=== PATIENT | male | born 1950 | race Caucasian/White ===

== ENCOUNTER → 2016-04-14 | Outpatient (CLI) | payer MEDICARE, OTHER ==
[2016-04-14 14:42] LABS: CREATININE FOR GFR 1.85 MG/DL (0.70-1.30); GLOMERULAR FILTRATION RATE 39.1 (>49)
== END ==
LOC: M LAB 12:19
DX: N20.0 Calculus of kidney (principal)

== ENCOUNTER → 2016-05-16 | Outpatient (REF) | payer MEDICARE, OTHER ==
[2016-05-16 19:39] LABS: INR 1.6
== END ==
LOC: M LAB REF 17:08
PROVIDERS: ATTEND Nurse Practitioner Family
DX: Z86.718 Personal history of other venous thrombosis and embolism (principal)

== ENCOUNTER → 2016-05-18 | Outpatient (REF) | payer MEDICARE, OTHER ==
[2016-05-18 17:00] LABS: INR 1.52
== END ==
LOC: M LAB REF 16:11
PROVIDERS: ATTEND Nurse Practitioner Family
DX: Z86.718 Personal history of other venous thrombosis and embolism (principal)

== ENCOUNTER → 2016-07-14 | Outpatient (REF) | payer MEDICARE, OTHER ==
[2016-07-14 17:47] LABS: PERCENT SATURATION 8.1 % (19.7-37.4)
== END ==
LOC: M LAB REF 16:35
PROVIDERS: ATTEND Internal Medicine
DX: D64.9 Anemia, unspecified (principal)

== ENCOUNTER → 2016-08-22 | Outpatient (REF) | payer MEDICARE, OTHER | LOC: M LAB REF 20:10 | PROVIDERS: ATTEND Physician Assistant | DX: N39.0 Urinary tract infection, site not specified (principal) ==

== ENCOUNTER 2016-09-18 11:15 | Inpatient (IN) | payer MEDICARE, OTHER ==
[~2016-09-18] VITALS: Ht 177.8 cm; Wt 103.0 kg
[2016-09-18] MEDS ORDERED: MULT1CHW39 PO (11:29)
[2016-09-18] MEDS ORDERED: LOPR1TAB6 PO (11:29)
[2016-09-18] MEDS ORDERED: COUM2TAB22 PO (11:29)
[2016-09-18] MEDS ORDERED: FOLI1TAB4 PO (11:29)
[2016-09-18] MEDS ORDERED: ATOR40TA75 PO (11:29)
[2016-09-18] MEDS ORDERED: LEVO25TA5 PO (11:29)
[2016-09-18] MEDS ORDERED: ASPI325T PO (11:29)
[2016-09-18] MEDS ORDERED: APAP325T4 PO (11:29)
[2016-09-18] MEDS ORDERED: FERR325T16 PO (11:29)
[2016-09-18] MEDS ORDERED: ASCO25TA PO (11:29)
[2016-09-18] MEDS ORDERED: FAMO40TA3 PO (11:29)
[2016-09-18] MEDS ORDERED: ONDANSETRON 4MG/2ML VIAL (J2405) IV ONE (12:00)
[2016-09-18] MEDS ORDERED: MORPHINE 2 MG/ML 1ML SYRINGE IV ONE (12:00)
--- NOTE | 2016-09-18 12:37 | REP ---
PORTABLE CHEST: AP portable view of the chest is performed and compared to prior study of 01/01/2016. Multiple new bilateral pulmonary nodules are present. The largest appears to be in the right upper lobe measuring about 4 cm in diameter. Heart does not appear to be significantly enlarged. Multiple sternal wires are present. Multiple screws and plates are seen in the spine. IMPRESSION: Multiple bilateral pulmonary nodules are new compared to prior studies. Signed by Arian Fischer MD 09/18/2016 07:29 P
[2016-09-18 12:48] LABS: VENOUS O2 SATURATION 60.1 % (60.0-80.0); VENOUS PARTIAL PRESSURE CO2 38.6 mmHg (38.0-50.0); VENOUS PARTIAL PRESSURE O2 33.9 mmHg (30.0-50.0); VENOUS STANDARD HCO3 26.5 MEQ/L; VENOUS TOTAL CO2 28.1 MEQ/L (24.0-28.0)
[2016-09-18 12:48] LABS: BASO % 0.2 % (0.0-1.0); EOS # 0.2 K/mm3 (0.0-0.50); EOS % 1.2 % (0.0-3.0); LARGE UNSTAINED CELL # 0.3 K/mm3 (0.0-0.4); LARGE UNSTAINED CELL % 1.3 % (0.0-4.0); LYMPH # 0.9 K/mm3 (1.5-4.5); LYMPH % 4.4 % (24.0-44.0); MEAN CORPUSCULAR HEMOGLOBIN 23.7 pg (27.0-33.0); MEAN CORPUSCULAR HGB CONC 31.2 g/dl (32.0-36.5); MONO % 4.8 % (0.0-5.0); NEUTROPHILS # 17.8 K/mm3 (1.8-7.7); PLATELET COUNT, AUTOMATED 639 k/mm3 (150-450); RED CELL DISTRIBUTION WIDTH 16.3 % (11.5-14.5); WHITE BLOOD COUNT 20.2 K/mm3 (4.0-10.0)
[2016-09-18 12:56] LABS: INR 2.36
[2016-09-18 13:02] LABS: CALCIUM OXALATE CRYSTALS SMALL
[2016-09-18 13:17] LABS: ALKALINE PHOSPHATASE 408 U/L (45-117); ALT/SGPT 106 U/L (12-78); AMYLASE 69 U/L (25-115); AST/SGOT 108 U/L (15-37); BILIRUBIN,DIRECT 0.4 MG/DL (0.0-0.2); BILIRUBIN,TOTAL 0.8 MG/DL (0.2-1.0); BLOOD UREA NITROGEN 24 MG/DL (7-18); CALCIUM LEVEL 10.2 MG/DL (8.8-10.2); CARBON DIOXIDE LEVEL 25 MEQ/L (21-32); CHLORIDE LEVEL 92 MEQ/L (98-107); CREATININE FOR GFR 1.65 MG/DL (0.70-1.30); GLUCOSE, FASTING 103 MG/DL (80-110); POTASSIUM SERUM 4.6 MEQ/L (3.5-5.1); TOTAL PROTEIN 7.1 GM/DL (6.4-8.2)
[2016-09-18 13:28] LABS: ANION GAP 11 MEQ/L (8-16); SODIUM LEVEL 128 MEQ/L (136-145)
[2016-09-18 13:29] LABS: ALBUMIN 1.8 GM/DL (3.2-5.2); ALBUMIN/GLOBULIN RATIO 0.34 (1.00-1.93)
[2016-09-18] MEDS ORDERED: ACETAMINOPHEN TAB 650MG DOSE (2X325MG) PO ONE (14:00)
[2016-09-18] MEDS ORDERED: DILUENT IV ONE (15:45)
[2016-09-18] MEDS ORDERED: NS IV ONE (15:45)
[2016-09-18] MEDS ORDERED: CEFEPIME HCL 2 GM in D5W MINI-BAG PLUS 50 ML IV ONE (15:45)
[2016-09-18] MEDS ORDERED: METO1TAB87 PO (15:50)
[2016-09-18] MEDS ORDERED: VITMTA PO (15:50)
[2016-09-18] MEDS ORDERED: WARF4TAB51 PO (15:50)
[2016-09-18] MEDS ORDERED: BISACODYL 5 MG TAB PO PRN (17:00)
[2016-09-18] MEDS ORDERED: ONDANSETRON 4MG/2ML VIAL (J2405) IV PRN (17:00)
[2016-09-18 18:27] VITALS: BP 143/79
[2016-09-18] MEDS: VANCOMYCIN HCL 1,000 MG, VIAL MATE ADAPTER 1 EACH in D5W 250 ML IV SCH (18:33)
[2016-09-18] MEDS: NS 1,000 ML IV SCH (18:33)
[2016-09-18] MEDS: PERCOCET 5MG/325MG TAB PO PRN (18:34)
[2016-09-18] MEDS ORDERED: MEPERIDINE 50 MG/ML 1ML VIAL (J2175) IM ONE (18:45)
--- NOTE | 2016-09-18 19:56 | REP ---
CT CHEST WITHOUT IV CONTRAST: CT chest is performed without IV contrast. Sagittal and coronal reconstruction images are performed. Multiple bilateral nodules are seen in the lungs and hilar regions. These are of varying sizes. Some are pleural based. The largest is in the right upper lobe and is pleural based measuring 4 cm in maximum diameter. Consolidative infiltrate or atelectasis is seen in the left lower lobe with a small left pleural effusion The heart is normal in size. There is no pericardial effusion. Small mediastinal lymph nodes are present. Small axillary lymph nodes are present. There are degenerative changes of the spine. IMPRESSION: Multiple bilateral pulmonary and hilar nodules, largest is 4 cm in diameter in the right upper lobe. There is mild consolidative left lower lobe atelectasis/infiltrate with a small left effusion. There is also an area of pleural thickening in the left anterior mediastinum diffusely of uncertain significance. This could be post surgical scarring in this patient who has had prior Thoracic surgery. Signed by Arian Fischer MD 09/19/2016 01:05 P
--- NOTE | 2016-09-18 19:59 | REP ---
CT ABDOMEN AND PELVIS WITHOUT CONTRAST: CT abdomen and pelvis is performed without oral or IV contrast with a sagittal and coronal reconstruction images performed. Liver, spleen, adrenals, pancreas, and kidneys are grossly unremarkable. There is no hydronephrosis. Urostomy is seen in the right lower quadrant. There are moderate atherosclerotic calcifications of abdominal aorta without aneurysm. There is a mildly enlarged right external iliac lymph node 1.3 cm in short axis dimension. Another mildly enlarged lymph node is seen along the left pelvic sidewall 1.3 cm in short axis dimension. Scattered diverticula are seen of the sigmoid and left colon. No acute bowel inflammation is seen. There is no free air or free fluid. IMPRESSION: Mildly enlarged lymph node is seen in the left external iliac region and along the left pelvic sidewall both measuring 1.3 cm in short axis dimension. Urostomy right lower quadrant. Colonic diverticulosis. No acute findings. Signed by Arian Fischer MD 09/19/2016 01:05 P
[2016-09-18 20:00] VITALS: BP 111/56
[2016-09-18] MEDS ORDERED: VANCOMYCIN HCL 750 MG, VIAL MATE ADAPTER 1 EACH in D5W 250 ML IV ONE (21:00)
[2016-09-18] MEDS: FERROUS GLUCONATE 324 MG TAB PO SCH (21:51)
[2016-09-18] MEDS: ATORVASTATIN 20 MG TAB PO SCH (21:51)
[2016-09-18] MEDS: PIPERACILLIN/TAZOBACTAM SOD 3.375 GM in D5W MINI-BAG PLUS 50 ML IV SCH (21:53)
[2016-09-18] MEDS: METOPROLOL TART 25 MG TABLET PO SCH (21:53)
[2016-09-18] MEDS: HEPARIN SOD (PORCINE) 5000 UNITS/ML VIAL SC SCH (21:55)
[2016-09-19] VITALS: BP 114/57
[2016-09-19] MEDS: PIPERACILLIN/TAZOBACTAM SOD 3.375 GM in D5W MINI-BAG PLUS 50 ML IV SCH ×4 (03:44→21:34)
[2016-09-19 04:00] VITALS: BP 133/64
[2016-09-19] MEDS: LEVOTHYROXINE 50MCG TABLET (0.05MG) PO SCH (05:13)
[2016-09-19] MEDS: ACETAMINOPHEN TAB 650MG DOSE (2X325MG) PO PRN ×4 (05:15→23:53)
[2016-09-19] MEDS: VANCOMYCIN HCL 1,000 MG, VIAL MATE ADAPTER 1 EACH in D5W 250 ML IV SCH (05:25)
[2016-09-19 06:09] LABS: INR 2.8
[2016-09-19 06:22] LABS: ADD MANUAL DIFFER YES; DIFF SLIDE NUMBER 74; MEAN CORPUSCULAR HEMOGLOBIN 23.7 pg (27.0-33.0); MEAN CORPUSCULAR HGB CONC 30.7 g/dl (32.0-36.5); MEAN CORPUSCULAR VOLUME 77.3 fl (80.0-96.0); RED CELL DISTRIBUTION WIDTH 16.7 % (11.5-14.5); WHITE BLOOD COUNT 14.1 K/mm3 (4.0-10.0)
[2016-09-19 06:24] LABS: PLATELET COUNT, AUTOMATED 479 k/mm3 (150-450)
[2016-09-19 06:28] LABS: ALBUMIN 1.5 GM/DL (3.2-5.2); ALBUMIN/GLOBULIN RATIO 0.34 (1.00-1.93); BILIRUBIN,TOTAL 0.8 MG/DL (0.2-1.0); CALCIUM LEVEL 9.4 MG/DL (8.8-10.2); CREATININE FOR GFR 2.21 MG/DL (0.70-1.30); GLOMERULAR FILTRATION RATE 31.8 (>49); MAGNESIUM LEVEL 2.4 MG/DL (1.8-2.4); POTASSIUM SERUM 4.4 MEQ/L (3.5-5.1); TOTAL PROTEIN 5.9 GM/DL (6.4-8.2)
[2016-09-19 06:41] LABS: BANDS 3 % (< 11); EOSINOPHILS 4 % (0-5)
[2016-09-19 06:42] LABS: ANISOCYTOSIS 1+; HYPOCHROMASIA 2+; POIKILOCYTOSIS 1+
--- NOTE | 2016-09-19 07:47 | HPE ---
DATE OF ADMISSION: 09/18/2016 PRIMARY CARE PHYSICIAN: Patient was following with Dr. Shin; however, patient's primary care provider (PCP) is Dr. Chaudhry. However, patient has not been seen by Dr. Chaudhry yet. UROLOGIST: Dr. Lorenzo Kay, in [place], phone number . ONCOLOGIST: Dr. Debra Levin, in [place], phone number . CHIEF COMPLAINT: Fever and rigor. HISTORY OF PRESENT ILLNESS: Mr. Damon is a 66-year-old male with multiple past medical history including bladder cancer with lung metastasis who presented to the emergency room (ER) due to experiencing fever as well as rigor. Patient was accompanied by his , who expressed that about a month ago, patient developed fever and temperature was mostly steady and the highest one was 103. The patient went to [place], where they performed different tests and they could not find the origin of the fever and they diagnosed patient with fever with unknown origin. Patient was sent home. Patient was following with the oncologist, who started patient on Keytruda and patient received the first dose on Monday. After that, patient started having higher fever, around 103-104, constantly, every day, according to the . Tylenol and using ice decreased the temperature; however, temperature rebounded back to high temperature. Oncologist was called yesterday by , who expressed that patient has to go either to Urgent Care or come to the ER; therefore, they brought the patient in today to the ER. Patient was diagnosed with bladder cancer last year, after patient had hematuria. Patient finished a course of chemotherapy last year and recently, patient had a cystectomy, and at this moment, patient has a colostomy bag. Patient denies noticing hematuria. Patient also denies lightheadedness or dizziness, as well as sick contacts. It was also noticed by the that patient has a dry cough since two weeks ago, when he was in [place]. According to a phone conversation that the ER had with the oncologist, on the previous CT, patient had bilateral pleural effusions, however, no infiltration was noticed. However, in this visit, chest CT indicated left lower lobe infiltrate and a small effusion. Hospitalist was called to admit the patient . ALLERGIES: No known allergies. PAST MEDICAL HISTORY: 1. Bladder cancer. 2. Lung nodules, possible metastasis. 3. Diabetes. 4. History of deep venous thrombosis (DVT). PAST SURGICAL HISTORY: 1. Cystectomy. 2. Appendectomy. 3. Abdominal hernia repair. 4. Vasectomy. 5. Removal of deep venous thrombosis (DVT) of the right lower extremity. 6. Biopsy of the lung. 7. Coronary artery bypass graft (CABG). HOME MEDICATIONS: - acetaminophen 650 mg by mouth every 6 hours as needed for pain - vitamin C 500 mg by mouth daily - aspirin 325 mg by mouth daily - atorvastatin 40 mg by mouth at bedtime - famotidine 40 mg by mouth daily - gluconate 324 mg by mouth twice a day - folic acid 1 mg by mouth daily - Synthroid 50 mcg by mouth daily - metoprolol 25 mg by mouth daily - multivitamin 1 tablet by mouth daily - Coumadin 8 mg by mouth two times a week on Monday and - Coumadin 6 mg by mouth five times a week on Monday, Monday, Monday, Monday, Monday evenings SOCIAL HISTORY: Patient drinks alcoholic beverages occasionally; however, patient denies recent use of alcohol. The last drink was 2-3 weeks ago, one beer. Patient started drinking at age 17. Also, patient started smoking at age 17; however, patient stopped smoking two years ago. Patient smokes less than a pack a day. Patient denies illicit drug use. Patient has one dog and patient has only been in [place]. Patient has two sons who are healthy for their ages. FAMILY HISTORY: Patient has one sister and two brothers who are healthy for their ages. Father at age 69 due to tumor, pancreatic cancer secondary to alcoholism. Patient's mother due to renal failure at age 75. REVIEW OF SYSTEMS: GENERAL: Patient expressed that he has been having a fever, rigor, chills, night sweats. Patient does not know if he has gained or lost weight. HEENT: Patient denies acute vision or hearing changes. Patient also denies lightheadedness or dizziness. Patient also denies problems with chewing food or sinusitis. NECK: Patient denies lumps, bumps or decreased range of motion of his neck. HEART: Patient denies palpitations, racing or skipping heart beat, chest pain. LUNGS: Patient has been having dry cough for the past two weeks. Also, shortness of breath with activity. ABDOMEN: Patient denies abdominal pain, nausea, vomiting, diarrhea, constipation, melena, hematochezia or hemoptysis. EXTREMITIES: Patient, according to the , had lower extremity edema when he was discharged from the hospital; however, patient does not have any swelling of his legs. NEUROLOGICAL: Patient denies history of transient ischemic attack (TIA), seizures, or seizure-type activities. PHYSICAL EXAMINATION: VITAL SIGNS: Temperature 99.5, pulse 94, respiratory rate 20, blood pressure 97/54, pulse oximetry 95 on 2 liters nasal cannula. HEENT: Normocephalic, atraumatic. Pupils equal and reactive to light. Oral mucosa is moist. NECK: Soft, supple. No lymphadenopathy. No thyromegaly. No jugular venous distention (JVD). HEART: Regular rate and rhythm. Patient has a 5/6 systolic murmur. LUNGS: Patient has scattered rhonchi at the bases of the lungs as well as decreased lung sounds. ABDOMEN: Soft, nontender. Positive bowel sounds in all quadrants. Nontender to palpation. Patient has urinary ostomy bag. No hematuria was noted. Urine color is yellow. Stoma was red. NEUROLOGIC: Cranial nerves II-XII were intact. No focal deficit changes. EXTREMITIES: Patient has mild lower extremity edema. +2 pulses in both lower extremities. Patient has normal range of motion both upper and lower extremities. Patient has normal sensation in both lower extremities and patient has about 3 cm surgical incision on the medial side of the right lower extremity due to deep venous thrombosis (DVT) that is healed for arterectomy. LABORATORY DATA: White blood cells 20.2, red blood cells 3.55, hemoglobin 8.4, hematocrit 27, MCV 76, MCH 23.7, MCHC 31.2, RDW 16.3, platelet count 639. Neutrophil percentage 88, lymphocyte percentage 4.4, monocyte percentage 4.8, eosinophile percentage 1.2, basophile percentage 0.2, lymphocyte percentage 1.3. Bicarbonate 26.5. Arterial blood gas (ABG): pH 7.462, pCO2 39.6, pO2 33.9, CO3 27, total CO2 28.1, O2 saturation 60.1, base excess 3. PT 26.7. INR 2.36. APTT 63.2. Sodium 128, potassium 4.6, chloride 92, carbon dioxide 25, anion gap 11, BUN 24, creatinine 1.65, fasting glucose 103, lactic acid 2.7, calcium 10.2. Total bilirubin 0.8, direct bilirubin 0.4, AST 108, ALT 106, alkaline phosphatase 408. Total creatinine kinase 82, CK-MB 1, CK-MB ambrosio index 1.21. C-reactive protein 33.6. Total protein 7.1. Albumin 1.8. Amylase 69. Urinalysis: Urine color: Esther. Urine appearance: Hazy. Urine pH: 5. Urine specific gravity 1.016. Urine protein 2+. Urine glucose negative. Urine ketones negative. Urine blood negative. Urine nitrate negative. Urine bilirubin negative. Urine urobilinogen 0.2. Urine leukocyte esterase 1+. Urine white blood cells 23. Urine red blood cells 4. Urine hyaline casts zero. Urine bacteria 1+. Urine squamous epithelial cells zero. Blood culture is pending. Urine culture is pending. IMAGING TECHNIQUES: A chest x-ray shows multiple bilateral pulmonary nodules which are new compared to the prior studies. Chest CT without contrast shows multiple bilateral pulmonary and hilar nodules, as large as 4 cm, in the right upper lobe. Also is indicated left lower lobe infiltrate and a small effusion. CT abdomen and pelvis without contrast indicated two mildly enlarged left pelvic and iliac lymph nodes. ASSESSMENT AND PLAN: 1. Possible pneumonia. Patient has left lower lobe infiltration and a small effusion, which is new for this patient compared to previous study, based on the oncologist. Due to his past medical history, I have started patient on vancomycin and Zosyn. Also, we have ordered blood cultures as well as sputum culture and respiratory panel. Results are pending at this time. Also, we are monitoring C-reactive protein. 2. Hyponatremia. This is possibly secondary to medication, Keytruda. Patient receiving 1 liter normal saline. We will continue monitoring patient for any abnormal symptoms. 3. Elevated lactic acid. qSOFA indicated high risk. This is possibly secondary to infection (respiratory versus urinary tract). At this time, patient is on vancomycin and Zosyn. We will continue patient on intravenous (IV) fluid. We will repeat the lactic acid. 4. Macrocytic anemia. According to the , patient has received a unit of blood two weeks ago when he was at the hospital. Patient is on ferrous sulfate. We will recheck the patient's hemoglobin and hematocrit again tomorrow. Also, I have ordered an occult blood test. Results are pending at this time. 5. Iron deficiency. Patient is on ferrous sulfate. 6. Deep venous thrombosis (DVT) prophylaxis. Patient is on heparin. 7. History of coronary artery bypass graft (CABG). Patient was started on warfarin; however, patient refused taking warfarin for the past two days. Therefore, we have held the warfarin at this time. Also, patient is on metoprolol; however, we put holding parameters. We will continue with holding parameters. 8. Abnormal urinalysis (UA). This is indicative of a possible urinary tract infection (UTI); however, urine culture is pending at this time. Patient is on Zosyn and vancomycin. We will continue to monitor the patient for any abnormal symptoms. My preceptor for this patient encounter was Dr. Nicole. The preceptor was physically present in the building during the encounter and was fully available as needed. All aspects of the patient interview, examination, medical decision-making process, and medical care plan development were reviewed and approved by the preceptor. The preceptor is aware and concurs with the plan as stated in the body of this note and will attest to such by his/her co-signature. TETE
[2016-09-19 07:55] LABS: RETIC HEMOGLOBIN CONTENT CHr 22.8 PG (24-36); RETICULOCYTE ABSOLUTE ADVIA212 30 x10(9)/L (17-77)
[2016-09-19 08:00] VITALS: BP 136/73
[2016-09-19 08:00] LABS: REASON FOR REVIEW ANEMIA / RBC MORPH
--- NOTE | 2016-09-19 08:17 | ECGEPIP ---
Stationary ECG Study [facility] - ED Test Date: 2016-09-18 Pat Name: ISAÍAS CLANCY Department: Room: - Gender: M Hoop Cutter: JHONNY : 1950 Requested By: Shayla Xiao Order Number: [id number] Reading MD: Ezequiel Byrnes Measurements Intervals [place] Rate: 111 P: 56 NE: 148 QRS: 12 QRSD: 104 T: 58 QT: 332 QTc: 452 Interpretive Statements SINUS TACHYCARDIA INC. RBBB POSSIBLE INFERIOR MYOCARDIAL INFARCTION, OF INDETERMINATE AGE NO PRIORS Electronically Signed On 09-19-2016 8:16:46 EDT by Ezequiel Byrnes
[2016-09-19 08:40] LABS: FERRITIN 1815 NG/ML (26-388); GAMMA GLUTAMYLTRANSPEPTIDASE 322 U/L (15-85); PERCENT SATURATION 6.1 % (19.7-37.4); TOTAL IRON BINDING CAPACITY 131 UG/DL (250-450)
[2016-09-19] MEDS: HEPARIN SOD (PORCINE) 5000 UNITS/ML VIAL SC SCH ×2 (08:58→21:34)
[2016-09-19] MEDS: ASPIRIN 325 MG TAB PO SCH (08:58)
[2016-09-19] MEDS: FOLIC ACID 1 MG TAB PO SCH (08:59)
[2016-09-19] MEDS: MULTIVITAMINS/MINERALS THERAP 1 TAB PO SCH (08:59)
[2016-09-19] MEDS: FAMOTIDINE 20 MG TAB PO SCH (08:59)
[2016-09-19] MEDS: FERROUS GLUCONATE 324 MG TAB PO SCH ×2 (08:59→21:33)
[2016-09-19] MEDS: ASCORBIC ACID 500 MG TAB PO SCH (08:59)
[2016-09-19] MEDS: METOPROLOL TART 25 MG TABLET PO SCH ×2 (09:00→21:33)
[2016-09-19 10:06] LABS: VITAMIN B12 LEVEL 987 PG/ML (247-911)
[2016-09-19 10:07] LABS: FOLATE > 24.0 NG/ML (>5.4)
[2016-09-19 14:27] LABS: MEAN CORPUSCULAR HEMOGLOBIN 24.7 pg (27.0-33.0); MEAN CORPUSCULAR HGB CONC 31.7 g/dl (32.0-36.5); RED CELL DISTRIBUTION WIDTH 16.5 % (11.5-14.5); WHITE BLOOD COUNT 15.4 K/mm3 (4.0-10.0)
[2016-09-19 14:32] LABS: INR 3.29
[2016-09-19 16:00] VITALS: BP 114/63
[2016-09-19] MEDS: NS 1,000 ML IV SCH ×2 (16:08→17:16)
[2016-09-19 20:00] VITALS: BP 123/57
--- NOTE | 2016-09-19 20:07 | IPN ---
DATE: 09/19/2016 Time patient was seen was this morning at 8:00 and also again at 1400 hours The patient has been seen and examined at bedside. No acute events overnight. This morning, the patient appeared to be anemic and received one transfusion. The patient continued to have fever throughout the night. Denies any chest pain , trouble breathing, abdominal pain, nausea, vomiting, diarrhea or constipation. PHYSICAL EXAMINATION: VITAL SIGNS: Temperature was 101.7, pulse 100, respirations 20, blood pressure 136/73, oxygen saturation 96% on 2 liters of nasal cannula. GENERAL: The patient is a 66-year-old male who was alert, awake, oriented times three. Appears to be in mild distress. Lying comfortably in bed with head elevated at a 45 degree angle. HEENT: Normocephalic, atraumatic. Extraocular motors intact. Mucosa moist. NECK: Supple. No neck lymphadenopathy. CARDIOVASCULAR: Tachycardic. There was a 3/6 murmur for S1 and no murmur for S2. LUNGS: Clear to auscultation bilaterally. No wheezes, rales or rhonchi. ABDOMEN: Positive bowel sounds. Soft, nontender, nondistended. No peritoneal signs. No ecchymosis. EXTREMITIES: No edema, clubbing, or cyanosis. SKIN: Warm and dry. NEUROLOGIC: Cranial nerves II through XII intact. No focal neurologic deficits. LABORATORY DATA: WBC 15.4, hemoglobin 8.1. This morning it was 6.9 and the day before was 8.4. Hematocrit was 25.5 with a platelet count of 436. Sodium 129, potassium 4.4, chloride 97, bicarbonate 23, BUN 33, creatinine 2.31, worsened from the day before at 1.65. Fasting glucose was 132. Lactic acid yesterday at noon was 2.7. Repeat lactic acid was 1.7, calcium 9.4, magnesium 2.4, iron was found to be 8, TIBC 131, transferrin percent saturation was 6.1, ferritin level was 1815, total bilirubin 0.8, GGT appears to be elevated at 322, AST 123, ALT 94, alkaline phosphatase 431, C-reactive protein was elevated at 30.9, which improved somewhat from yesterday at 33.5, total protein 5.9, albumin 1.5, reduced, vitamin B12 was elevated at 987, folate was greater than 24. The patient's coagulation appears to be elevated at 3.29 and this morning was 2.8 and before was 2.36. The patient's blood culture times two shows no growth after 24 hours. Urine culture is pending. The patient's peripheral smear shows a severe microcytic anemia in patient with a history of bladder cancer and lung metastases, consistent with anemia associated with chronic disease or malignancy. ASSESSMENT AND PLAN: 66-year-old male with a past medical history of bladder cancer, status post bladder resection and ileal conduit urinary diversion, lung nodules, which is likely cancer and follows with oncology, noninsulin dependent type 2 diabetes, history of deep vein thrombosis (DVT), factor V Leiden on warfarin at home, coronary artery disease status post coronary artery bypass graft (CABG), presented with: 1. Fever and rigor. The patient does have a possible left lower lobe infiltrate with a small amount of effusion versus atelectasis. He has been receiving empiric antibiotic with vancomycin and Zosyn. According to the patient, he is feeling a little better; however, he is still having fever. C-reactive protein has improved slightly. Blood culture has been negative. I have contacted the patient's oncologist, Dr. Romo (number found in H&P) who believed that the fever was likely secondary to tumor fever and the patient likely does not need further therapy due to patient had a lengthy course of antibiotics from previous recent admissions at [facility] and [facility] and should be seen on Monday in his office for further management, which has been conveyed with the patient's family and they agreed; however, would like to stay until tomorrow and followup with culture and laboratory work. 2. Acute anemia on chronic iron deficiency anemia, likely secondary to chemotherapy, Keytruda, which was given last Monday. Patient received transfusion prior to admission. One unit of packed red blood cell has been given this am and the patient tolerated it well. Repeat hemoglobin and hematocrit shows hemoglobin came back up from 6.9 to 8.1. Another units has been given due to patient still has sob and had CAD. Peripheral smear has shown that the patient's anemia was likely secondary to chronic disease versus malignancy. 3. Hyponatremia, likely secondary to syndrome of inappropriate secretion of antidiuretic hormone (SIADH) from cancer versus the patient's medication. Continue IV fluids currently. 4. Leukocytosis appears to be improving, possible dilutional. 5. Lactic acidosis, which has resolved. 6. Acute on chronic kidney disease, likely pre renal. Continue IVF. 7. History of deep vein thrombosis (DVT) and also a history of factor V Leiden. The patient refused taking warfarin since a few days ago before admission. According to patient, "he just doesn't want to take it." Today, the patient's INR appears to be elevated and continues to elevate at this time, despite patient is not on Warfarin for a few days. We will continue to rule out disseminated intravascular coagulation; however, platelets have been within normal range. 8. Coronary artery disease, status post coronary artery bypass graft (CABG). Continue to monitor. The patient currently does not take warfarin due to he refused, he was taking it for both CAD and DVT per him. Continue beta debbie with hold parameters. 9. Abnormal urinalysis with possible urinary tract infection (UTI). Urine culture is pending. We will follow and continue empiric antibiotics for now. 10. Transaminitis, which appears to be new. Hepatitis panel has been negative. Alkaline phosphatase appears to be elevated. GTT has been elevated as well, indicating a hepatic source. AMA has been ordered. The patient will likely need to have a workup with oncology as outpatient for further management. This is possibly related to the patient's malignancy.Will change Tylenol 650 mg from q4h to q 6H due to concern of possible active liver disease. Hepatitis panel were negative. 11. DVT prophylaxis on hold due to patient is having INR above 3. DISPOSITION: The patient's fever and condition has been discussed with his oncologist, who stated that he would like to see the patient on Monday for further management. The patient is also adamant about leaving tomorrow. We will possibly switch the patient oral antibiotics versus stopping antibiotics entirely. We will obtain records from [facility] and also [facility] regarding workup the patient already had. At this point patient is hemodynamically stable, the active concerns are LKEBER, transaminitis with elevated INR, anemia, leukocytosis, fever. Code status: Patient stated he wants to be full code this morning. The patient has been discussed with attending doctor, Dr. Faust. I have both independently examined this patient as well as reviewed the dictated note. I have discussed in detail with the resident the findings and plan of treatment as documented in the residents note. I will continue to follow the patient and offer further guidance to the patients care as necessary during this hospital stay. TETE
[2016-09-19 21:15] LABS: MEAN CORPUSCULAR HEMOGLOBIN 25.6 pg (27.0-33.0); MEAN CORPUSCULAR HGB CONC 32.4 g/dl (32.0-36.5); MEAN CORPUSCULAR VOLUME 79.1 fl (80.0-96.0); RED CELL DISTRIBUTION WIDTH 16.3 % (11.5-14.5); WHITE BLOOD COUNT 13.8 K/mm3 (4.0-10.0)
[2016-09-19] MEDS: ATORVASTATIN 20 MG TAB PO SCH (21:34)
[2016-09-20] VITALS: BP 127/67
[2016-09-20] MEDS: PIPERACILLIN/TAZOBACTAM SOD 3.375 GM in D5W MINI-BAG PLUS 50 ML IV SCH (03:12)
[2016-09-20 04:00] VITALS: BP 117/57
[2016-09-20] MEDS: LEVOTHYROXINE 50MCG TABLET (0.05MG) PO SCH (06:02)
[2016-09-20 06:03] LABS: INR 4.19
[2016-09-20 06:05] LABS: BASO # 0.1 K/mm3 (0.0-0.2); BASO % 0.4 % (0.0-1.0); EOS # 0.6 K/mm3 (0.0-0.50); EOS % 3.2 % (0.0-3.0); LARGE UNSTAINED CELL # 0.3 K/mm3 (0.0-0.4); LARGE UNSTAINED CELL % 1.5 % (0.0-4.0); LYMPH # 0.8 K/mm3 (1.5-4.5); LYMPH % 4.2 % (24.0-44.0); MEAN CORPUSCULAR HEMOGLOBIN 25.2 pg (27.0-33.0); MEAN CORPUSCULAR HGB CONC 32.2 g/dl (32.0-36.5); MEAN CORPUSCULAR VOLUME 78.1 fl (80.0-96.0); MONO # 0.5 K/mm3 (0.0-0.8); MONO % 2.8 % (0.0-5.0); NEUTROPHILS # 16.1 K/mm3 (1.8-7.7); NEUTROPHILS % 87.9 % (36.0-66.0); PLATELET COUNT, AUTOMATED 446 k/mm3 (150-450); RED CELL DISTRIBUTION WIDTH 16.3 % (11.5-14.5); WHITE BLOOD COUNT 18.3 K/mm3 (4.0-10.0)
[2016-09-20 07:23] LABS: ALBUMIN 1.4 GM/DL (3.2-5.2); ALBUMIN/GLOBULIN RATIO 0.3 (1.00-1.93); BILIRUBIN,TOTAL 1.8 MG/DL (0.2-1.0); CALCIUM LEVEL 9.1 MG/DL (8.8-10.2); CREATININE FOR GFR 3.18 MG/DL (0.70-1.30); GLOMERULAR FILTRATION RATE 20.9 (>49); MAGNESIUM LEVEL 2.4 MG/DL (1.8-2.4); POTASSIUM SERUM 4.8 MEQ/L (3.5-5.1); TOTAL PROTEIN 6.1 GM/DL (6.4-8.2)
[2016-09-20 08:00] VITALS: BP 150/64
[2016-09-20] MEDS: FAMOTIDINE 20 MG TAB PO SCH (09:43)
[2016-09-20] MEDS: MULTIVITAMINS/MINERALS THERAP 1 TAB PO SCH (09:43)
[2016-09-20] MEDS: FOLIC ACID 1 MG TAB PO SCH (09:44)
[2016-09-20] MEDS: ASCORBIC ACID 500 MG TAB PO SCH (09:44)
[2016-09-20] MEDS: FERROUS GLUCONATE 324 MG TAB PO SCH (09:44)
[2016-09-20] MEDS: ASPIRIN 325 MG TAB PO SCH (09:44)
[2016-09-20] MEDS: METOPROLOL TART 25 MG TABLET PO SCH ×2 (09:44→21:59)
[2016-09-20] MEDS ORDERED: BISAC5TA PO (09:49)
[2016-09-20] MEDS ORDERED: ONDA4VLL IV (09:49)
[2016-09-20] MEDS ORDERED: MERO500I IV (09:51)
[2016-09-20 09:54] LABS: FIBRINOGEN 740 MG/DL (221-452)
--- NOTE | 2016-09-20 11:01 | DSES ---
DATE OF ADMISSION: 09/18/2016 DATE OF TRANSFER: 09/20/2016 ADMISSION DIAGNOSES: 1. Possible pneumonia. 2. Hyponatremia. 3. Elevated lactic acid. 4. Microcytic anemia. 5. Iron deficiency. DISCHARGE DIAGNOSES: 1. Fever and rigors likely secondary to the patient's cancer versus left lower lobe lung infiltrate and urinary tract infection. 2. Acute anemia on chronic deficiency anemia likely secondary to chemotherapy versus chronic kidney disease versus occult blood loss. 3. Hyponatremia, likely secondary to syndrome of inappropriate secretion of antidiuretic hormone (SIADH). 4. Leukocytosis likely secondary cancer versus infectious etiology. 5. Lactic acidosis resolved. 6. Acute on chronic kidney disease, possibly secondary to medication versus prerenal versus obstructive. 7. History of deep vein thrombosis (DVT) with history of Factor V Leiden, refusing Coumadin. 8. Supratherapeutic INR likely from Coumadin, possibly from liver failure. 9. Transaminitis, appears to be new, possibly drug related versus liver failure due to prolonged Tylenol use. 10. Coronary artery disease status post coronary artery bypass grafting (CABG). Was on warfarin and aspirin. Continue aspirin. 11. Urinary tract infection, grew Pseudomonas. PROCEDURE/IMAGING: The patient had a portable chest x-ray on 09/18/2016 which showed multiple bilateral pulmonary nodules, new compared to prior studies. On 09/18/[address] of the chest without contrast which showed multiple bilateral pulmonary and hilar nodules, largest one was 4 cm in diameter in the right upper lobe and mild consolidative lower lobe atelectasis infiltrate with small left effusion. Area of pleural thickening in the left anterior mediastinum, diffusely of uncertain significance. Patient had a CT of the abdomen and pelvis on 09/19/2016 with mildly enlarged lymph nodes in the left external iliac region along the left pelvic sidewall, both measuring 1.3 cm in short axis dimension. Urostomy right lower quadrant. Colonic diverticulosis. No acute findings. Imaging that are pending include renal ultrasound. Labs that are pending including osmolality of the serum, BNP, urine creatinine and urine sodium, fibrinogen, D-Dimer, and antimitochondrial antibody. Pertinent labs including today's CBC shows WBC of 18.3, hemoglobin 9, hematocrit 27.9 with a platelet count of 446 and MCV of 78.1. Sodium 137, potassium 4.8, chloride 104, bicarb 22, BUN 42, creatinine 3.18, GFR 20.9, fasting glucose 109. The patient's respiratory panel was negative. Methicillin-resistant Staphylococcus aureus (MRSA) screening is pending. Stool for occult blood was negative. Blood cultures times two after one day is negative. The patient's urine culture shows Pseudomonas, which was sensitive to everything except nitrofurantoin. Patient had 2 units of transfusion of packed red blood cells. The patient's peripheral smear shows severe microcytic anemia consistent with anemia associated with chronic disease or malignancy. HISTORY OF PRESENT ILLNESS: 66-year-old male with multiple comorbidities including bladder cancer with lung metastases who presented to the emergency room with fever and rigors. The patient was accompanied by his who expressed the fever started a month ago and temperature has been steady. The highest one was roughly 103. The patient has been to both [facility] and [facility] recently and could not find the origin of the fever. The patient was sent home and following oncologist who has started the patient on Keytruda. The patient's first dose was on Monday prior to admission. He stated that his highest fever was around 103 to 104 and he has been using Tylenol and ice to help with the temperature. The oncologist called the patient's prior to admission and expressed that the patient should go to urgent care or emergency room. Therefore, the patient was brought into the emergency room. In addition, the patient was diagnosed with bladder cancer last year due to hematuria and finished a course of chemotherapy last year as well. The patient had a cystectomy and also has ileoconduit. Denies any hematuria currently. Denies any lightheadedness, dizziness or sick contacts. The patient's did notice the patient started having a dry cough about two weeks ago while he was in [place] and according to patient he had a prior CT with bilateral pleural effusions and no infiltrate. HOSPITAL COURSE: On admission, the patient was placed on empiric antibiotic with vancomycin and Zosyn for the possible pneumonia shown on the CT. For the patient's hyponatremia, he initially received 1 liter of normal saline, which also was given due to his lactic acidosis. The next day, the patient's hemoglobin came back to be less than 7. Therefore the patient received 2 units of PRBC throughout the day and at this point the patient's INR appears to be elevated. Therefore, subcutaneous heparin was discontinued and creatinine has worsened, which was initially thought to be prerenal. Therefore, IV fluid was continued and on the following day, the patient's creatinine worsened, and therefore antibiotic was discontinued due to possibly side effect from the medication. Renal workup has been ordered including a renal ultrasound. In addition, urine culture came back showing Pseudomonas which was sensitive to everything except nitrofurantoin. Meropenem was chosen due to it has less toxicity to the liver and kidneys and it was given renally dosed. In addition, the patient's INR has worsened, suspecting liver failure versus DIC and fibrinogen D-Dimer has been ordered and results were pending. At this point, the patient primary care team believes it is best for the patient to receive a higher level of care at [facility]. Therefore, Dr. Levin was contacted who is the patient's oncologist and recommended transferring of the patient to [facility]. On examination, patient appeared to be calm, was sitting up in the chair. Has a regular rate and rhythm. The patient's murmur appears to be the same as before, which was systolic and there were no abnormal lung sounds bilaterally. No abdominal pain. The patient's ileoconduit appears to be producing urine and the stoma appears to be pink and there was no lower extremity edema. DISCHARGE CONDITION: Stable. Transferring to [facility] under the care of Dr. Levin's partner. DISCHARGE MEDICATIONS: Include: - meropenem 500 mg IV every 12 hours - Zofran 4 mg IV every 6 hours as needed - Dulcolax 5 mg by mouth daily as needed - continue ascorbic acid 500 mg by mouth daily - aspirin 325 mg by mouth daily - atorvastatin 40 mg by mouth at bedtime - famotidine 40 mg by mouth daily - ferrous gluconate 324 mg by mouth twice a day - Synthroid 50 mcg by mouth daily - metoprolol 25 mg by mouth twice a day MEDICATIONS ON HOLD: Include: - Tylenol 650 mg by mouth every 6 hours - folic acid 1 mg by mouth daily - multivitamin - Coumadin 8 mg by mouth twice a week - Coumadin 6 mg by mouth five times a week The patient has been discussed with the attending doctor, Dr. Cleaning. My preceptor for this patient encounter was Dr. Zachary Cleaning. The preceptor was physically present in the building during the encounter and was fully available. As needed, all aspects of the patient interview, examination, medical decision making process, and medical care plan development were reviewed and approved by the preceptor. The preceptor is aware and concurs with the plan as stated in the body of this note and will attest to such by his/her cosignature. ADDENDUM: Patient's renal ultrasound came back. Did not show any acute findings; however , it does show a mixed echo, predominantly hypoechoic lesion in the liver, and a portable chest x-ray was done and did not show changes to the previous portable chest x-ray. In addition, patient's D-dimer was greater than 4000. Fibrinogen was 740. Repeat PT was 45.1 and INR 4.49. Patient has been discussed with attending doctor, Dr. Cleaning. My preceptor for this patient encounter was Dr. Zachary Cleaning. The preceptor was physically present in the building during the encounter and was fully available. As needed, all aspects of the patient interview, examination, medical decision making process, and medical care plan development were reviewed and approved by the preceptor. The preceptor is aware and concurs with the plan as stated in the body of this note and will attest to such by his/ her cosignature. Addendum dictated: LIT 09/20/2016 1848 Addendum transcribed: [email or web address] 09/20/20166 Addendum: Patient didn't get transferred and still waiting for bed. 09/22/16 15:42 MTDD
[2016-09-20] MEDS: MEROPENEM INJ 500 MG in D5W MINI-BAG PLUS 100 ML IV SCH ×2 (11:04→21:59)
[2016-09-20] MEDS: PERCOCET 5MG/325MG TAB PO PRN (11:05)
[2016-09-20 12:00] VITALS: BP 114/61
[2016-09-20 12:37] LABS: MEAN CORPUSCULAR HEMOGLOBIN 25.3 pg (27.0-33.0); RED CELL DISTRIBUTION WIDTH 16.7 % (11.5-14.5); WHITE BLOOD COUNT 16.1 K/mm3 (4.0-10.0)
[2016-09-20 12:40] LABS: INR 4.49
[2016-09-20 13:43] LABS: BILIRUBIN,DIRECT 1.4 MG/DL (0.0-0.2)
--- NOTE | 2016-09-20 15:15 | PHACANCOPD ---
PHARMACY VANCOMYCIN DOSING Pt Demographics Demographics Patient Age:66 , Weight:88.600 , Gender: male Adjusted Body Weight Date: 09/20/16, Adjusted Body Weight: [86.8] Kg Events Past 24 Hours Events Past 24 Hours: YES: Change in CrCl Vancomycin Vancomycin indication: BACTEREMIA Vancomycin Target Ranges: 15-20 mcg/ml Vancomycin Load Y/N: No Load Dose Date Time Vancomycin Load Dose: Date: Time: Vancomycin Dose Date: 09/20/16. Current Vancomycin Dose: [1G IV @16] Intermittent Dosing?: Yes Labs Labs Item Value Date Time White Blood Count 13.8 K/mm3 H 09/19/16 2041 White Blood Count 18.3 K/mm3 H 09/20/16 0544 White Blood Count 16.1 K/mm3 H 09/20/16 1220 Creatinine 2.21 MG/DL H 09/19/16 0552 Creatinine 3.18 MG/DL H 09/20/16 0544 C-Reactive Protein, Quantitative 30.90 MG/DL H 09/19/16 0552 C-Reactive Protein, Quantitative 32.50 MG/DL H 09/20/16 0544 Micro Microbiology 09/18/16 Blood Culture - Preliminary, Resulted 09/18/16 Blood Culture - Preliminary, Resulted No Growth after 48 hours. All Specime... 09/19/16 Stool Occult Blood ([facility]) - Final, Complete 09/19/16 Respiratory Virus Panel (PCR) ([facility]) - Final, Complete 09/19/16 MRSA Screen, Received Pending 09/18/16 Urine Culture - Preliminary, Resulted Pseudomonas Aeruginosa Creatinine Clearance Date:09/20/16. Creatinine Clearance: [23.3ML/MIN.]. Assessment and Plan Maintaining Current Dose?: No Reason for dose change: Change in serum Cr Pharmacist Note Pharmacist Note Date: 09/20/16. Pharmacist note: PT is a 66 year old male being treated for bacteremia goal trough 15-20mcg/ml. Vancomycin was recently d/c on 09/19 with last dose being 09/19 morning @ 05:00. Pt was previously being treated with 1g [id number] but has had a steady decrease in renal function to a current 23ml/min creatinine clearance. Dosing will be re initiated with 1g iv @16 09/20. A random is schedule to be collected with AM labs to have maintenance to be determined from there. We will continue to monitor and adjust dose as needed. [facility] Sep 20, 2016 15:15
[2016-09-20] MEDS ORDERED: VANCOMYCIN INTERMITTENT/PULSE DOSING BY CLINICAL PHARMACIST PER DOSING PROTOCOL XX SCH (15:30)
[2016-09-20] MEDS ORDERED: VANCOMYCIN HCL 1,000 MG, VIAL MATE ADAPTER 1 EACH in D5W 250 ML IV ONE (16:00)
[2016-09-20] MEDS ORDERED: ACETAMINOPHEN TAB 650MG DOSE (2X325MG) PO PRN (17:00)
--- NOTE | 2016-09-20 17:05 | REP ---
AP PORTABLE CHEST: 09/20/2016 at 04:11 P.M.: Clinical History: Dyspnea, evaluate for possible CHF. Known lung carcinoma with innumerable cannonball lesions throughout both lungs. Comparison: Portable chest and CT chest 09/18/2016, chest x-ray 01/01/2016. Findings: Lungs are well inflated. There are innumerable lung masses rounded and seen throughout both lungs and all lobes. Appearance very similar to the previous study. I cannot discern new or superimposed vascular congestion, edema or gross effusion on the portable chest. A small pleural effusion was visible on CT in the deep sulcus in the left lower lobe but not radiographically evident on a portable exam. Cardiomediastinal silhouette unchanged. Sternotomy wires again seen. Impression: 1. There are innumerable lung lesions scattered throughout both lungs in all lobes and not much changed from 2 days ago. Signed by Soham Hawkins MD 09/20/2016 05:11 P
--- NOTE | 2016-09-20 18:42 | REP ---
REASON: Acute renal insufficiency. Assess for outlet obstruction. There are no prior renal ultrasound examinations for comparison. The patient has a urostomy in the right lower quadrant. The right kidney measures 12.3 x 5.7 x 5.7 cm. The renal cortical echotexture is within normal limits. Cortical medullary differentiation appears preserved. There are no solid masses. There is no hydronephrosis. Left kidney measures 12.1 x 6.6 x 5.8 cm. The renal cortical echoes are within normal limits. Cortical medullary differentiation is preserved. There are no cystic or solid masses. There is no hydronephrosis. On scanning the right kidney, note was made of a 1.7 x 2.1 x 2 cm sized mixed echo predominately hypoechoic lesion in the liver. This is not definitely identifiable on a noncontrast enhanced CT of the abdomen obtained 09/18/2016 and there is no evidence of an hepatic abnormality seen on a pre and postcontrast enhanced CT of 12/02/2015. The finding is concerning and metastatic disease is suspected. This should be correlated with pre and postcontrast enhanced hepatic CT with dynamic imaging. IMPRESSION: Findings as described above. Signed by Luciano Che DO 09/21/2016 02:21 P
[2016-09-20 19:56] VITALS: BP 126/74
[2016-09-20] MEDS: NS 1,000 ML IV SCH (22:10)
[2016-09-20] MEDS: oxyCODONE 5MG TAB PO PRN (22:29)
--- NOTE | 2016-09-20 23:55 | ECHO ---
DATE OF PROCEDURE: 09/20/2016 REFERRING PHYSICIAN: Dr. Gareth Maynard INDICATION: Heart murmur. HEIGHT: 178 cm WEIGHT: 87 kg 2D MEASUREMENTS: Left atrium: 4.0 cm Ventricular septum: 1.02 cm Posterior wall: 1.13 cm Left ventricle diastole: 5.2 cm Aortic root: 3.5 cm LVOT: 2.4 cm Inferior vena cava: 2.5 cm with normal respiratory variation. Central venous pressure estimated to be 5-10 mmHg. DOPPLER MEASUREMENTS: Aortic valve velocity: 201 cm/s LVOT velocity: 101 cm/s LVOT VTI: 18.4 cm Mild mitral regurgitation. Mitral E velocity: 83.9 cm/s Mitral A velocity: 87.9 cm/s Mitral deceleration time: 229 ms Mild tricuspid regurgitation. Estimated right ventricle systolic pressure: 24-29 mmHg assuming a right atrial pressure of 5-10 mmHg. Pulmonary artery systolic pressure: 14 mmHg by pulmonary acceleration time method. MITRAL ANNULAR TISSUE DOPPLER: E-prime lateral: 7.3 cm/s DESCRIPTION: Rhythm was sinus. Image quality was adequate. This was a 2D, M-mode, color flower Doppler and pulse wave Doppler examination and included mitral annular tissue Doppler. No pericardial effusion. CONCLUSIONS: 1. Moderate aortic valve sclerosis of a 3-cuspid aortic valve. No aortic stenosis or regurgitation. 2. Moderate mitral annular calcification. Mild mitral regurgitation. No mitral stenosis. 3. Normal left ventricle internal dimensions and wall thickness. Normal LV wall motion and wall thickening. Normal LV systolic function. LVEF 60% by visual estimate. 4. Suggestive of grade 1 LV diastolic dysfunction (impaired relaxation filling pattern). 5. Presence of atheroma at the level of the sinotubular junction.
[2016-09-21 00:34] VITALS: BP 134/69
[2016-09-21] MEDS: LEVOTHYROXINE 50MCG TABLET (0.05MG) PO SCH (05:30)
[2016-09-21 05:37] VITALS: BP 129/65
[2016-09-21 05:52] LABS: BASO % 0.2 % (0.0-1.0); EOS # 0.6 K/mm3 (0.0-0.50); EOS % 3.7 % (0.0-3.0); LARGE UNSTAINED CELL # 0.2 K/mm3 (0.0-0.4); LARGE UNSTAINED CELL % 1.3 % (0.0-4.0); LYMPH # 1.2 K/mm3 (1.5-4.5); LYMPH % 6.1 % (24.0-44.0); MEAN CORPUSCULAR HEMOGLOBIN 25.2 pg (27.0-33.0); MEAN CORPUSCULAR HGB CONC 31.7 g/dl (32.0-36.5); MEAN CORPUSCULAR VOLUME 79.4 fl (80.0-96.0); MONO # 0.5 K/mm3 (0.0-0.8); MONO % 3.1 % (0.0-5.0); NEUTROPHILS # 14.4 K/mm3 (1.8-7.7); NEUTROPHILS % 85.8 % (36.0-66.0); PLATELET COUNT, AUTOMATED 450 k/mm3 (150-450); RED CELL DISTRIBUTION WIDTH 16.9 % (11.5-14.5); WHITE BLOOD COUNT 16.8 K/mm3 (4.0-10.0)
[2016-09-21 06:11] LABS: ALBUMIN 1.4 GM/DL (3.2-5.2); ALBUMIN/GLOBULIN RATIO 0.29 (1.00-1.93); BILIRUBIN,TOTAL 1.4 MG/DL (0.2-1.0); CALCIUM LEVEL 9.4 MG/DL (8.8-10.2); CREATININE FOR GFR 4.64 MG/DL (0.70-1.30); GLOMERULAR FILTRATION RATE 13.5 (>49); MAGNESIUM LEVEL 2.8 MG/DL (1.8-2.4); POTASSIUM SERUM 5.2 MEQ/L (3.5-5.1); TOTAL PROTEIN 6.3 GM/DL (6.4-8.2)
[2016-09-21 06:13] LABS: INR 4.74
[2016-09-21 08:00] VITALS: BP 131/73
[2016-09-21] MEDS: METOPROLOL TART 25 MG TABLET PO SCH ×2 (09:15→21:58)
[2016-09-21] MEDS: ASPIRIN 325 MG TAB PO SCH (09:15)
[2016-09-21] MEDS: ASCORBIC ACID 500 MG TAB PO SCH (09:15)
[2016-09-21] MEDS: FOLIC ACID 1 MG TAB PO SCH (09:16)
[2016-09-21] MEDS: oxyCODONE 5MG TAB PO PRN (09:16)
[2016-09-21] MEDS: MULTIVITAMINS/MINERALS THERAP 1 TAB PO SCH (09:16)
[2016-09-21] MEDS: FAMOTIDINE 20 MG TAB PO SCH (09:16)
[2016-09-21] MEDS: MEROPENEM INJ 500 MG in D5W MINI-BAG PLUS 100 ML IV SCH (09:17)
[2016-09-21] MEDS: CEFEPIME HCL 1 GM in D5W MINI-BAG PLUS 50 ML IV SCH (10:53)
[2016-09-21] MEDS: LINEZOLID 600 MG in APPROPRIATE DILUENT 1 EA IV SCH ×2 (11:30→22:13)
[2016-09-21] MEDS: NS 1,000 ML IV SCH ×2 (11:31→21:47)
[2016-09-21 12:00] VITALS: BP 119/67
--- NOTE | 2016-09-21 13:22 | CR ---
DATE OF CONSULTATION: 09/21/2016 REQUESTING PHYSICIAN: Praful Faust MD CONSULTING PHYSICIAN: Myron Khan MD REASON FOR CONSULTATION: Management of acute kidney injury. CHIEF COMPLAINT: Patient presented to the emergency room on 09/19/2016 with fever, chills and rigors. HISTORY OF PRESENT ILLNESS: Mr. Praful Damon is a 66-year-old male who was recently diagnosed with cancer of the bladder. He initially got chemotherapy, then he got a cystectomy and a urostomy in June 2016. Patient was brought to the emergency room by his family because he was having a persistent fever with chills and rigors. Family reports that he was worked up in [place] as well for fever, but they could not find any source of infection and he was labeled as fever of unknown origin and later on he was told that the fevers are because of the cancer. Family reports that the cancer of the bladder has spread to the lungs. He was recently given immunotherapy with Keytruda and as reported by family after receiving immunotherapy one week ago his fevers, chills and rigors got worse. T-max was up to 103 degrees Fahrenheit. Tylenol and ice helped for a little bit, but he had rebound fevers. When the patient was brought here, he was found to have a high lactic acid of 2.7. He had acute kidney injury on arrival. His creatinine was 1.65. The patient was given IV fluids and IV antibiotics; however, his creatinine kept on getting worse. It is up to 4.64 now so the nephrology service was called for further help in the management of this patient with fevers and acute renal failure. PAST MEDICAL HISTORY: Patient has a history of diabetes. History of hypertension in the past. Recently diagnosed to have bladder cancer. History of cystectomy and urostomy. Hypothyroidism. Hypertension. History of deep vein thrombosis (DVT) in the legs and Factor V Leiden deficiency. Recent history of fevers and admission in [place]. PAST SURGICAL HISTORY: Status post cystectomy in June 2016 with ileoconduit formation. Status post appendectomy. History of abdominal hernia repair. History of vasectomy in the past. History of coronary artery bypass grafting which was recently in the last one year. ALLERGIES: No known drug allergies. HOME MEDICATIONS: When the patient arrived to the emergency room, his home medications included Tylenol, vitamin C, aspirin, atorvastatin, Pepcid, folic acid, levothyroxine, metoprolol, multivitamin, Coumadin. FAMILY HISTORY: No significant family history of end stage renal disease requiring hemodialysis. SOCIAL HISTORY: Patient denies any illicit drug abuse, alcohol abuse. He is a former smoker. He quit 2 years ago. REVIEW OF SYSTEMS: CONSTITUTIONAL: Patient reports fever, chills, rigors and weakness. EYES: He denies any blurry vision or double vision. ENT: He denies any dysphagia, odynophagia or ear discharge. CARDIOVASCULAR: He denies any chest pain or palpitations. RESPIRATORY: He denies any shortness of breath. He reports a mild cough. GASTROINTESTINAL (GI): He reports a mild amount of diarrhea. He denies any pain in the abdomen, nausea or vomiting. GENITOURINARY (): He reports history of cystectomy. He has an ileoconduit at this time. MUSCULOSKELETAL: He denies any muscle aches and pains at this time. SKIN: Denies any rashes or ulcers. PSYCH: Denies any depression or anxiety. TRANSIT DEPARTMENT CLERK: He denies history of seizures, TIA, or strokes. All other review of systems is negative. PHYSICAL EXAMINATION: GENERAL: Patient is awake, alert and oriented times three. Laying in bed. No apparent distress. VITAL SIGNS: Temperature is 100 degrees Fahrenheit, blood pressure is 131/73, pulse 115, respiratory rate of 26, saturating 96% on nasal cannula at 2 liters. INTAKE AND OUTPUT: Urine output recorded as 925 mL yesterday, 150 so far today since overnight. HEAD/NECK: Extraocular muscles intact. Pupils equally round and reactive to light. Mucous membranes are slightly dry. Neck is supple. There is no jugular venous distention (JVD). CARDIOVASCULAR: S1, S2, tachycardia. No murmur, rub or gallop. RESPIRATORY: Chest is clear to auscultation bilaterally. No rales or rhonchi. ABDOMEN: Soft. Positive bowel sounds. Nontender. No ascites. No organomegaly. Patient has a right lower quadrant ileoconduit and bag is attached to the catheter at this time and there is light yellow colored urine in the bag. There is no blood in the urine. MUSCULOSKELETAL: Pulses are 2+. No edema of the extremities. TRANSIT DEPARTMENT CLERK: No focal neurological deficit. Power is 5/5 in all extremities. PSYCH: Normal mood and affect. SKIN: No rashes or ulcers. LAB REVIEW: CBC showed a WBC of 16.8, hemoglobin 9.5, platelets of 450. INR is 4.7. BMP showed sodium 132, potassium 5.2, chloride 102, bicarb is 22, BUN 59, creatinine 4.6, GFR is 13.5, magnesium 2.8, calcium is 9.4. Total bilirubin is 1.4, AST of 184, ALT 135, alkaline phosphatase is 757, albumin is 1.4. Microbiology: Urine culture showed Pseudomonas aeruginosa more than 100,000 colonies, Staphylococcus Haemolyticus more than 100,000 and Staphylococcus uberis more than 100,000 colonies. A repeat blood culture is pending. Respiratory viral panel is negative. A renal ultrasound showed the renal cortices were within normal limits. There was no hydronephrosis, cysts or solid masses; however, there was an incidental finding of a 1.27 to 2.2 cm hypoechoic lesion in the liver which was concerning for metastatic disease. CAT scan of the abdomen and pelvis without contrast showed there was urostomy in the right lower quadrant and colonic diverticulosis. There were no other acute findings. CURRENT INPATIENT MEDICATIONS: The patient's medications were all reviewed by me. Given the culture and sensitivity reports, I have stopped the meropenem and vancomycin. I have started the patient on Zyvox 600 mg IV every 12 hours and cefepime 1 gram IV daily. He is on normal saline at 60 mL an hour. Vitamin C was stopped. He is on aspirin 325 mg daily, Lipitor was stopped because of elevated liver function tests. He is on Pepcid 40 mg by mouth daily, folic acid 1 mg daily, levothyroxine 50 mcg daily, metoprolol 25 mg twice a day, multivitamin one tablet daily, Zofran as needed and Roxicodone as needed. ASSESSMENT: 66-year-old male with past medical history of hypertension, recently diagnosed bladder cancer status post cystectomy and urostomy in June 2016. This admission to the hospital with fever and sepsis along with acute renal failure. PLAN: 1. Sepsis. Patient has fever, leukocytosis and positive cultures. Most likely it is the sepsis secondary to UTI, which is polymicrobial. Given the sensitivity report, I will change the antibiotics to Zyvox and cefepime, which are renally dosed at this time. Continue the supportive care at this time. Lactate level has come down. 2. Acute renal failure. It is most likely secondary to urinary tract infection. Ultrasound does not show any evidence of obstruction or hydronephrosis. Continue the IV fluid hydration at this time at 60 mL an hour. No signs of uremia at this time. There is no urgent need of hemodialysis at this time. 3. Hyponatremia. It is most likely secondary to hypovolemia. Continue the IV normal saline. 4. Hyperkalemia. It is secondary to acute renal failure. Potassium is 5.2, which is acceptable at this time. No need of Kayexalate administration at this time. Potassium level is expected to improve with improvement in renal function and urine output. 5. Abnormal liver function tests. It might be secondary to sepsis, but the patient was also found to have a hypoechoic lesion on the ultrasound which might be a sign of metastasis to the liver as well. However, I would continue the antibiotics at this time. The rest of the management is as per primary team. 6. History of deep vein thrombosis (DVT) secondary to Factor V Leiden deficiency. Patient has a supratherapeutic INR. His Coumadin has been stopped at this time. 7. Hypertension. Blood pressure is acceptable at this time. Patient has sepsis as well. Continue the metoprolol at this time with holding parameters. 8. Hyperlipidemia. Patient was on Lipitor, but because of the elevated liver enzymes, Lipitor has been stopped. 9. Anemia. It is okay to continue the iron at this time. However, I have stopped the vitamin C which can cause oxalosis and acute renal failure. Thank you for involving us in the care of this patient. We shall be happy to follow the patient along with you tomorrow morning. Plan of care was discussed with the medical team resident.
--- NOTE | 2016-09-21 17:24 | IPNPDOC ---
Text Note Date of Service The patient was seen on 09/21/16. NOTE Subjective: Patient seen and examined at bedside. Patient didn't get transferred overnight due to no available beds at [facility]. Patient still had fever overnight, however it is improved compared to day before. Patient' family would like to consider to transfer him to any other centers with chemotherapy. Patient was on waiting list for both [facility] and [facility]. However, [facility] later in the day denied the transfer due to patient's elevated liver enzymes and doesn't believe chemo can be started due to that. Denies any chest pain, sob, abdominal pain, nausea, vomiting, diarrhea , constipation, blood in urine or stool. Denies any other current new complaints. Objective: Vitals: (See below) General: Patient is a nervous elderly male, appears to be somewhat somnolent. laying comfortably in bed, AAOx3, not in apparent distress, with head elevated at 30 degrees HEENT : Normal cephalic atraumatic, Extraocular motion intact, pupil equal round and reactive to light, mucosal membrane moist, neck supple, no neck lymphadenopathy Cardio : RRR, Normal S1, S2, No murmur/rubs/gallops Pulm : Clear to auscultations bilaterally, no wheezing, rales, or rhonchi. Abdomen: + bowel sounds, soft, none tender, none distended, no peritoneal signs , no ecchymosis, no masses that were palpable Ext : No edema, clubbing, or cynosis Skin : Warm and dry Neuro : Cranial Nerve 2 through 12 intact, No focal neurological deficit Labs ( See below) Most significantly: WBC 16.8, Hgb 9.5, K 5.2, Cr. 4.6, AST 184 , ALT 135, INR 4.7, Urine Culture shows Psudomonas, Staph Haemolyticus, Strepto Uberis, sensitive to Cefepime and Zyvox. Images/Procedures: No new Assessment and Plan: 66-year-old male with a past medical history of bladder cancer, status post bladder resection and ileal conduit urinary diversion, lung nodules, which is likely cancer and follows with oncology, noninsulin dependent type 2 diabetes, history of deep vein thrombosis (DVT), factor V Leiden on warfarin at home, coronary artery disease status post coronary artery bypass graft (CABG), presented with: 1. Fever and rigor with leukocytosis likely due to Sepsis vs. Cancer. The patient does have a possible left lower lobe infiltrate with a small amount of effusion versus atelectasis suspicious of pneumonia. Patient was on empiric antibotic Vanco/Zosyn initially which was stopped due to worsening renal function and initially lack of source of infection and his history of recent admission to [facility] and [facility] and had persistent fever despite treatment of antibiotics. 09/21/16: Urine Culture shows Psudomonas, Staph Haemolyticus, Strepto Uberis, sensitive to Cefepime and Zyvox. Nephrology, Dr. Khan has started patient on Linezolid 600 mg IV q12H and Cefepime 1g IV daily on 09/21/16 for polymicrobial UTI, which was agreed by Infectious Disease, Dr. Vazquez. Blood culture 02/28 was positive for Gram pos Cocci in clusters from 09/18/16. Dr. Levin, patient's oncologist at [facility] has recommended to transfer patient to [facility], however patient is on waiting list due to no bed, we were told it would take days before bed will be available. [facility] has denied the transfer due to elevated liver enzyme, their rational was they can not start chemo with elevated liver enzymes even it is likely from metastasis. 2. Polymicrobial UTI, possibily catheter related. Patient does have a ileal conduit urinary diversion due to bladder resection after diagnosed with bladder cancer. Please see above. 3. Possible bacteremia. Please see above. 4. KLEBER possibly from UTI. Holding nephrotoxic agents. Dr. Khan from nephrology has been consulted we appreciate his recommendation. Continue IV antibiotics. Will monitor Ins and Outs closely. FeNa shows likely prerenal etiology. Please see plan in number 1. 5. Transaminitis likely liver failure from metastatic cancer. Holding all hepatotoxic agents. Also has elevated INR that is getting worse. AMA was normal. Negative hepatitis panel. Continue to trend. 6. Acute anemia on chronic iron deficiency anemia, likely secondary to chemotherapy, Keytruda, which was given last Monday. Patient received transfusion prior to admission. 2 u PRBC given. H/H stable. Peripheral smear has shown that the patient's anemia was likely secondary to chronic disease versus malignancy. 7. Hyponatremia, likely secondary to syndrome of inappropriate secretion of antidiuretic hormone (SIADH) from cancer versus the patient's medication. Continue IV fluids currently. Will follow nephrology recommendation. 8. Lactic acidosis, which has resolved. 9. History of deep vein thrombosis (DVT) and also a history of factor V Leiden. The patient refused taking warfarin since a few days ago before admission. According to patient, "he just doesn't want to take it." INR continue to elevate. 10. Coronary artery disease, status post coronary artery bypass graft (CABG). Continue to monitor. The patient currently does not take warfarin due to he refused, he was taking it for both CAD and DVT per him. Continue beta debbie with hold parameters. DVT prophylaxis: SCD, no chemical due to INR >2 Fluid, Electrolytes, Nutrition: NS 60ml/hr, elevated K 5.2, regular diet Code: DNR/DNI Disposition: Condition worsening. Patient seems to be nervous still wants everything to be done, likely not ready to discuss about [employer]. Waiting to be transferred, currently on waiting list for [facility]. VS,Fishbone, I+O VS, Fishbone, I+O Laboratory Tests 09/21/16 05:32 Red Blood Count 3.78 L, Mean Corpuscular Volume 79.4 L, Mean Corpuscular Hemoglobin 25.2 L, Mean Corpuscular Hemoglobin Concent 31.7 L, Red Cell Distribution Width 16.9 H, Neutrophils (%) (Auto) 85.8 H, Lymphocytes (%) (Auto ) 6.1 L, Monocytes (%) (Auto) 3.1, Eosinophils (%) (Auto) 3.7 H, Basophils (%) ( Auto) 0.2, Neutrophils # (Auto) 14.4 H, Lymphocytes # (Auto) 1.2 L, Monocytes # (Auto) 0.5, Eosinophils # (Auto) 0.6 H, Basophils # (Auto) 0.0, Calcium Level 9.4, Aspartate Amino Transf (AST/SGOT) 184 H, Alanine Aminotransferase (ALT/SGPT ) 135 H, Alkaline Phosphatase 757 H, Total Bilirubin 1.4 H, Total Protein 6.3 L , Albumin 1.4 L Vital Signs Date Time Temp Pulse Resp B/P (MAP) Pulse Ox O2 Delivery O2 Flow Rate FiO2 09/21/16 16:07 Room Air 09/21/16 12:06 2.0 09/21/16 12:00 98.8 88 24 119/67 (84) 97 I&O- Last 24 Hours up to 6 AM 09/21/16 06:00 Intake Total 1700 ml Output Total 675 ml Balance 1025 ml GME ATTESTATION GME ATTESTATION My preceptor for this patient encounter was physically present in the building during the encounter and was fully available. As needed, all aspects of the patient interview, examination, medical decision making process, and medical care plan development were reviewed and approved by the preceptor. Preceptor is aware and concurs with the plan as stated in the body of this note and will attest to such by his/her cosignature. ATTENDING NOTE Patient discussed with Dr. Cleaning. MELECIO MARIA DO Sep 21, 2016 17:24
--- NOTE | 2016-09-21 19:14 | IPN ---
DATE: 09/20/2016 Patient has been seen and examined at bedside. Patient continues to remain febrile overnight; however, patient denies any chest pain, trouble breathing, any abdominal pains, any diarrhea, constipation; however, patient has been feeling tired. Dr. Levin, patient's oncologist, was contacted and recommended transferring patient to [facility]; however, patient has been placed on a wait list and was told initially that he may be transferred sometime this afternoon. PHYSICAL EXAMINATION: VITAL SIGNS: Temperature 98.8, pulse 88, respirations 94, blood pressure 119/67, oxygen saturation 97% on room air. GENERAL: Patient is a pleasant, however, nervous, elderly male, who was alert, awake, oriented times three. Does not appear to be in distress. Lying comfortably in bed with head elevated at 30 degrees. HEENT: Normocephalic, atraumatic. Extraocular motor intact. Mucosa moist. NECK: Supple. No neck lymphadenopathy. CARDIOVASCULAR: Regular rate and rhythm, S1, S2. No murmurs, rubs, or gallops. LUNGS: Clear to auscultation bilaterally. No wheezes, rales, or rhonchi. ABDOMEN: Positive bowel sounds. Soft, nontender, nondistended. No peritoneal signs. No ecchymosis. EXTREMITIES: No edema, clubbing, or cyanosis. SKIN: Warm and dry. NEUROLOGIC: Cranial nerves II-XII intact. No focal neurologic deficit; however, patient appears to be somewhat somnolent. LABORATORY DATA: WBC 16.1, hemoglobin 8.6, hematocrit 26.7 with a platelet count of 406. Sodium 137, potassium 4.8, chloride 104, bicarbonate 22, bum 42, creatinine 3.18 , GFR 20, fasting glucose 109. Osmolality was 293. Calcium 9.1, magnesium 2.4. Total bilirubin was elevated to 1.8, direct bilirubin elevated to 1.4, AST 161, ALT 112, alkaline phosphatase was 578. BNP 706. Albumin 1.4, which was low. Patient's INR was elevated again this morning, 42.6. This afternoon PT was 41.2, INR was 4.2, and elevated to 4.5. Fibrinogen was also elevated at 740, and D-dimer was greater than 4000. Patient did have a renal ultrasound in the afternoon, which shows no obstructive uropathy was noted. No hydronephrosis; however, a mixed echo, predominantly hypoechoic noted in the liver, possibly metastasis. ASSESSMENT AND PLAN: A 66-year-old male with past medical history of bladder cancer status post bladder resection a few months ago and ileal conduit urinary diversion and also lung nodules, which was likely metastatic cancer. Follows with oncology in [place], Dr. Levin. Also [id number] type 2 diabetes mellitus, history of deep vein thrombosis (DVT) with factor V Leiden, on warfarin at home, coronary artery disease status post coronary artery bypass graft, presented with: 1. Fever and rigor with leukocytosis, possibly sepsis versus cancer. Patient's oncologist has been contacted, and he believes it was likely due to cancer; however, patient does have left lower lobe infiltrate and a small amount of effusion, concerning for pneumonia. A recent urine culture also shows Pseudomonas; however, sensitivity is pending. Patient was switched to meropenem due to acute kidney injury, possibly secondary to urinary tract infection (UTI), and patient's intake and output were monitored closely. Patient's blood culture, one out of two, also shows gram-positive cocci in clusters; therefore, vancomycin was continued. 2. Possible UTI. Continue patient on meropenem. 3. Possible bacteremia. Continue patient on vancomycin. Sensitivity is pending. 4. Acute kidney injury, possibly from UTI versus patient's chemotherapy. Will hold any nephrotoxic agent and continue antibiotics. 5. Transaminitis, possibly from metastatic cancer versus from sepsis. Continue to monitor. MONCHO has been ordered to rule out primary biliary cirrhosis. INR continues to get worse. This afternoon was around 4.4. 6. Acute anemia on chronic iron deficiency anemia, likely secondary to chemotherapy versus sepsis. Patient had 2 units of packed red blood cells (PRBC) . Hemoglobin and hematocrit were stable. Patient's peripheral smear also shows chronic disease versus malignancy. 7. Hyponatremia, likely secondary to syndrome of inappropriate secretion of antidiuretic hormone (SIADH) from cancer versus medication versus hypovolemia. Will continue to monitor. 8. Lactic acidosis, resolved. 9. History of DVT with a history of factor V Leiden. Patient stopped taking warfarin a few days before admission; however, patient's INR has been getting worse without the warfarin, possibly in liver failure due to cancer versus medication. Will continue to monitor. 10. Coronary artery disease, status post CABG. Patient does not take warfarin; however, he was on warfarin for both coronary artery disease and deep vein thrombosis (DVT). Continue beta debbie with hold parameters. 11. DVT prophylaxis with sequential compression devices (SCDs). No chemical prophylaxis due to INR greater than 2. Patient has been continued on normal saline with 60 mL per hour and on regular diet. Patient was full code; however, agrees with DO NOT RESUSCITATE/DO NOT INTUBATE after discussion with Dr. Cleaning. Medical order for life-sustaining treatment (MOLST) form in chart. DISPOSITION: Patient is on waiting list with [facility] to be transferred according to his oncologist's recommendation. Patient has been discussed with attending doctor, Dr. Cleaning. My preceptor for this patient encounter was Dr. Zachary Cleaning. The preceptor was physically present in the building during the encounter and was fully available as needed. All aspects of the patient interview, examination, medical decision making process, and medical care plan development were reviewed and approved by the preceptor. The preceptor is aware and concurs with the plan as stated in the body of this note and will attest to such by his/her co-signature. TETE
--- NOTE | 2016-09-21 19:21 | REP ---
MRI BRAIN WITHOUT CONTRAST: 09/21/2016. Clinical history: Altered mental status. Evaluate for metastatic disease in the brain. Technique. Noncontrast MRI was performed. The patient has GFR of 20, an absolute contraindication for gadolinium contrast with MRI. (GFR < 30). Sagittal T1 with axial T1, T2, FLAIR, gradient echo, diffusion-weighted images and ADC mapping sequences were provided. Findings: There were no prior studies. Lateral ventricles are midline symmetric and dilated and in proportion to the diffuse cerebral atrophy. Third and fourth ventricles are proportion to degree of atrophy as well. The martinez-white junction differentiation is maintained. There is no lacunar infarct in the right basal ganglia. There is extensive periventricular white matter hyperintense T2 and FLAIR signal change but also in the deep central and subcortical white matter of both frontal and anterior parietal lobes. Smaller foci in the temporal lobes noted. I do not see cytotoxic edema pattern that would be characteristic for metastatic disease. This suggests a different origin for these findings. There are also deep central and subcortical hyperintense T2 white matter foci also seen on the FLAIR images, a few these have hypodense areas on T1 sequences in the posterior left frontal region suggesting old lacunar infarct. Diffusion weighted images and ADC mapping sequences do not show restricted water diffusion or pattern to suggest acute ischemia. No diffusion weighted findings that would be suggestive of metastatic disease. Corpus callosum, optic chiasm and pituitary intact. The cortical stripe shows atrophy but no vascular territory infarct, hemorrhage, mass or mass effect. No acute ischemia on the diffusion weighted sequences. Brainstem is intact. Cerebellum grossly intact with the basal cisterns unremarkable. Seventh/eighth cranial nerve complexes as are intact. Deviation of the septum towards the right is seen. Orbits and contents grossly intact. Globes and orbital contents symmetric. Impression: 1. Moderate atrophy with ventriculomegaly in proportion. 2. Old lacunar infarct in the right basal ganglia and the left posterior frontal white matter. 3. White matter tract lesions periventricular, deep central and subcortical region likely gliosis or small vessel ischemic change. No diffusion weighted pattern that would be suggestive of restricted water diffusion and no cytotoxic edema that would suggest metastatic disease. Signed by Soham Hawkins MD 09/21/2016 08:25 P
[2016-09-21 19:39] VITALS: BP 112/66
[2016-09-21 23:59] VITALS: BP 139/80
[2016-09-22 04:43] VITALS: BP 125/66
[2016-09-22 05:43] LABS: BASO % 0.2 % (0.0-1.0); EOS # 0.7 K/mm3 (0.0-0.50); EOS % 4.2 % (0.0-3.0); LARGE UNSTAINED CELL # 0.2 K/mm3 (0.0-0.4); LARGE UNSTAINED CELL % 1.3 % (0.0-4.0); LYMPH # 1.1 K/mm3 (1.5-4.5); LYMPH % 5.4 % (24.0-44.0); MEAN CORPUSCULAR HEMOGLOBIN 24.9 pg (27.0-33.0); MEAN CORPUSCULAR HGB CONC 31.3 g/dl (32.0-36.5); MEAN CORPUSCULAR VOLUME 79.3 fl (80.0-96.0); MONO # 0.6 K/mm3 (0.0-0.8); MONO % 3.5 % (0.0-5.0); NEUTROPHILS # 14.4 K/mm3 (1.8-7.7); NEUTROPHILS % 85.4 % (36.0-66.0); PLATELET COUNT, AUTOMATED 383 k/mm3 (150-450); RED CELL DISTRIBUTION WIDTH 16.9 % (11.5-14.5); WHITE BLOOD COUNT 16.9 K/mm3 (4.0-10.0)
[2016-09-22 06:09] LABS: INR 5.28
[2016-09-22 06:12] LABS: ALBUMIN 1.3 GM/DL (3.2-5.2); ALBUMIN/GLOBULIN RATIO 0.28 (1.00-1.93); BILIRUBIN,TOTAL 1.4 MG/DL (0.2-1.0); CALCIUM LEVEL 9.9 MG/DL (8.8-10.2); CREATININE FOR GFR 6.53 MG/DL (0.70-1.30); GLOMERULAR FILTRATION RATE 9.1 (>49); TOTAL PROTEIN 5.9 GM/DL (6.4-8.2)
[2016-09-22 06:16] LABS: POTASSIUM SERUM 5.2 MEQ/L (3.5-5.1)
[2016-09-22] MEDS: LEVOTHYROXINE 50MCG TABLET (0.05MG) PO SCH (06:38)
[2016-09-22] MEDS: oxyCODONE 5MG TAB PO PRN ×2 (06:47→17:30)
[2016-09-22 08:00] VITALS: BP 117/67
[2016-09-22] MEDS: IPRATROPIUM 0.5MG/ALBUTEROL 2.5MG INH SOL UD 3ML (DUONEB)(J7620) NEB SCH ×2 (08:00→19:55)
[2016-09-22] MEDS ORDERED: SIMETHICONE 80 MG CHEW TAB PO PRN (08:30)
[2016-09-22] MEDS ORDERED: MORPHINE 2 MG/ML 1ML SYRINGE IV PRN (08:45)
[2016-09-22] MEDS ORDERED: MORPHINE 2 MG/ML 1ML SYRINGE IV ONE (10:15)
[2016-09-22] MEDS: ASPIRIN 325 MG TAB PO SCH (10:17)
[2016-09-22] MEDS: CEFEPIME HCL 1 GM in D5W MINI-BAG PLUS 50 ML IV SCH (10:17)
[2016-09-22] MEDS: FOLIC ACID 1 MG TAB PO SCH (10:17)
[2016-09-22] MEDS: METOPROLOL TART 25 MG TABLET PO SCH ×2 (10:18→20:39)
[2016-09-22] MEDS: FAMOTIDINE 20 MG TAB PO SCH (10:19)
[2016-09-22] MEDS: MULTIVITAMINS/MINERALS THERAP 1 TAB PO SCH (10:19)
[2016-09-22 12:00] VITALS: BP 102/70
[2016-09-22] MEDS: IPRATROPIUM 0.5MG/ALBUTEROL 2.5MG INH SOL UD 3ML (DUONEB)(J7620) NEB PRN (12:10)
[2016-09-22] MEDS ORDERED: KETOROLAC 30 MG/ML VIAL (J1885) IV SCH (14:00)
--- NOTE | 2016-09-22 14:07 | REP ---
MRCP EXAM: MRCP exam is accomplished utilizing multiple heavily T2-weighted sequences in the axial and coronal planes with MIP reconstruction images. Gallbladder is contracted. There is no intrahepatic or extrahepatic biliary dilatation. No definite choledocholithiasis is seen. Pancreatic duct is normal in caliber. Note is made of liver nodules. The largest nodule the right lobe measures 3.1 cm in diameter inferiorly. The largest nodule on the left lobe is at about the same level 3.2 cm in diameter. Two smaller left lobe nodules are seen more superiorly. IMPRESSION: No biliary dilatation. No definite choledocholithiasis. Liver nodules are present as discussed above with at least four visualized. Signed by Arian Fischer MD 09/22/2016 05:57 P
[2016-09-22] MEDS: LINEZOLID 600 MG in APPROPRIATE DILUENT 1 EA IV SCH ×2 (14:41→22:13)
[2016-09-22] MEDS: methylPREDNISolone INJ 125 MG/2 ML VIAL (J2930) IV SCH (15:06)
[2016-09-22 16:00] VITALS: BP 106/61
[2016-09-22 16:32] LABS: ALBUMIN 1.4 GM/DL (3.2-5.2); CALCIUM LEVEL 9.4 MG/DL (8.8-10.2); CREATININE FOR GFR 7.4 MG/DL (0.70-1.30); GLOMERULAR FILTRATION RATE 7.9 (>49); PHOSPHORUS LEVEL 7.2 MG/DL (2.5-4.9)
[2016-09-22 16:36] LABS: POTASSIUM SERUM 5.4 MEQ/L (3.5-5.1)
[2016-09-22] MEDS: MORPHINE 2 MG/ML 1ML SYRINGE IV PRN (16:57)
--- NOTE | 2016-09-22 17:09 | IPNPDOC ---
Text Note Date of Service The patient was seen on 09/22/16. NOTE Subjective: Patient seen and examined at bedside. Patient is still waiting to be transferred to [facility], however conversation today with transfer center there is not available bed right now. Patient still had fever overnight, however it is less than before. Patient is less anxious today. Admits to generalized pain. Admits to feeling bloated. Denies nausea, vomiting, diarrhea, constipation, blood in urine or stool. Denies any other current new complaints. Objective: Vitals: (See below) General: Patient is a nervous elderly male, appears to be somewhat somnolent. laying comfortably in bed, AAOx3, not in apparent distress, with head elevated at 30 degrees HEENT : Normal cephalic atraumatic, Extraocular motion intact, pupil equal round and reactive to light, mucosal membrane moist, neck supple, no neck lymphadenopathy Cardio : RRR, Normal S1, S2, No murmur/rubs/gallops Pulm : Slight wheeze mostly upper airway Abdomen: + bowel sounds, soft, none tender, slightly distended, no peritoneal signs, no ecchymosis, no masses that were palpable Ext : No edema, clubbing, or cynosis Skin : Warm and dry Neuro : Cranial Nerve 2 through 12 intact, No focal neurological deficit Labs ( See below) Most significantly: WBC 16.8, Hgb 9.5, K 5.4, Cr. 7.4, AST 123 , ALT 125, INR 5.28, Urine Culture shows Psudomonas, Staph Haemolyticus, Strepto Uberis, sensitive to Cefepime and Zyvox. Images/Procedures: 09/21/16: MRI of brain showed: - old lacunar infarct in the right basal ganglia and left posterior frontal white matter. White matter tract lesions periventricular and deep central and subcortical region likely gliosis or small vessel ischemic change. MRCP showed: No biliary dilatation. No definite choledocholithiasis. Liver nodules right inferior lobe 3.1 cm, left lobe 3.2 cm. Two smaller left lobe nodules. Assessment and Plan: 66-year-old male with a past medical history of bladder cancer, status post bladder resection and ileal conduit urinary diversion, lung nodules, which is likely cancer and follows with oncology, noninsulin dependent type 2 diabetes, history of deep vein thrombosis (DVT), factor V Leiden on warfarin at home, coronary artery disease status post coronary artery bypass graft (CABG), presented with: 1. Fever and rigor with leukocytosis likely due to Sepsis vs. Cancer. The patient does have a possible left lower lobe infiltrate with a small amount of effusion versus atelectasis suspicious of pneumonia. Patient was on empiric antibotic Vanco/Zosyn initially which was stopped due to worsening renal function and initially lack of source of infection and his history of recent admission to [facility] and [facility] [[email or web address] and had persistent fever despite treatment of antibiotics. 09/21/16: Urine Culture shows Psudomonas, Staph Haemolyticus, Strepto Uberis, sensitive to Cefepime and Zyvox. Nephrology was consulted, Dr. Khan has started patient on Linezolid 600 mg IV q12H and Cefepime 1g IV daily on 09/21/16 for polymicrobial UTI, which was agreed by Infectious Disease, Dr. Vazquez who has also been consulted. Patient was seen by Dr. Mitchell, Dr. Khan's partner today, we appreciate his help. Blood culture / was positive for Gram pos Cocci in clusters from 09/18/16. Dr. Levin, patient's oncologist at [facility] [[email or web address]] has recommended to transfer patient to [facility] [[email or web address]], however patient is on waiting list due to no bed since 09/16/16, we were told it would take days before bed will be available. We have consulted our oncologist Dr. Gardner today, we had discussion about possible liver failure caused by Keytruda. I later contacted Dr. Levin and who has agreed this is likely related to Keytruda and patient should be started on high dose steroid. Therefore we started Methylprednisolone 90 mg IV daily and we gave a dose today. 2. Polymicrobial UTI, possibily catheter related. Patient does have a ileal conduit urinary diversion due to bladder resection after diagnosed with bladder cancer. Please see above. 3. Possible bacteremia. Please see above. 4. KLEBER possibly from UTI. Holding nephrotoxic agents. Dr. Khan from nephrology has been consulted we appreciate his recommendation. Continue IV antibiotics. Will monitor Ins and Outs closely. FeNa shows likely prerenal etiology. Please see plan in number 1. 5. Transaminitis likely liver failure from Keytruda less likely metastatic cancer MRCP didn't show duct dilation, however did show a few liver nodules largest 3.2 cm Holding all hepatotoxic agents. Also has elevated INR that is getting worse. AMA was normal. Negative hepatitis panel. Continue to trend. 6. Acute anemia on chronic iron deficiency anemia, likely secondary to chemotherapy, Keytruda, which was given last Monday vs. Sepsis. Patient received transfusion prior to admission. 2 u PRBC given. H/H stable. Peripheral smear has shown that the patient's anemia was likely secondary to chronic disease versus malignancy. 7. Hyponatremia, likely secondary to syndrome of inappropriate secretion of antidiuretic hormone (SIADH) from cancer versus the patient's medication. Continue IV fluids currently. Will follow nephrology recommendation. 8. Lactic acidosis, which has resolved. 9. History of deep vein thrombosis (DVT) and also a history of factor V Leiden. The patient refused taking warfarin since a few days ago before admission. According to patient, "he just doesn't want to take it." INR continue to elevate. 10. Coronary artery disease, status post coronary artery bypass graft (CABG). Continue to monitor. The patient currently does not take warfarin due to he refused, he was taking it for both CAD and DVT per him. Continue beta debbie with hold parameters. DVT prophylaxis: SCD, no chemical due to INR >2 Fluid, Electrolytes, Nutrition: NS 60ml/hr, elevated K 5.2, regular diet Code: DNR/DNI Disposition: Condition worsening. 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 Prognosis is poor , however we are still hopeful that steroid will help the hepatitis. Waiting to be transferred, currently on waiting list for [facility]. VS,Peggy, I+O VS, Peggy, I+O Laboratory Tests 09/22/16 05:30 Calcium Level 9.9, Aspartate Amino Transf (AST/SGOT) 123 H, Alanine Aminotransferase (ALT/SGPT) 125 H, Alkaline Phosphatase 832 H, Total Bilirubin 1.4 H, Total Protein 5.9 L, Albumin 1.3 L 09/22/16 05:31 Red Blood Count 3.86 L, Mean Corpuscular Volume 79.3 L, Mean Corpuscular Hemoglobin 24.9 L, Mean Corpuscular Hemoglobin Concent 31.3 L, Red Cell Distribution Width 16.9 H, Neutrophils (%) (Auto) 85.4 H, Lymphocytes (%) (Auto ) 5.4 L, Monocytes (%) (Auto) 3.5, Eosinophils (%) (Auto) 4.2 H, Basophils (%) ( Auto) 0.2, Neutrophils # (Auto) 14.4 H, Lymphocytes # (Auto) 1.1 L, Monocytes # (Auto) 0.6, Eosinophils # (Auto) 0.7 H, Basophils # (Auto) 0.0 Vital Signs Date Time Temp Pulse Resp B/P (MAP) Pulse Ox O2 Delivery O2 Flow Rate FiO2 09/22/16 10:20 18 09/22/16 10:18 117/65 09/22/16 09:30 Room Air 09/22/16 08:51 98.7 95 93 2.0 I&O- Last 24 Hours up to 6 AM 09/22/16 06:00 Intake Total 1520 ml Output Total 250 ml Balance 1270 ml GME ATTESTATION GME ATTESTATION My preceptor for this patient encounter was physically present in the building during the encounter and was fully available. As needed, all aspects of the patient interview, examination, medical decision making process, and medical care plan development were reviewed and approved by the preceptor. Preceptor is aware and concurs with the plan as stated in the body of this note and will attest to such by his/her cosignature. MELECIO MARIA DO Sep 22, 2016 12:00
[2016-09-22] MEDS: NS 1,000 ML IV SCH (18:41)
[2016-09-22] MEDS ORDERED: SOD POLYSTYRENE SULFONATE SUSP 15 GM/60 ML UD PO ONE (19:00)
[2016-09-22] MEDS ORDERED: SODIUM BICARBONATE 75 MEQ in NS 0.45% 1,000 ML IV SCH (20:00)
[2016-09-22 20:46] VITALS: BP 116/76
[2016-09-22] MEDS ORDERED: PHYTONADIONE 5 MG TAB PO ONE (23:00)
[2016-09-22 23:59] VITALS: BP 98/53
[2016-09-23] MEDS: oxyCODONE 5MG TAB PO PRN (00:55)
--- NOTE | 2016-09-23 04:05 | CR ---
DATE OF CONSULTATION: 09/21/2016 INFECTIOUS DISEASE CONSULTATION: Asked to consult by hospitalist for evaluation of fever in a patient with bladder cancer. HISTORY OF PRESENT ILLNESS: Mr. Damon is a 66-year-old gentleman with a history of recently diagnosed bladder cancer with lung metastasis, status post robotic-assisted cystectomy with ileal conduit done on 06/27/[address] Kay at [facility]. He has had fevers for the past 1 month, which has been worked up extensively at [facility]. He was hospitalized at [facility] from 08/24/2016 to 08/26/2016 with fever, treated with broad-spectrum antibiotics with levofloxacin with persistence of his fever. The patient was discharged home.He was home for a week, was readmitted to [facility] on 09/01/2016 by his oncologist, Dr. Debra Levin, hematology/oncology (telephone number [phone]). He was at [facility] for 1 week. He was seen in consultation by infectious disease, who felt that his fever was mostly related to bladder cancer with metastasis to the lungs. The patient was discharged home with persistent fever. He was told to use Tylenol as needed and ice; however, his temperature continued to be quite elevated and the day of admission, it was so high the patient was having severe rigors and was very weak and, therefore, his brought him to the emergency room. The patient has recently received Keytruda, which is pembrolizumab, 200 mg intravenously (IV), which is supposed to be every 3 weeks. The patient had his first injection on 09/12/2016. Since then, his fevers have persisted. He was lightheaded. He had a dry cough. Chest CT showed a left lower lobe infiltrate, a small effusion. Patient had a mild cough but no shortness of breath. He is not on oxygen. ALLERGIES: No known drug allergies. PAST MEDICAL HISTORY: 1. Bladder cancer with metastasis to the lung status post Keytruda chemotherapy on 09/12/2016, resection with ileal conduit. 2. Diabetes. Was on metformin but currently diet controlled. 3. History of deep venous thrombosis (DVT). 4. Coronary artery disease status post bypass. 5. Hypothyroidism. 6. Hyperlipidemia. 7. Cellulitis of right lower extremity. 8. Chronic kidney disease. His creatinine at baseline is 1.5. PAST SURGICAL HISTORY: 1. Cystectomy, robotic, with ileal conduit 06/27/2016. 2. Appendectomy. 3. Abdominal hernia repair. 4. Vasectomy. 5. Lung biopsy. 6. Coronary artery bypass graft (CABG) April 2016. 7. Colonoscopy, showing diverticulosis in 2013, done by Dr. Aguilar. SOCIAL HISTORY: He drinks occasionally. His last drink was over 3 weeks ago. He smoked at the age of 17 but quit smoking about 2 years ago. He smoked less than a pack a day. He lives with his in [place]. They have one dog. He was a from [place]. FAMILY HISTORY: Father at 69 from pancreatic cancer and alcoholism, mother from renal failure. REVIEW OF SYSTEMS: He had fever, chills, and night sweats. He has no nausea, vomiting, or diarrhea. He has a dry cough with no shortness of breath. No chest pain or palpitation. The patient is somewhat confused. He denies any abdominal pain, but states that whenever he is moved, he seems to be in some pain but does not localize it. MEDICATIONS: - linezolid 600 mg IV every 12 hours - cefepime 1 gram IV daily - Zofran as needed - levothyroxine 50 mcg by mouth daily - multivitamin one tablet daily - famotidine 40 mg by mouth daily - oxycodone 5 mg every 6 hours as needed - metoprolol 25 mg by mouth twice a day Patient received Zosyn 3.375 grams IV every 6 hours, total of six doses, and vancomycin from 09/18/2016 to 09/19/2016. Patient was switched today to cefepime and linezolid, cefepime 1 gram daily and linezolid 600 mg every 12 hours. LABS: White count on admission was 20.2, currently is 16.8. Hemoglobin 9.5, hematocrit 30.1, platelets 450, 86% neutrophils, 6% lymphocytes, 3% monocytes. Sodium 132, potassium 5.2, chloride 102, bicarbonate 22, BUN 59. Creatinine 4.64, which has increased from 1.65 on admission. AST 108, has increased to 184. ALT 112, has increased to 135. Alkaline phosphatase 578, has increased 757. Ammonia 19. CRP 32.5 on admission; it is down to 27.6. BNP 706 and albumin 1.4. Blood cultures: One set has gram-positive cocci in clusters out of two from 09/18/2016. 09/20/2016 two sets are no growth after 24 hours. The one out of two cultures is probably a contaminant. Patient does not have an Infusaport. Urine culture had polymicrobial alexandra, most likely colonization pseudomonas, Staphylococcus haemolyticus, streptococcus, and these are from the ileal conduit. Methicillin-resistant Staphylococcus aureus (MRSA) screen is negative. Respiratory panel is negative. IMAGING STUDY: Brain MRI does not show any evidence of metastasis. There is moderate atrophy with ventriculomegaly, old lacunar infarct in the right basal ganglia and left posterior frontal white matter, and white matter changes periventricular deep central and subcortical, likely gliosis. No edema or other changes to suggest metastatic disease. Chest x-ray done on 09/20/2016 shows multiple lung lesions scattered throughout both lungs and all lobes and not much change from [address] of the abdomen and pelvis showed mildly enlarged lymph node in the left external iliac region and along the left pelvic sidewall, both measuring 1.3 cm, urostomy in the right lower quadrant, colonic diverticulosis, and no acute findings. Chest CT shows multiple bilateral pulmonary nodules, hilar nodules. Largest is 4 cm in diameter in the right upper lobe. Mild consolidative left lower lobe atelectasis or infiltrate. Pleural thickening in the left anterior mediastinum of uncertain significance, could be postsurgical. Patient had CABG. Renal ultrasound kidneys normal in size, left and right kidney, with mixed echodensity, predominantly hypoechoic lesion in the liver that is not seen on CT, but finding is concerning for metastatic disease to the liver with a nodule measuring 1.7 x 2.1 x 2 cm. IMPRESSION: This is a 66-year-old gentleman who is admitted with persistent fevers for the past 1 month. He has a history of bladder cancer metastatic to the lungs and currently probably metastatic to the liver. The patient was admitted with fever, white count of 20,000, elevated C-reactive protein (CRP), liver function tests that have continued to increase, and acute kidney injury on chronic kidney disease. His creatinine has gone from 1.6 to 4.64. The patient received chemotherapy with Keytruda on 09/12/2016 and since then, he has developed also those complications. His urine culture is polymicrobial, and I am not sure if it is the real reason for this event. His chest x-ray shows a possibility of an infiltrate, but the patient does not have significant cough or shortness of breath suggestive of pneumonia either. His oxygen saturation is 97 % on room air, and the patient has not coughed for an hour while I was visiting with his . Lactic acid on admission was 2.7, and followup 4 hours was 1.7 after he received broad-spectrum antibiotic and his fever has improved. The concern previously on previous admission was that the patient had fever related to metastatic disease, not from an infectious disease source and, therefore, I do not expect the patient to defervesce completely during this admission. He is currently on appropriate antibiotics, broad-spectrum. PLAN: Continue with cefepime 1 gram every 24 hours and adjust based on kidney function, linezolid 600 mg IV every 12 hours until results of cultures and susceptibility. The patient has developed acute renal failure which could be related to hypotension versus possibility of side effect of nephritis from Keytruda. Patient has also new finding of possible liver metastasis and abnormal liver function tests. Will need to discuss all those findings with his oncologist. TETE
[2016-09-23 05:34] VITALS: BP 119/69
[2016-09-23] MEDS: IPRATROPIUM 0.5MG/ALBUTEROL 2.5MG INH SOL UD 3ML (DUONEB)(J7620) NEB PRN (05:39)
[2016-09-23] MEDS: LEVOTHYROXINE 50MCG TABLET (0.05MG) PO SCH (05:40)
[2016-09-23 05:42] LABS: BASO % 0.1 % (0.0-1.0); EOS % 0.1 % (0.0-3.0); LARGE UNSTAINED CELL # 0.1 K/mm3 (0.0-0.4); LARGE UNSTAINED CELL % 0.7 % (0.0-4.0); LYMPH # 0.7 K/mm3 (1.5-4.5); LYMPH % 5.5 % (24.0-44.0); MEAN CORPUSCULAR HEMOGLOBIN 24.9 pg (27.0-33.0); MEAN CORPUSCULAR VOLUME 80.3 fl (80.0-96.0); MONO # 0.2 K/mm3 (0.0-0.8); MONO % 1.6 % (0.0-5.0); NEUTROPHILS # 11.3 K/mm3 (1.8-7.7); NEUTROPHILS % 91.9 % (36.0-66.0); PLATELET COUNT, AUTOMATED 433 k/mm3 (150-450); RED CELL DISTRIBUTION WIDTH 16.8 % (11.5-14.5); WHITE BLOOD COUNT 12.3 K/mm3 (4.0-10.0)
[2016-09-23 05:56] LABS: INR 5.29
[2016-09-23 06:30] LABS: ALBUMIN 1.3 GM/DL (3.2-5.2); ALBUMIN/GLOBULIN RATIO 0.33 (1.00-1.93); BILIRUBIN,TOTAL 0.8 MG/DL (0.2-1.0); CALCIUM LEVEL 8.8 MG/DL (8.8-10.2); CREATININE FOR GFR 8.42 MG/DL (0.70-1.30); GLOMERULAR FILTRATION RATE 6.8 (>49); MAGNESIUM LEVEL 3.4 MG/DL (1.8-2.4); TOTAL PROTEIN 5.2 GM/DL (6.4-8.2)
[2016-09-23 06:39] LABS: POTASSIUM SERUM 6.7 MEQ/L (3.5-5.1)
[2016-09-23] MEDS ORDERED: CALCIUM GLUCONATE 1,000 MG in D5W MINI-BAG PLUS 100 ML IV ONE (07:00)
[2016-09-23] MEDS ORDERED: HEPARIN 1,000 UNITS/ML 10ML VIAL (FOR RADIOLOGY& DIALYSIS ONLY) As Ordered ONE (07:45)
[2016-09-23 08:31] VITALS: BP 98/58
[2016-09-23] MEDS: LINEZOLID 600 MG in APPROPRIATE DILUENT 1 EA IV SCH ×2 (11:00→22:22)
--- NOTE | 2016-09-23 11:50 | IPNPDOC ---
Text Note Date of Service The patient was seen on 09/23/16. NOTE Subjective: Patient seen and examined at bedside during dialysis. Patient also had a permanent dialysis catheter placed this morning. Patient is still waiting to be transferred to [facility], however conversation today with transfer center there is not available bed right now. Patient did not have fever overnight. Patient is less anxious today. However, he has been more confused and pulled out IV line last night. Admits to generalized pain. Denies Chest pain , SOB. Denies nausea, vomiting, diarrhea, constipation, blood in urine or stool. Denies any other current new complaints. Objective: Vitals: (See below) General: Patient is a nervous elderly male, appears to be somewhat somnolent. laying comfortably in bed, AAOx3, not in apparent distress, with head elevated at 30 degrees HEENT : Normal cephalic atraumatic, Extraocular motion intact, pupil equal round and reactive to light, mucosal membrane moist, neck supple, no neck lymphadenopathy Cardio : RRR, Normal S1, S2, No murmur/rubs/gallops, right perma-cath in place, dressing was dry, clean, intact Pulm : Clear to auscultation b/l Abdomen: + bowel sounds, soft, none tender, slightly distended, no peritoneal signs, no ecchymosis, no masses that were palpable Ext : No edema, clubbing, or cynosis Skin : Warm and dry Neuro : Cranial Nerve 2 through 12 intact, No focal neurological deficit Labs ( See below) Most significantly: WBC 12.3, Hgb 10.6, K 6.7, Cr. 8.42, AST 58, ALT 105, Alk Phos 819, INR 5.29, Urine Culture shows Psudomonas, Staph Haemolyticus, Strepto Uberis, sensitive to Cefepime and Zyvox. Images/Procedures: 09/23/16: Patient had permanent dialysis catheter placement on the right side. Assessment and Plan: 66-year-old male with a past medical history of bladder cancer, status post bladder resection and ileal conduit urinary diversion, lung nodules, which is likely cancer and follows with oncology, noninsulin dependent type 2 diabetes, history of deep vein thrombosis (DVT), factor V Leiden on warfarin at home, coronary artery disease status post coronary artery bypass graft (CABG), presented with: 1. Fever and rigor with leukocytosis likely due to Sepsis vs. Cancer. The patient does have a possible left lower lobe infiltrate with a small amount of effusion versus atelectasis suspicious of pneumonia. Patient was on empiric antibotic Vanco/Zosyn initially which was stopped due to worsening renal function and initially lack of source of infection and his history of recent admission to [facility] and had persistent fever despite treatment of antibiotics. 09/21/16: Urine Culture shows Psudomonas, Staph Haemolyticus, Strepto Uberis, sensitive to Cefepime and Zyvox. Nephrology was consulted, Dr. Khan has started patient on Linezolid 600 mg IV q12H and Cefepime 1g IV daily on 09/21/16 for polymicrobial UTI, which was agreed by Infectious Disease, Dr. Vazquez who has also been consulted. Patient was seen by Dr. Mitchell, Dr. Khan's partner today, we appreciate his help. Blood culture 02/28 was positive for Gram pos Cocci in clusters from 09/18/16. Dr. Levin, patient's oncologist at [facility] has recommended to transfer patient to [facility], however patient is on waiting list due to no bed since 09/16/16, we were told it would take days before bed will be available. We have consulted our oncologist Dr. Gardner today, we had discussion about possible liver failure caused by Keytruda. I later contacted Dr. Levin and who has agreed this is likely related to Keytruda and patient should be started on high dose steroid. Therefore we started Methylprednisolone 90 mg IV daily and we gave a dose today. 09/23/16: Patient started dialysis due to renal failure with hyperkalemia. 2. Polymicrobial UTI, possibly catheter related. Patient does have a ileal conduit urinary diversion due to bladder resection after diagnosed with bladder cancer. Please see above. 3. Possible bacteremia. Please see above. 4. Acute renal failure possibly from UTI vs. from chemotherapy. Holding nephrotoxic agents. Dr. Khan and Dr. Mitchell from nephrology has been consulted we appreciate his recommendation. Continue IV antibiotics. Will monitor Ins and Outs closely. FeNa shows likely prerenal etiology. Continue Steroid. Please see plan in number 1. 5. Acute hyperkalemia with K of 6.7. S/P Kayexalate on night of 09/22/16, however patient didn't have BM. Started HD 09/23/16. 6. Transaminitis likely liver failure from Keytruda less likely metastatic cancer MRCP didn't show duct dilation, however did show a few liver nodules largest 3.2 cm Holding all hepatotoxic agents. AMA was normal. Negative hepatitis panel. Continue to trend. INR stable today, however he did get Vitamin K and frozen plasma 24 before permacath placement. 7. Acute anemia on chronic iron deficiency anemia, likely secondary to chemotherapy, Keytruda, which was given last Monday vs. Sepsis. Patient received transfusion prior to admission. 2 u PRBC given. H/H stable. Peripheral smear has shown that the patient's anemia was likely secondary to chronic disease versus malignancy. 8. Hyponatremia, likely secondary to syndrome of inappropriate secretion of antidiuretic hormone (SIADH) from cancer versus the patient's medication. Continue IV fluids currently. Will follow nephrology recommendation. 9. Lactic acidosis, which has resolved. 10. History of deep vein thrombosis (DVT) and also a history of factor V Leiden. The patient refused taking warfarin since a few days ago before admission. According to patient, "he just doesn't want to take it." 11. Coronary artery disease, status post coronary artery bypass graft (CABG). Continue to monitor. The patient currently does not take warfarin due to he refused, he was taking it for both CAD and DVT per him. Continue beta debbie with hold parameters. DVT prophylaxis: SCD, no chemical due to INR >2 Fluid, Electrolytes, Nutrition: elevated K 6.7, Full Liquid diet/renal diet Code: DNR/DNI Disposition: Condition worsening. 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 Prognosis is poor , however we are still hopeful that steroid will help the hepatitis. Waiting to be transferred, currently on waiting list for [facility]. VS,Fishbone, I+O VS, Fishbone, I+O Laboratory Tests 09/22/16 15:44 Anion Gap 13 09/23/16 05:16 Red Blood Count 4.25 L, Mean Corpuscular Volume 80.3, Mean Corpuscular Hemoglobin 24.9 L, Mean Corpuscular Hemoglobin Concent 31.0 L, Red Cell Distribution Width 16.8 H, Neutrophils (%) (Auto) 91.9 H, Lymphocytes (%) (Auto ) 5.5 L, Monocytes (%) (Auto) 1.6, Eosinophils (%) (Auto) 0.1, Basophils (%) ( Auto) 0.1, Neutrophils # (Auto) 11.3 H, Lymphocytes # (Auto) 0.7 L, Monocytes # (Auto) 0.2, Eosinophils # (Auto) 0.0, Basophils # (Auto) 0.0, Calcium Level 8.8 , Aspartate Amino Transf (AST/SGOT) 58 H, Alanine Aminotransferase (ALT/SGPT) 105 H, Alkaline Phosphatase 819 H, Total Bilirubin 0.8, Total Protein 5.2 L, Albumin 1.3 L Vital Signs Date Time Temp Pulse Resp B/P (MAP) Pulse Ox O2 Delivery O2 Flow Rate FiO2 09/23/16 08:31 96.9 78 20 98/58 (71) 93 Room Air 09/22/16 08:51 2.0 I&O- Last 24 Hours up to 6 AM 09/23/16 06:00 Intake Total 935 ml Output Total 150 ml Balance 785 ml GME ATTESTATION GME ATTESTATION My preceptor for this patient encounter was physically present in the building during the encounter and was fully available. As needed, all aspects of the patient interview, examination, medical decision making process, and medical care plan development were reviewed and approved by the preceptor. Preceptor is aware and concurs with the plan as stated in the body of this note and will attest to such by his/her cosignature. MELECIO MARIA DO Sep 23, 2016 11:50
[2016-09-23 13:00] VITALS: BP 113/67
[2016-09-23] MEDS: FAMOTIDINE 20 MG TAB PO SCH (13:36)
[2016-09-23] MEDS: ASPIRIN 325 MG TAB PO SCH (13:36)
[2016-09-23] MEDS: MULTIVITAMINS/MINERALS THERAP 1 TAB PO SCH (13:36)
[2016-09-23] MEDS: METOPROLOL TART 25 MG TABLET PO SCH ×2 (13:38→20:18)
[2016-09-23] MEDS: methylPREDNISolone INJ 125 MG/2 ML VIAL (J2930) IV SCH (13:38)
[2016-09-23] MEDS: FOLIC ACID 1 MG TAB PO SCH (13:38)
[2016-09-23] MEDS: IPRATROPIUM 0.5MG/ALBUTEROL 2.5MG INH SOL UD 3ML (DUONEB)(J7620) NEB SCH ×2 (13:48→19:43)
[2016-09-23 16:00] VITALS: BP 107/60
--- NOTE | 2016-09-23 16:20 | CR ---
DATE OF CONSULTATION: 09/22/2016 REASON FOR CONSULTATION: Metastatic bladder cancer, started pembrolizumab (Keytruda) August 2016. HISTORY OF PRESENT ILLNESS: Mr. Damon is a 66-year-old man who has been on treatment for bladder cancer since the fall of 2015. He initially received chemotherapy for bladder cancer. According to the patient, he underwent bladder surgery in June of 2016. Around that time, he was also found to have pulmonary nodules which were suspicious for metastatic disease. A month ago, he started developing fevers and was worked up for fever of unknown origin and no infectious cause was found. He was started on pembrolizumab and was given an infusion of this last week. Subsequent to that, his fevers seemed to have worsen. Eventually, he came to [facility] Emergency Room (ER) for fevers. He is currently admitted for this and is linezolid and cefepime. His fevers seem to have gone down with his maximum temperature (T-max) over the past 24 hours at 100.1 last night. Today, he has been afebrile. Mr. Damon's reports that Mr. Damon has been slightly confused since a month ago. He has been having shortness of breath recently and he is currently receiving nebulization. Mr. Damon reports that his shortness of breath has improved with nebulization. He has had a poor appetite since his admission to the hospital. Mr. Damon a CT of the chest on this admission which showed multiple bilateral pulmonary and hilar nodules, the largest of which was 4 cm in diameter. His blood tests showed worsening renal function. Nephrology has been consulted and dialysis is being planned to start tomorrow. He was also noted to have increased hepatic transaminases. An MRI of the liver showed metastatic liver nodules with no note of intrahepatic or extrahepatic biliary dilatation. PHYSICAL EXAMINATION: On physical examination, Mr. Damon was laying comfortably on the bed. He had slight dyspnea on speaking. HEENT: He had pinkish conjunctivae, anicteric sclerae. No oral mucosal lesions. LUNGS: Fair air entry. CARDIOVASCULAR: S1, S2, regular. ABDOMEN: Soft, nontender. No guarding. He had an ileostomy bag on the right side. EXTREMITIES: Mild bipedal edema. No clubbing and no cyanosis. IMPRESSION AND PLAN: Mr. Damon is a 66-year-old man with metastatic bladder cancer with imaging studies showing lung metastases and liver metastases. He was started on pembrolizumab a week ago. He currently has elevated hepatic transaminases. I discussed that one consideration could be hepatitis from pembrolizumab. The treatment for this would be to withhold pembrolizumab and start steroids. As of this time, Mr. Damon has been started on methylprednisolone. I understand that dialysis is planned for tomorrow but there is a plan for him to be transferred to [facility] by tomorrow. Thank you for this referral.
[2016-09-23] MEDS: diphenhydrAMINE 25 MG CAP PO PRN (16:34)
--- NOTE | 2016-09-23 17:04 | REP ---
IMAGE OF CHEST DURING PLACEMENT OF DIALYSIS CATHETER: Single image is performed during placement of a dialysis catheter. Right subclavian dialysis catheter is seen with the tip in the right atrium. Fluoroscopic dose is 0.1 milligray. Signed by Arian Fischer MD 10/04/2016 08:36 A
[2016-09-23] MEDS: CEFEPIME HCL 1 GM in D5W MINI-BAG PLUS 50 ML IV SCH (17:13)
[2016-09-23 20:00] VITALS: BP 111/62
[2016-09-24] VITALS (7 sets, daily range): BP systolic 104–134; BP diastolic 58–81
[2016-09-24 04:40] LABS: BASO % 0.1 % (0.0-1.0); LARGE UNSTAINED CELL # 0.1 K/mm3 (0.0-0.4); LARGE UNSTAINED CELL % 0.4 % (0.0-4.0); LYMPH # 0.9 K/mm3 (1.5-4.5); LYMPH % 4.2 % (24.0-44.0); MEAN CORPUSCULAR HGB CONC 31.5 g/dl (32.0-36.5); MEAN CORPUSCULAR VOLUME 79.3 fl (80.0-96.0); MONO # 0.4 K/mm3 (0.0-0.8); NEUTROPHILS # 18.3 K/mm3 (1.8-7.7); NEUTROPHILS % 93.3 % (36.0-66.0); PLATELET COUNT, AUTOMATED 501 k/mm3 (150-450); RED CELL DISTRIBUTION WIDTH 17.5 % (11.5-14.5); WHITE BLOOD COUNT 19.6 K/mm3 (4.0-10.0)
[2016-09-24 04:58] LABS: CREATININE FOR GFR 6.35 MG/DL (0.70-1.30); GLOMERULAR FILTRATION RATE 9.4 (>49); POTASSIUM SERUM 4.2 MEQ/L (3.5-5.1)
[2016-09-24 04:59] LABS: ALBUMIN 1.6 GM/DL (3.2-5.2); ALBUMIN/GLOBULIN RATIO 0.36 (1.00-1.93); BILIRUBIN,TOTAL 0.6 MG/DL (0.2-1.0); CALCIUM LEVEL 8.8 MG/DL (8.8-10.2); MAGNESIUM LEVEL 2.8 MG/DL (1.8-2.4); TOTAL PROTEIN 6.1 GM/DL (6.4-8.2)
[2016-09-24] MEDS: LEVOTHYROXINE 50MCG TABLET (0.05MG) PO SCH (05:05)
[2016-09-24 05:12] LABS: INR 1.53
[2016-09-24] MEDS: IPRATROPIUM 0.5MG/ALBUTEROL 2.5MG INH SOL UD 3ML (DUONEB)(J7620) NEB SCH ×2 (07:01→19:43)
[2016-09-24] MEDS: methylPREDNISolone INJ 125 MG/2 ML VIAL (J2930) IV SCH (08:27)
[2016-09-24] MEDS: ASPIRIN 325 MG TAB PO SCH (08:27)
[2016-09-24] MEDS: FAMOTIDINE 20 MG TAB PO SCH (08:27)
[2016-09-24] MEDS: HEPARIN SOD (PORCINE) 5000 UNITS/ML VIAL SQ SCH ×2 (08:27→21:56)
[2016-09-24] MEDS: MULTIVITAMINS/MINERALS THERAP 1 TAB PO SCH (08:27)
[2016-09-24] MEDS: FOLIC ACID 1 MG TAB PO SCH (08:27)
[2016-09-24] MEDS: CEFEPIME HCL 1 GM in D5W MINI-BAG PLUS 50 ML IV SCH (08:27)
[2016-09-24] MEDS: METOPROLOL TART 25 MG TABLET PO SCH ×2 (08:28→21:58)
--- NOTE | 2016-09-24 09:29 | IPN ---
DATE: 09/23/2016 Mr. Damon is seen this morning during hemodialysis. He remains anuric despite intravenous (IV) fluid hydration yesterday and sodium bicarbonate drip. I did discuss with him and his last evening about need for dialysis and they were in agreement. Dr. Jones was consulted and hemodialysis catheter placed early this morning. The patient did have worsening hyperkalemia and one dose of calcium gluconate was given. He also had an INR of 5.29. Two units of fresh frozen plasma were ordered. However, they were not infused prior to his catheter placement. The patient did not have any significant bleeding. In any event, he is still not feeling too good. He has abdominal pain and remains very weak. He denies any dyspnea or chest pain. He has no more fever or chills. PHYSICAL EXAMINATION: Temperature 96.9 degrees Fahrenheit, heart rate 78 per minute and respiratory rate 20 per minute. Blood pressure is now in the 80s over 40s. Earlier his blood pressure was 98/58, however, it was in 80s right at the start of dialysis. He has a new dialysis catheter in right internal jugular vein. His neck veins are only minimally distended, if at all. He has no oral thrush or ulcers. Head is atraumatic. Heart: Sounds are regular. Lungs with slightly diminished breath sounds at bases with poor inspiratory effort. Abdomen remains moderately tender. Bowel sounds are present. Extremities: Have no cyanosis or clubbing. He has trace of leg edema. Neurologically, he is awake but confused and disoriented today. Today's labs show a PT of 51.5 and INR 5.29. Sodium is 134 and potassium 6.7. CO2 20, BUN 100 and creatinine 8.42. AST is down to 58, ALT 105 and alkaline phosphatase 819. Serum ammonia less than 10. PROBLEM #1: Anuric acute renal failure. Patient has developed severe hyperkalemia and most likely has some uremic symptoms as he is somewhat confused. He is being dialyzed today, and we will plan to dialyze him again tomorrow. PROBLEM: #2: Hypotension. Blood pressure remains low and currently he is not on any pressors. We are maintaining his blood pressure with fluid boluses during dialysis. PROBLEM #3: Metabolic acidosis. This will be corrected with hemodialysis and sodium by can bicarbonate drip is being stopped. PROBLEM #4: Hyperkalemia related to acute renal failure and metabolic acidosis. The patient is being dialyzed with 1.0 mEq potassium bath and his electrolytes will be checked again tomorrow morning. His hyperkalemia is expected to improve with hemodialysis. PROBLEM #5: Sepsis and fever. His white cell count is improving and fever has resolved. He remains on antibiotics and blood cultures have been negative so far. His urine culture did grow Pseudomonas, Citrobacter and Staphylococcus. PROBLEM #6: Metastatic bladder cancer, status post radical cystectomy. At present, the patient is not suitable for any chemotherapy due to ongoing problems with hypotension and acute renal failure. He was seen by oncology. His long-term prognosis is guarded.
[2016-09-24] MEDS ORDERED: HEPARIN 1,000 UNITS/ML 10ML VIAL (FOR RADIOLOGY& DIALYSIS ONLY) IV ONE (11:30)
[2016-09-24] MEDS: LINEZOLID 600 MG in APPROPRIATE DILUENT 1 EA IV SCH (13:46)
[2016-09-24] MEDS: diphenhydrAMINE 25 MG CAP PO PRN (14:57)
[2016-09-24] MEDS ORDERED: LORazepam 2 MG/ML VIAL (J2060) IV PRN (15:30)
--- NOTE | 2016-09-24 17:39 | IPNPDOC ---
Text Note Date of Service The patient was seen on 09/24/16. NOTE Patient seen and examined at bedside. Patient was confused again last night and required sitter. He will have dialysis again today. [facility] contacted again and still no bed. Patient appears to be more confused but also more talkative,he appears to be in good mood, still AAOx3. Denies any fever/ chill, chest pain, SOB, abdominal pain, nausea, vomiting, diarrhea, constipation , blood in urine or stool. Denies any other current new complaints. Objective: Vitals: (See below) General: Patient is a pleasant elderly male, no longer looked pale today and much more alert. laying comfortably in bed, AAOx3, not in apparent distress, with head elevated at 30 degrees HEENT : Normal cephalic atraumatic, Extraocular motion intact, pupil equal round and reactive to light, mucosal membrane moist, neck supple, no neck lymphadenopathy Cardio : RRR, 3/6 systolic murmur same as before, right perma-cath in place , dressing was dry, clean, intact Pulm : Clear to auscultation b/l Abdomen: + bowel sounds, soft, none tender, none distended, no peritoneal signs , no ecchymosis, no masses that were palpable Ext : No edema, clubbing, or cynosis Skin : Warm and dry Neuro : Cranial Nerve 2 through 12 intact, No focal neurological deficit Labs ( See below) Most significantly: WBC 19.6, Hgb 9.5, K 4.2, yesterday was 6.7, Cr. 6.35, AST 35, ALT 83, Alk Phos 635, INR 1.53, Blood Culture x 2 was negative for 3 days drawn on 09/20/16 Images/Procedures: None today Assessment and Plan: 66-year-old male with a past medical history of bladder cancer, status post bladder resection and ileal conduit urinary diversion, lung nodules, which is likely cancer and follows with oncology, noninsulin dependent type 2 diabetes, history of deep vein thrombosis (DVT), factor V Leiden on warfarin at home, coronary artery disease status post coronary artery bypass graft (CABG), presented with: 1. Fever and rigor with leukocytosis likely due to Sepsis vs. Cancer. Fever resolved on 09/22/16. The most likely source of his sepsis right now is the polymicrobial UTI due to he has ileal conduit and catheter, less likely source is the possible LLL pneumonia and even less bacteremia. Patient was on empiric antibotic Vanco/Zosyn initially which was stopped due to worsening renal function and initially lack of source of infection and his history of recent admission to [facility] and [facility] and had persistent fever despite treatment of antibiotics. 09/21/16: Urine Culture shows Psudomonas, Staph Haemolyticus, Strepto Uberis, sensitive to Cefepime and Zyvox. Blood culture 1/2 was positive for Gram pos Cocci in clusters from 09/18/16. Nephrology was consulted, Dr. Khan has started patient on Linezolid 600 mg IV q12H and Cefepime 1g IV daily on 09/21/16 for polymicrobial UTI, which was agreed by Infectious Disease, Dr. Vazquez who has also been consulted. Patient was seen by Dr. Mitchell, Dr. Khan's partner today, we appreciate his help. Dr. Levin, patient's oncologist at [facility] has recommended to transfer patient to [facility], however patient is on waiting list due to no bed since 09/16/16, we were told it would take days before bed will be available. 09/23/16: Patient started dialysis due to renal failure with hyperkalemia. We have consulted our oncologist Dr. Gardner on 09/22/16, we had discussion about possible liver failure caused by Keytruda. I later contacted Dr. Levin and who has agreed this is likely related to Keytruda and patient should be started on high dose steroid. Therefore we started Methylprednisolone 90 mg IV daily and we gave a dose today. The steroid seems to have improved patient's liver function significantly, AST/ALT/Alk Phose/INR all improved dramatically. 2. Polymicrobial UTI, possibly catheter related. Patient does have a ileal conduit urinary diversion due to bladder resection after diagnosed with bladder cancer. Continue Antibiotics. Please see above. 3. Possible bacteremia. Please see above. 4. Acute renal failure possibly from UTI vs. from chemotherapy. Holding nephrotoxic agents. Dr. Khan and Dr. Mitchell from nephrology has been consulted we appreciate his recommendation. Continue IV antibiotics. Will monitor Ins and Outs closely. FeNa shows likely prerenal etiology. Continue Steroid. Please see plan in number 1. 5. Acute hyperkalemia with K of 6.7. S/P Kayexalate on night of 09/22/16, however patient didn't have BM. Started HD 09/23/16. 6. Transaminitis likely liver failure from Keytruda less likely metastatic cancer Liver function improved significantly on the 2nd day on steroid. MRCP didn't show duct dilation, however did show a few liver nodules largest 3.2 cm Holding all hepatotoxic agents. AMA was normal. Negative hepatitis panel. Continue to trend. 09/21/16 Patient received Vitamin K and frozen plasma 24 before permacath placement to prepare for dialysis catheter placement. 7. Acute anemia on chronic iron deficiency anemia, likely secondary to chemotherapy, Keytruda, which was given 09/14/16 vs. Sepsis. Patient received transfusion prior to admission as well. 2 u PRBC given. H/H stable. Peripheral smear has shown that the patient's anemia was likely secondary to chronic disease versus malignancy. 8. Hyponatremia, likely secondary to syndrome of inappropriate secretion of antidiuretic hormone (SIADH) from cancer versus the patient's medication. Improving. Continue IV fluids currently. Will follow nephrology recommendation. 9. Lactic acidosis, which has resolved. 10. History of deep vein thrombosis (DVT) and also a history of factor V Leiden. The patient refused taking warfarin since a few days ago before admission. According to patient, "he just doesn't want to take it." Restarting Coumadin 5 mg on 09/24/16 due to INR down to 1.53 from 5.29 due to improved liver function after starting of steroid. 11. Coronary artery disease, status post coronary artery bypass graft (CABG). Continue to monitor. The patient currently does not take warfarin due to he refused, he was taking it for both CAD and DVT per him. Continue beta debbie with hold parameters. DVT prophylaxis: SCD, started Heparin 5000 u sc q 12H today, will DC once INR is >= 2 Fluid, Electrolytes, Nutrition: On dialysis, Regular/renal diet Code: DNR/DNI Disposition: Condition much improved today two days after start of steroid. Patient seems to be happier and calmer. Short term prognosis has improved, however detention prognosis is still poor due to metastatic cancer. Waiting to be transferred, currently on waiting list for [facility]. VS,Peggy, I+O VS, Peggy, I+O Laboratory Tests 09/24/16 04:16 Red Blood Count 3.80 L, Mean Corpuscular Volume 79.3 L, Mean Corpuscular Hemoglobin 25.0 L, Mean Corpuscular Hemoglobin Concent 31.5 L, Red Cell Distribution Width 17.5 H, Neutrophils (%) (Auto) 93.3 H, Lymphocytes (%) (Auto ) 4.2 L, Monocytes (%) (Auto) 2.0, Eosinophils (%) (Auto) 0.0, Basophils (%) ( Auto) 0.1, Neutrophils # (Auto) 18.3 H, Lymphocytes # (Auto) 0.9 L, Monocytes # (Auto) 0.4, Eosinophils # (Auto) 0.0, Basophils # (Auto) 0.0, Calcium Level 8.8 , Aspartate Amino Transf (AST/SGOT) 35, Alanine Aminotransferase (ALT/SGPT) 83 H , Alkaline Phosphatase 635 H, Total Bilirubin 0.6, Total Protein 6.1 L, Albumin 1.6 #L Vital Signs Date Time Temp Pulse Resp B/P (MAP) Pulse Ox O2 Delivery O2 Flow Rate FiO2 09/24/16 13:00 97.8 97 18 123/72 (89) 94 Room Air 09/22/16 08:51 2.0 I&O- Last 24 Hours up to 6 AM 09/24/16 06:00 Intake Total 1440 ml Output Total 150 ml Balance 1290 ml GME ATTESTATION GME ATTESTATION My preceptor for this patient encounter was physically present in the building during the encounter and was fully available. As needed, all aspects of the patient interview, examination, medical decision making process, and medical care plan development were reviewed and approved by the preceptor. Preceptor is aware and concurs with the plan as stated in the body of this note and will attest to such by his/her cosignature. MELECIO MARIA DO Sep 24, 2016 17:39
[2016-09-24] MEDS: WARFARIN SOD 5 MG TAB PO SCH (18:17)
--- NOTE | 2016-09-24 18:22 | IPN ---
DATE: 09/23/2016 SUBJECTIVE: Mr. Damon was seen during dialysis. He has been afebrile for the past 24 hours. He has been confused, though, and he has required dialysis. He has oliguric renal failure. LABORATORY DATA: White count is 12.3, hemoglobin 10.6, hematocrit 34.2, platelets 433. Sodium 134, potassium 6.7, chloride 101, bicarb 20, BUN 100, creatinine 8.4, glucose 204, magnesium 3.4, bilirubin 0.8, AST 58, ALT 105, alkaline phosphatase 819. CRP 17.8 which is down from 33.5. Total protein 5.2, albumin 1.3. MICROBIOLOGY: Blood cultures two sets on 09/20 were negative, 09/18 one out of two sets was positive for gram-positive cocci in clusters. When I called the lab, they could not identify the pathogen, still working on it. Urine culture had four different pathogens, most likely colonization. IMAGING: Chest x-ray 09/20 shows multiple lung lesions throughout both lungs, unchanged. Abdominal MRI done on 09/22 shows no biliary dilatation. No definite choledocholithiasis. Liver nodules are present. The largest nodule in the right lobe measures 3.1 cm, and in the left lobe 3.2 cm. There are other smaller nodules as well. PHYSICAL EXAMINATION: HEART: Normal S1, S2. No murmurs appreciated. LUNGS: Clear to auscultation. No wheezes, rales or rhonchi. ABDOMEN: Soft, nontender. EXTREMITIES: No edema. NEUROLOGIC: The patient is confused. He does not make too much sense when asked questions. IMPRESSION: 1. Sepsis, on cefepime and Zyvox. The patient's fever has markedly improved compared to previous month. Would continue with same antibiotics for now. I am not sure the source of the fever, whether it was a urinary tract infection (UTI), although that was polymicrobial and I think this was colonization, pneumonia versus just fever related to his malignancy. Blood culture one out of two was positive on admission, but the pathogen is not growing and the patient does not have a central line or an [id number] to blame it on the line infection. 2. Bladder cancer metastatic to lung and liver. The patient's oncologist, Dr. Levin was up planning to transfer him to [facility]. 3. Acute renal failure. Patient receiving dialysis. Continue same antibiotics for now. Potential transfer to [place]. I am signing off. Thank you for the consultation. I will not be available for the next two weeks.
[2016-09-24] MEDS: SENNA 8.6 MG TAB (SENOKOT) PO SCH (21:55)
[2016-09-25] VITALS (7 sets, daily range): BP systolic 120–144; BP diastolic 69–86
[2016-09-25] MEDS: LINEZOLID 600 MG in APPROPRIATE DILUENT 1 EA IV SCH ×2 (00:52→11:03)
--- NOTE | 2016-09-25 04:51 | IPN ---
DATE OF SERVICE: 09/24/2016 Mr. Damon is seen this morning on his bedside during hemodialysis. He underwent first hemodialysis yesterday which he tolerated reasonably well. He denies any dyspnea or chest pain at present. He did feel nauseated, but no vomiting. His abdominal pain has improved. He reports that did not sleep well last night and had some nightmares. He seems to be much more communicative today. PHYSICAL EXAMINATION: Temperature 98.2 degrees Fahrenheit, heart rate 100 per minute and respiratory rate 20 per minute. Blood pressure 124/60 mmHg and oxygen saturation 95%. Head is atraumatic. Dialysis catheter in right internal jugular vein is intact. He is edentulous and without any oral thrush or ulcers. Pupils equal and reactive to light. Sclera is anicteric. Heart sounds are somewhat distant, but regular. Lungs have slightly diminished breath sounds at dependent parts. Abdomen is soft and nontender today. Urostomy is draining clear urine. Neurologically, he is awake, better oriented and much better communicative today. Today's labs show WBC count 19.6, hemoglobin 9.5 and hematocrit 30. Platelets are 501. Sodium 134 and potassium 4.2. BUN 71 and creatinine 6.35. Glucose 216, calcium 8.8. AST is down to 35, ALT 83 and alkaline phosphatase 635. C-reactive protein has decreased to 9.68. PROBLEMS: 1. Oliguric acute renal failure possibly superimposed on chronic kidney disease. The patient was dialyzed yesterday and is being dialyzed again today. Our plan is to continue with 3-hour dialysis session today. We will monitor his kidney function over next 24 hours without further dialysis. His acute renal failure is felt to be related to sepsis and possible acute tubular necrosis. We will monitor his urine output and kidney function with daily renal profile. 2. Hyperkalemia. This has corrected with hemodialysis yesterday. We will continue to monitor his electrolytes on daily basis. No intervention is indicated at this point. 3. Sepsis. The patient remains on intravenous (IV) antibiotics including Zosyn and cefepime. Blood cultures are all negative so far. Urine culture did grow multiple organisms. All repeat blood cultures are negative so far. 4. Hypotension. Blood pressure is still somewhat soft during dialysis, though it was better earlier prior to dialysis treatment. He is not on any antihypertensive medications. We are not removing any fluid today. 5. Metastatic bladder cancer, status post radical cystectomy. The patient has been seen by oncology. At present, he is not suitable for chemotherapy due to ongoing sepsis and acute renal failure. Once his condition improves then further intervention could be performed.
[2016-09-25] MEDS: LEVOTHYROXINE 50MCG TABLET (0.05MG) PO SCH (06:24)
[2016-09-25] MEDS: IPRATROPIUM 0.5MG/ALBUTEROL 2.5MG INH SOL UD 3ML (DUONEB)(J7620) NEB SCH ×2 (07:39→20:35)
[2016-09-25 07:55] LABS: BASO # 0.1 K/mm3 (0.0-0.2); BASO % 0.4 % (0.0-1.0); EOS # 0.2 K/mm3 (0.0-0.50); EOS % 0.8 % (0.0-3.0); LARGE UNSTAINED CELL # 0.2 K/mm3 (0.0-0.4); LARGE UNSTAINED CELL % 0.8 % (0.0-4.0); LYMPH # 0.9 K/mm3 (1.5-4.5); LYMPH % 3.2 % (24.0-44.0); MEAN CORPUSCULAR HGB CONC 31.7 g/dl (32.0-36.5); MONO # 0.7 K/mm3 (0.0-0.8); MONO % 3.2 % (0.0-5.0); NEUTROPHILS # 20.6 K/mm3 (1.8-7.7); NEUTROPHILS % 91.6 % (36.0-66.0); PLATELET COUNT, AUTOMATED 448 k/mm3 (150-450); RED CELL DISTRIBUTION WIDTH 17.5 % (11.5-14.5); WHITE BLOOD COUNT 22.5 K/mm3 (4.0-10.0)
[2016-09-25 08:00] LABS: INR 1.54
[2016-09-25 08:19] LABS: ALBUMIN 1.7 GM/DL (3.2-5.2); ALBUMIN/GLOBULIN RATIO 0.39 (1.00-1.93); BILIRUBIN,TOTAL 0.7 MG/DL (0.2-1.0); CALCIUM LEVEL 8.9 MG/DL (8.8-10.2); CREATININE FOR GFR 5.49 MG/DL (0.70-1.30); GLOMERULAR FILTRATION RATE 11.1 (>49); POTASSIUM SERUM 4.3 MEQ/L (3.5-5.1); TOTAL PROTEIN 6.1 GM/DL (6.4-8.2)
[2016-09-25] MEDS: methylPREDNISolone INJ 125 MG/2 ML VIAL (J2930) IV SCH (09:51)
[2016-09-25] MEDS: ASPIRIN 325 MG TAB PO SCH (09:51)
[2016-09-25] MEDS: HEPARIN SOD (PORCINE) 5000 UNITS/ML VIAL SQ SCH ×2 (09:51→22:38)
[2016-09-25] MEDS: CEFEPIME HCL 1 GM in D5W MINI-BAG PLUS 50 ML IV SCH (09:51)
[2016-09-25] MEDS: FOLIC ACID 1 MG TAB PO SCH (09:52)
[2016-09-25] MEDS: SENNA 8.6 MG TAB (SENOKOT) PO SCH ×2 (09:52→22:37)
[2016-09-25] MEDS: MULTIVITAMINS/MINERALS THERAP 1 TAB PO SCH (09:52)
[2016-09-25] MEDS: METOPROLOL TART 25 MG TABLET PO SCH ×2 (09:52→22:38)
[2016-09-25] MEDS: FAMOTIDINE 20 MG TAB PO SCH (09:52)
--- NOTE | 2016-09-25 11:09 | IPNPDOC ---
Text Note Date of Service The patient was seen on 09/25/16. NOTE Text Note Date of Service The patient was seen on 09/25/16. NOTE Patient seen and examined at bedside. Patient continues to feel better. In good spirits today with no medical complaints. Objective: Vitals: (See below) General: Pleasant elderly male. In good spirits, very talkative today. Appears to be at baseline mentation. Lying comfortably in bed, AAOx3. NAD. HEENT : NC/AT, edentulous. PERRLA, EOMI, MMM Cardio : RRR, 3/6 systolic murmur, right perma-cath in place, area is C/D/I Pulm : CTA B/L Abdomen: soft, NT, +BS, urostomy in place, draining clear urine Ext : No edema, clubbing, or cynosis Skin : Warm and dry Neuro : No gross focal neurological deficit Labs ( See below). Assessment and Plan: 66-year-old male with a past medical history of bladder cancer, status post bladder resection and ileal conduit urinary diversion, lung nodules, which is likely cancer and follows with oncology, noninsulin dependent type 2 diabetes, history of deep vein thrombosis (DVT), factor V Leiden on warfarin at home, coronary artery disease status post coronary artery bypass graft (CABG), presented with: 1. Fever and rigor with leukocytosis likely due to Sepsis vs. Cancer. - fever resolved on 09/22/16 - etiology not clear - sepsis (UTI +/- PNA) vs malignancy related. - +UTI questionable - polymicrobial - possibly colonization given his ilial conduit/urostomy - ID c/s appreciated - continue with cefepime and linezolid for now - will likely de-escalate in 24- 48 hours - patient has completed several courses of antimicrobial therapy in the recent past due to fevers and suspected infection 2. Possible bacteremia. - / +BCx, non-identifiable organism 3. Acute renal failure - was oliguric - urinary output improving - likely superimposed on CKD - UTI +/- ATN - has had HD x 2 - will continue to monitor renal function off HD - holding nephrotoxic agents. - appreciate nephrology consultation - continue IV antibiotics. - FeNa shows likely prerenal etiology. - continue Steroid. 4. Hyperkalemia - resolved - s/p HD 5. Transaminitis - likely liver failure from Keytruda less likely metastatic cancer - essentially resolved - continue with steroid therapy - d/w patient's oncologist Dr. Levin in [place] and in-house oncology - assistance appreciated - MRCP didn't show duct dilation, however did show a few liver nodules largest 3.2 cm - Holding all hepatotoxic agents. - AMA was normal. - Negative hepatitis panel. 6. Metastatic bladder cancer, s/p radical cystectomy - s/p chemo with complications as per above - oncology c/s appreciated 6. Acute/chronic anemia - iron deficiency complicated with chemotherapy, Keytruda, which was given vs. Sepsis. - Patient received transfusion prior to admission - s/p 2 u PRBC - H/H stable. - Peripheral smear = likely secondary to chronic disease versus malignancy. 7. Hyponatremia - resolved 8. Lactic acidosis - resolved. 9. History of DVT complicated with factor V Leiden. - patient refused taking warfarin since a few days ago before admission. According to patient, "he just doesn't want to take it." - Restarted Coumadin 5 mg on 09/24/16 due to INR down to 1.53 from 5.29 10. CAD s/p CABG - continue beta debbie with hold parameters. DVT prophylaxis: SCD, started Heparin 5000 u sc q 12H today, will DC once INR is >= 2 Code: DNR/DNI Disposition: Condition much improved. Anticipating discharge in 48-72 hours. Family requesting transfer of care to local oncologist. Still pending bed availability at [facility] since 09/20/16. Short term prognosis has greatly improved, however assisted prognosis is still poor due to metastatic cancer. VS,Fishbone, I+O VS, Fishbone, I+O Laboratory Tests 09/25/16 07:42 Red Blood Count 3.64 L, Mean Corpuscular Volume 79.0 L, Mean Corpuscular Hemoglobin 25.0 L, Mean Corpuscular Hemoglobin Concent 31.7 L, Red Cell Distribution Width 17.5 H, Neutrophils (%) (Auto) 91.6 H, Lymphocytes (%) (Auto ) 3.2 L, Monocytes (%) (Auto) 3.2, Eosinophils (%) (Auto) 0.8, Basophils (%) ( Auto) 0.4, Neutrophils # (Auto) 20.6 H, Lymphocytes # (Auto) 0.9 L, Monocytes # (Auto) 0.7, Eosinophils # (Auto) 0.2, Basophils # (Auto) 0.1, Calcium Level 8.9 , Aspartate Amino Transf (AST/SGOT) 33, Alanine Aminotransferase (ALT/SGPT) 73, Alkaline Phosphatase 497 H, Total Bilirubin 0.7, Total Protein 6.1 L, Albumin 1.7 L Vital Signs Date Time Temp Pulse Resp B/P (MAP) Pulse Ox O2 Delivery O2 Flow Rate FiO2 09/25/16 09:52 107 127/74 09/25/16 08:00 97.9 18 93 Room Air 09/25/16 04:00 2.0 I&O- Last 24 Hours up to 6 AM 09/25/16 06:00 Intake Total 840.125 ml Output Total 0 ml Balance 840.125 ml ALLIE FOSS MD Sep 25, 2016 11:09
[2016-09-25] MEDS: oxyCODONE 5MG TAB PO PRN ×2 (11:11→19:50)
[2016-09-25] MEDS: diphenhydrAMINE 25 MG CAP PO PRN (15:17)
[2016-09-25] MEDS: WARFARIN SOD 5 MG TAB PO SCH (16:50)
--- NOTE | 2016-09-25 19:44 | IPN ---
DATE: 09/25/2016 SUBJECTIVE: Mr. Damon is seen this morning on his bedside. His family is present in the room. The patient remains confused and disoriented. He could not tell me the day or month correctly. He is also confused about his situation and not oriented to place at all. He has no fever or chills anymore and there is no nausea or vomiting reported. PHYSICAL EXAMINATION: Temperature 97.9 degrees Fahrenheit, heart rate 107 per minute and respiratory rate 20 per minute. Blood pressure 127/74 mmHg and oxygen saturation 93% on room air. Head is atraumatic. He is edentulous and without any thrush or ulcers. Neck is supple and a right internal jugular vein hemodialysis catheter is intact. Heart sounds are tachycardiac and irregular in rhythm. Lungs with moderate bilateral air entry and no wheezing. Abdomen is soft, somewhat protuberant but nontender. Urostomy is draining urine. Extremities have no cyanosis or clubbing. Neurologically he is awake, confused and disoriented. LABORATORY DATA: Today's labs show WBC count 22.5, hemoglobin 9.1 and hematocrit 28.8. Platelets 448. Sodium 141 and potassium 4.3. BUN 62 and creatinine 5.49. PROBLEMS: 1. Oliguric acute renal failure. No recovery of kidney function so far. He has been dialysis dependent. We dialyzed him yesterday and plan to dialyze him again today. He does have significant improvement in his BUN and creatinine. Electrolytes are all within normal range. 2. Anemia. His anemia is slightly worse. At present there is no need for transfusion. We will give him Aranesp with his next hemodialysis and also check his iron studies tomorrow morning. 3. Metastatic bladder cancer, status post radical cystectomy. The patient has been seen by oncology. At present there is no plan for chemotherapy. 4. Sepsis. The patient remains on cefepime 1 gram daily. Zosyn is being stopped today. He has been afebrile so his leukocytosis is gradually worsening.
[2016-09-25] MEDS: LINEZOLID 600MG TABLET (ZYVOX) PO SCH (22:38)
[2016-09-26] MEDS: MORPHINE 2 MG/ML 1ML SYRINGE IV PRN (00:56)
[2016-09-26] MEDS ORDERED: SLF 3 ML SYR IV PRN (04:00)
[2016-09-26 04:51] VITALS: BP 149/75
[2016-09-26 04:54] LABS: BASO % 0.1 % (0.0-1.0); EOS % 0.1 % (0.0-3.0); LARGE UNSTAINED CELL # 0.2 K/mm3 (0.0-0.4); LARGE UNSTAINED CELL % 0.6 % (0.0-4.0); LYMPH % 3.6 % (24.0-44.0); MEAN CORPUSCULAR HEMOGLOBIN 24.7 pg (27.0-33.0); MEAN CORPUSCULAR HGB CONC 30.8 g/dl (32.0-36.5); MEAN CORPUSCULAR VOLUME 80.3 fl (80.0-96.0); MONO # 1.1 K/mm3 (0.0-0.8); MONO % 4.9 % (0.0-5.0); NEUTROPHILS % 90.7 % (36.0-66.0); PLATELET COUNT, AUTOMATED 504 k/mm3 (150-450); WHITE BLOOD COUNT 23.2 K/mm3 (4.0-10.0)
[2016-09-26 05:02] LABS: INR 1.8
[2016-09-26 05:17] LABS: ALBUMIN/GLOBULIN RATIO 0.43 (1.00-1.93); BILIRUBIN,TOTAL 0.6 MG/DL (0.2-1.0); CREATININE FOR GFR 6.98 MG/DL (0.70-1.30); GLOMERULAR FILTRATION RATE 8.4 (>49); MAGNESIUM LEVEL 2.9 MG/DL (1.8-2.4); POTASSIUM SERUM 4.9 MEQ/L (3.5-5.1); TOTAL PROTEIN 6.6 GM/DL (6.4-8.2)
[2016-09-26] MEDS: LEVOTHYROXINE 50MCG TABLET (0.05MG) PO SCH (06:00)
[2016-09-26] MEDS: SLF 3 ML SYR IV SCH ×3 (06:00→20:33)
[2016-09-26] MEDS: CEFEPIME HCL 1 GM in D5W MINI-BAG PLUS 50 ML IV SCH (06:58)
[2016-09-26] MEDS: SENNA 8.6 MG TAB (SENOKOT) PO SCH ×2 (06:59→20:20)
[2016-09-26] MEDS: methylPREDNISolone INJ 125 MG/2 ML VIAL (J2930) IV SCH (06:59)
[2016-09-26] MEDS: FAMOTIDINE 20 MG TAB PO SCH (07:00)
[2016-09-26] MEDS: LINEZOLID 600MG TABLET (ZYVOX) PO SCH (07:00)
[2016-09-26] MEDS: MULTIVITAMINS/MINERALS THERAP 1 TAB PO SCH (07:00)
[2016-09-26] MEDS: ASPIRIN 325 MG TAB PO SCH (07:00)
[2016-09-26] MEDS: FOLIC ACID 1 MG TAB PO SCH (07:01)
[2016-09-26] MEDS: METOPROLOL TART 25 MG TABLET PO SCH ×2 (07:01→20:32)
[2016-09-26] MEDS: HEPARIN SOD (PORCINE) 5000 UNITS/ML VIAL SQ SCH ×2 (07:02→20:20)
[2016-09-26] MEDS: IPRATROPIUM 0.5MG/ALBUTEROL 2.5MG INH SOL UD 3ML (DUONEB)(J7620) NEB SCH ×2 (07:24→19:53)
[2016-09-26 08:00] VITALS: BP 154/87
[2016-09-26] MEDS ORDERED: NYSTATIN 100,000 UNITS/GM TOPICAL PWD 15 GM TOP PRN (09:45)
--- NOTE | 2016-09-26 10:53 | IPNPDOC ---
Text Note Date of Service The patient was seen on 09/26/16. NOTE Patient seen and examined at bedside. Feeling well. Denies any chill, chest pain , sob, abdominal pain, nausea, vomiting, diarrhea, constipation, blood in urine or stool. Denies any other current new complaints. Objective: Vitals: (See below) General: Pleasant elderly male. Appears to be sleepy. Appears to be at baseline mentation. Lying comfortably in bed, AAOx3. NAD. HEENT : NC/AT, edentulous. PERRLA, EOMI, MMM Cardio : RRR, 3/6 systolic murmur, right perma-cath in place, area is C/D/I Pulm : CTA B/L Abdomen: soft, NT, +BS, ileal conduit in place, draining clear urine Ext : No edema, clubbing, or cynosis Skin : Warm and dry Neuro : No gross focal neurological deficit Labs ( See below). Assessment and Plan: 66-year-old male with a past medical history of bladder cancer, status post bladder resection and ileal conduit urinary diversion, lung nodules, which is likely cancer and follows with oncology, noninsulin dependent type 2 diabetes, history of deep vein thrombosis (DVT), factor V Leiden on warfarin at home, coronary artery disease status post coronary artery bypass graft (CABG), presented with: 1. Fever and rigor with leukocytosis likely due to Sepsis vs. Cancer. - fever resolved on 09/22/16 - etiology not clear - sepsis (UTI +/- PNA) vs malignancy related. - +UTI questionable - polymicrobial - possibly colonization given his ilial conduit/urostomy - ID c/s appreciated - Hemo/Onc c/s appreciated - DC'd cefepime and Zyvox yesterday 09/26/16 - patient has completed several courses of antimicrobial therapy in the recent past due to fevers and suspected infection 2. Possible bacteremia. - 03/02 +BCx, non-identifiable organism 3. Acute renal failure - was oliguric - urinary output improving - likely superimposed on CKD - UTI +/- ATN - has had HDs - will continue to monitor renal function off HD - holding nephrotoxic agents. - appreciate nephrology consultation - continue IV antibiotics. - FeNa shows likely prerenal etiology. - continue Steroid. 4. Hyperkalemia - resolved - s/p HD 5. Transaminitis - likely liver failure from Keytruda less likely metastatic cancer - essentially resolved - continue with steroid therapy - d/w patient's oncologist Dr. Levin in [place] and in-house oncology Dr. Gardner - assistance appreciated - Switching patient to Prednisone 90 mg daily on 09/27/16, plan to keep on that dose for a week then start taper per Dr. Gardner - MRCP didn't show duct dilation, however did show a few liver nodules largest 3.2 cm - Holding all hepatotoxic agents. - AMA was normal. - Negative hepatitis panel. 6. Confusion and night time wakefulness - Likely from high dose steroid - Switching to PO steroid and start tapering in a week from 09/27/16 7. Metastatic bladder cancer, s/p radical cystectomy - s/p chemo with complications as per above - oncology c/s appreciated 8. Acute/chronic anemia - iron deficiency complicated with chemotherapy, Keytruda, which was given vs. Sepsis. - Patient received transfusion prior to admission - s/p 2 u PRBC - H/H stable. - Peripheral smear = likely secondary to chronic disease versus malignancy. 9. Hyponatremia - resolved 10. Lactic acidosis - resolved. 11. History of DVT complicated with factor V Leiden. - patient refused taking warfarin since a few days ago before admission. According to patient, "he just doesn't want to take it." - Restarted Coumadin 5 mg on 09/24/16 due to INR down to 1.53 from 5.29 12. CAD s/p CABG - continue beta debbie with hold parameters. DVT prophylaxis: SCD, theraputic warfarin Code: DNR/DNI Disposition: Condition much improved. Anticipating discharge in 48-72 hours. Family requesting transfer of care to local oncologist, Dr. Gardner has agreed. Patient's family no longer wants the transfer. Short term prognosis has greatly improved, however assisted prognosis is still poor due to metastatic cancer. VS,Fishbone, I+O VS, Fishbone, I+O Laboratory Tests 09/26/16 04:05 Red Blood Count 3.78 L, Mean Corpuscular Volume 80.3, Mean Corpuscular Hemoglobin 24.7 L, Mean Corpuscular Hemoglobin Concent 30.8 L, Red Cell Distribution Width 18.0 H, Neutrophils (%) (Auto) 90.7 H, Lymphocytes (%) (Auto ) 3.6 L, Monocytes (%) (Auto) 4.9, Eosinophils (%) (Auto) 0.1, Basophils (%) ( Auto) 0.1, Neutrophils # (Auto) 21.0 H, Lymphocytes # (Auto) 1.0 L, Monocytes # (Auto) 1.1 H, Eosinophils # (Auto) 0.0, Basophils # (Auto) 0.0, Calcium Level 9.0, Aspartate Amino Transf (AST/SGOT) 37, Alanine Aminotransferase (ALT/SGPT) 79 H, Alkaline Phosphatase 449 H, Total Bilirubin 0.6, Total Protein 6.6, Albumin 2.0 L Vital Signs Date Time Temp Pulse Resp B/P (MAP) Pulse Ox O2 Delivery O2 Flow Rate FiO2 09/26/16 08:30 Room Air 09/26/16 08:00 97.2 106 18 154/87 (109) 94 09/25/16 04:00 2.0 I&O- Last 24 Hours up to 6 AM 09/26/16 06:00 Intake Total 770 ml Output Total 125 ml Balance 645 ml GME ATTESTATION GME ATTESTATION My preceptor for this patient encounter was physically present in the building during the encounter and was fully available. As needed, all aspects of the patient interview, examination, medical decision making process, and medical care plan development were reviewed and approved by the preceptor. Preceptor is aware and concurs with the plan as stated in the body of this note and will attest to such by his/her cosignature. GME ATTESTATION GME ATTESTATION My preceptor for this patient encounter was physically present in the building during the encounter and was fully available. As needed, all aspects of the patient interview, examination, medical decision making process, and medical care plan development were reviewed and approved by the preceptor. Preceptor is aware and concurs with the plan as stated in the body of this note and will attest to such by his/her cosignature. ATTENDING NOTE I, Lashawn Saba, have both independently examined this patient as well as reviewed the documentation. I have discussed in detail with the resident the findings and plan of treatment as documented in the residents documentation. I will continue to follow the patient and offer further guidance to the patients care as necessary during this hospital stay. MELECIO MARIA DO Sep 26, 2016 10:53 LASHAWN SABA MD Oct 01, 2016 17:29
[2016-09-26] MEDS ORDERED: HEPARIN 1,000 UNITS/ML 10ML VIAL (FOR RADIOLOGY& DIALYSIS ONLY) IV ONE (11:00)
[2016-09-26] MEDS ORDERED: DARBEPOETIN 100 MCG/0.5 ML *DIALYSIS* SYRINGE (J0882) IV SCH (11:00)
[2016-09-26 13:13] VITALS: BP 132/71
[2016-09-26 16:00] VITALS: BP 134/76
[2016-09-26] MEDS: WARFARIN SOD 5 MG TAB PO SCH (16:32)
[2016-09-26] MEDS ORDERED: ONDANSETRON 4 MG TAB (S0181) PO PRN (18:15)
[2016-09-26 20:00] VITALS: BP 127/62
[2016-09-26] MEDS: oxyCODONE 5MG TAB PO PRN (22:55)
[2016-09-27] VITALS: BP 128/62
[2016-09-27] MEDS ORDERED: CEFEPIME HCL 1 GM in D5W MINI-BAG PLUS 50 ML IV ONE (01:00)
--- NOTE | 2016-09-27 01:04 | IPNPDOC ---
Text Note Date of Service The patient was seen on 09/27/16. NOTE Event Note: I was called by Nurse Dutch at ~11:40 PM who told me that Mr. Damon was in sinus tachycardia with HR in the 130s-150s. Earlier, on the shift, the patient' s HR was ranging between 103-115. His BP between 11 PM to 12 AM was reported to be 170/100, RR 28-36, and O2 saturation was 90-92% on room air. Patient was given one dose of oxycodone 5 mg earlier for pain. However, BP is still elevated. Patient was reported to be confused as well. Dr. Puente and I went to see the patient, who was in fact, tachypneic, febrile, and confused. Lungs were clear to auscultation bilaterally. Heart sound were distant and tachycardic on auscultation. We decided to order an EKG, CXR, ABG, lactic acid, CBC with differential, CMP, blood cx, 02 therapy via nasal cannula, and 1 dose of 1 g cefepime. We will continue to follow this patient and follow lab results when available. Patient may need to have central line placed for administration of medications and fluids. VS,Fishbone, I+O VS, Fishbone, I+O Laboratory Tests 09/26/16 04:05 Red Blood Count 3.78 L, Mean Corpuscular Volume 80.3, Mean Corpuscular Hemoglobin 24.7 L, Mean Corpuscular Hemoglobin Concent 30.8 L, Red Cell Distribution Width 18.0 H, Neutrophils (%) (Auto) 90.7 H, Lymphocytes (%) (Auto ) 3.6 L, Monocytes (%) (Auto) 4.9, Eosinophils (%) (Auto) 0.1, Basophils (%) ( Auto) 0.1, Neutrophils # (Auto) 21.0 H, Lymphocytes # (Auto) 1.0 L, Monocytes # (Auto) 1.1 H, Eosinophils # (Auto) 0.0, Basophils # (Auto) 0.0, Calcium Level 9.0, Aspartate Amino Transf (AST/SGOT) 37, Alanine Aminotransferase (ALT/SGPT) 79 H, Alkaline Phosphatase 449 H, Total Bilirubin 0.6, Total Protein 6.6, Albumin 2.0 L Vital Signs Date Time Temp Pulse Resp B/P (MAP) Pulse Ox O2 Delivery O2 Flow Rate FiO2 09/26/16 23:25 25 Room Air 09/26/16 20:32 115 127/62 09/26/16 20:00 98.6 92 09/25/16 04:00 2.0 I&O- Last 24 Hours up to 6 AM 09/27/16 05:59 Intake Total 360 ml Output Total 500 ml Balance -140 ml GME ATTESTATION GME ATTESTATION My preceptor for this patient encounter was Dr. Charito Puente, and was physically present in the building during the encounter and was fully available. As needed, all aspects of the patient interview, examination, medical decision making process, and medical care plan development were reviewed and approved by the preceptor. Preceptor is aware and concurs with the plan as stated in the body of this note and will attest to such by his/her cosignature. HALEY TAYLOR OGME-1 Sep 27, 2016 01:04
[2016-09-27 01:07] LABS: ABG BASE EXCESS -0.8 (-2.0-2.0); ABG PARTIAL PRESSURE CO2 29.9 mmHg (35.0-45.0); ABG PARTIAL PRESSURE O2 66.3 mmHg (75.0-100.0); ABG STANDARD HCO3 23.7 MEQ/L (22.0-26.0); ABG TOTAL CO2 22.9 MEQ/L (23.0-31.0); ABG pH (ARTERIAL) 7.484 UNITS (7.350-7.450)
[2016-09-27 01:40] LABS: ALBUMIN 1.8 GM/DL (3.2-5.2); ALBUMIN/GLOBULIN RATIO 0.41 (1.00-1.93); BILIRUBIN,TOTAL 0.7 MG/DL (0.2-1.0); CALCIUM LEVEL 8.2 MG/DL (8.8-10.2); CREATININE FOR GFR 4.97 MG/DL (0.70-1.30); GLOMERULAR FILTRATION RATE 12.5 (>49); POTASSIUM SERUM 3.8 MEQ/L (3.5-5.1); TOTAL PROTEIN 6.2 GM/DL (6.4-8.2)
[2016-09-27 01:58] LABS: ADD MANUAL DIFFER YES; DIFF SLIDE NUMBER 87; MEAN CORPUSCULAR HEMOGLOBIN 25.1 pg (27.0-33.0); MEAN CORPUSCULAR HGB CONC 31.8 g/dl (32.0-36.5); PLATELET COUNT, AUTOMATED 475 k/mm3 (150-450); RED CELL DISTRIBUTION WIDTH 18.5 % (11.5-14.5)
[2016-09-27 02:15] LABS: ANISOCYTOSIS 2+; BANDS 1 % (< 11); MICROCYTOSIS 1+
[2016-09-27 02:16] LABS: HYPOCHROMASIA 1+
[2016-09-27 04:00] VITALS: BP 117/69
[2016-09-27 05:39] LABS: ADD MANUAL DIFFER YES; DIFF SLIDE NUMBER 28; MEAN CORPUSCULAR HEMOGLOBIN 25.4 pg (27.0-33.0); MEAN CORPUSCULAR HGB CONC 31.8 g/dl (32.0-36.5); MEAN CORPUSCULAR VOLUME 79.8 fl (80.0-96.0); PLATELET COUNT, AUTOMATED 426 k/mm3 (150-450); RED CELL DISTRIBUTION WIDTH 18.7 % (11.5-14.5)
[2016-09-27 05:42] LABS: INR 2.28
[2016-09-27 05:47] LABS: WHITE BLOOD COUNT 44.5 K/mm3 (4.0-10.0)
[2016-09-27 05:56] LABS: ALBUMIN 1.7 GM/DL (3.2-5.2); ALBUMIN/GLOBULIN RATIO 0.43 (1.00-1.93); BILIRUBIN,TOTAL 0.7 MG/DL (0.2-1.0); CALCIUM LEVEL 8.4 MG/DL (8.8-10.2); CREATININE FOR GFR 5.21 MG/DL (0.70-1.30); GLOMERULAR FILTRATION RATE 11.8 (>49); MAGNESIUM LEVEL 2.3 MG/DL (1.8-2.4); POTASSIUM SERUM 3.8 MEQ/L (3.5-5.1); TOTAL PROTEIN 5.7 GM/DL (6.4-8.2)
[2016-09-27] MEDS: LEVOTHYROXINE 50MCG TABLET (0.05MG) PO SCH (06:14)
[2016-09-27] MEDS: SLF 3 ML SYR IV SCH ×3 (06:14→20:59)
[2016-09-27 06:41] LABS: BANDS 1 % (< 11); HYPOCHROMASIA 2+; MICROCYTOSIS 1+; NUCLEATED RED BLOOD CELL 1 % (0-0)
[2016-09-27 06:42] LABS: ANISOCYTOSIS 1+
[2016-09-27] MEDS: IPRATROPIUM 0.5MG/ALBUTEROL 2.5MG INH SOL UD 3ML (DUONEB)(J7620) NEB SCH ×2 (07:09→20:00)
[2016-09-27 07:34] LABS: REASON FOR REVIEW COMPREHENSIVE REVIEW
[2016-09-27 08:00] VITALS: BP 116/64
--- NOTE | 2016-09-27 08:20 | REP ---
Portable chest, single AP view, the patient semi upright, 01:15 a.m.: Comparison is 09/20/2016. There is a comparison chest CT dated 09/18/2016. Multiple lung nodules and masses are again noted diffusely throughout both lung flaherty, unchanged from both prior studies. By CT there is a left pleural effusion. This is not visible on the current portable semi upright plane film study. There is a right IJ central venous catheter with the tip at the confluence of the superior vena cava and right atrium, not present previously. There is no right pneumothorax or pleural fluid collection. Cardiac size is upper normal for portable positioning. Signed by Arian Tellez MD 09/27/2016 08:11 A
[2016-09-27] MEDS ORDERED: LevoFLOXacin 750 MG TABLET PO ONE (09:00)
[2016-09-27] MEDS: SENNA 8.6 MG TAB (SENOKOT) PO SCH ×2 (10:15→20:57)
[2016-09-27] MEDS: ASPIRIN 325 MG TAB PO SCH (10:15)
[2016-09-27] MEDS: HEPARIN SOD (PORCINE) 5000 UNITS/ML VIAL SQ SCH (10:15)
[2016-09-27] MEDS: METOPROLOL TART 25 MG TABLET PO SCH ×2 (10:19→20:58)
[2016-09-27] MEDS: predniSONE 20 MG TAB PO SCH (10:20)
[2016-09-27] MEDS: MULTIVITAMINS/MINERALS THERAP 1 TAB PO SCH (10:20)
[2016-09-27] MEDS: FAMOTIDINE 20 MG TAB PO SCH (10:20)
[2016-09-27] MEDS: FOLIC ACID 1 MG TAB PO SCH (10:20)
[2016-09-27] MEDS ORDERED: GASTROGRAFIN SOLUTION 30ML PO ONE (11:15)
[2016-09-27] MEDS: ATORVASTATIN 20 MG TAB PO SCH (11:17)
[2016-09-27] MEDS ORDERED: GASTROGRAFIN SOLUTION 30ML (Q9963) PO ONE (11:45)
[2016-09-27 12:00] VITALS: BP 116/65
[2016-09-27] MEDS ORDERED: LIDOCAINE 1% SDV 5 ML VIAL SC ONE (12:30)
[2016-09-27] MEDS ORDERED: HEPARIN 1,000 UNITS/ML 10ML VIAL (FOR RADIOLOGY& DIALYSIS ONLY) IV ONE (12:30)
[2016-09-27] MEDS ORDERED: ISOVUE-370 76% 100ML VIAL (Q9967) As Ordered ONE (12:53)
--- NOTE | 2016-09-27 13:28 | IPNPDOC ---
Text Note Date of Service The patient was seen on 09/27/16. NOTE Patient seen and examined at bedside. Patient had an episode of tachycardia with VR in 150s and fever 100.9, shortness of breath last night. He was borges cultured and restarted on Cefepime. This morning, patient doesn't remember what happened last night, he stated he is feeling about the same as yesterday, he is still on 3L NC oxygen. Denies any chill, chest pain, sob, abdominal pain, nausea , vomiting, diarrhea, constipation, blood in urine or stool. Denies any other current new complaints. Objective: Vitals: (See below) General: Pleasant elderly male. Appears to be sleepy. Appears to be at baseline mentation. Lying comfortably in bed, AAOx3. NAD. HEENT : NC/AT, edentulous. PERRLA, EOMI, MMM Cardio : RRR, 3/6 systolic murmur, right perma-cath in place, area is C/D/I Pulm : CTA B/L Abdomen: soft, NT, +BS, ileal conduit in place, draining clear urine Ext : No edema, clubbing, or cynosis Skin : Warm and dry Neuro : No gross focal neurological deficit Labs ( See below). Assessment and Plan: 66-year-old male with a past medical history of bladder cancer, status post bladder resection and ileal conduit urinary diversion, lung nodules, which is likely cancer and follows with oncology, noninsulin dependent type 2 diabetes, history of deep vein thrombosis (DVT), factor V Leiden on warfarin at home, coronary artery disease status post coronary artery bypass graft (CABG), presented with: 1. Fever and rigor with leukocytosis likely due to Sepsis vs. Cancer. - fever resolved on 09/22/16 - etiology not clear - sepsis (UTI +/- PNA) vs malignancy related. - +UTI questionable - polymicrobial - possibly colonization given his ilial conduit/urostomy - ID c/s appreciated - Hemo/Onc c/s appreciated - DC'd cefepime and Zyvox yesterday 09/26/16 - Started patient on Levofloxacin today 09/27/16 - Leukocytosis much worsened on 09/27/16, - patient has completed several courses of antimicrobial therapy in the recent past due to fevers and suspected infection 2. Elevated BNP and cardiac markers - 09/27/16 Possible demand ischemia. EKG was similar compared to before, possible ACS will continue to trend - Will check with Nephrology if patient should be dialyzed again today. 3. Possible bacteremia. - 03/02 +BCx, non-identifiable organism 4. Acute renal failure - was oliguric - urinary output improving - likely superimposed on CKD - UTI +/- ATN - has had HDs - will continue to monitor renal function off HD - holding nephrotoxic agents. - appreciate nephrology consultation - continue IV antibiotics. - FeNa shows likely prerenal etiology. - continue Steroid. 5. Hyperkalemia - resolved - s/p HD 6. Transaminitis - likely liver failure from Keytruda less likely metastatic cancer - essentially resolved - continue with steroid therapy - d/w patient's oncologist Dr. Levin in [place] and in-house oncology Dr. Gardner - assistance appreciated - Switching patient to Prednisone 90 mg daily on 09/27/16, plan to keep on that dose for a week then start taper per Dr. Gardner - MRCP didn't show duct dilation, however did show a few liver nodules largest 3.2 cm - Holding all hepatotoxic agents. - AMA was normal. - Negative hepatitis panel. 7. Confusion and night time wakefulness - Likely from high dose steroid - Switching to PO steroid and start tapering in a week from 09/27/16 8. Metastatic bladder cancer, s/p radical cystectomy - s/p chemo with complications as per above - oncology c/s appreciated 9. Acute/chronic anemia - iron deficiency complicated with chemotherapy, Keytruda, which was given vs. Sepsis. - Patient received transfusion prior to admission - s/p 2 u PRBC - H/H stable. - Peripheral smear = likely secondary to chronic disease versus malignancy. 10. Hyponatremia - resolved 11. Lactic acidosis - resolved. 12. History of DVT complicated with factor V Leiden. - patient refused taking warfarin since a few days ago before admission. According to patient, "he just doesn't want to take it." - Restarted Coumadin 5 mg on 09/24/16 due to INR down to 1.53 from 5.29 13. CAD s/p CABG - continue beta debbie with hold parameters. DVT prophylaxis: SCD, theraputic warfarin Code: DNR/DNI Disposition: Condition much improved. Anticipating discharge in 48-72 hours. Family requesting transfer of care to local oncologist, Dr. Gardner has agreed. Patient's family no longer wants the transfer. 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 VS,Fishbone, I+O VS, Fishbone, I+O Laboratory Tests 09/27/16 01:05 Red Blood Count 3.83 L, Mean Corpuscular Volume 79.0 L, Mean Corpuscular Hemoglobin 25.1 L, Mean Corpuscular Hemoglobin Concent 31.8 L, Red Cell Distribution Width 18.5 H, Calcium Level 8.2 L, Aspartate Amino Transf (AST/SGOT ) 31, Alanine Aminotransferase (ALT/SGPT) 63, Alkaline Phosphatase 400 H, Total Bilirubin 0.7, Total Protein 6.2 L, Albumin 1.8 L 09/27/16 05:04 Red Blood Count 3.54 L, Mean Corpuscular Volume 79.8 L, Mean Corpuscular Hemoglobin 25.4 L, Mean Corpuscular Hemoglobin Concent 31.8 L, Red Cell Distribution Width 18.7 H, Calcium Level 8.4 L, Aspartate Amino Transf (AST/SGOT ) 26, Alanine Aminotransferase (ALT/SGPT) 60, Alkaline Phosphatase 353 H, Total Bilirubin 0.7, Total Protein 5.7 L, Albumin 1.7 L Vital Signs Date Time Temp Pulse Resp B/P (MAP) Pulse Ox O2 Delivery O2 Flow Rate FiO2 09/27/16 12:00 98.3 98 20 116/65 (82) 99 Nasal Cannula 3.0 09/27/16 01:10 35 I&O- Last 24 Hours up to 6 AM 09/27/16 06:00 Intake Total 360 ml Output Total 900 ml Balance -540 ml GME ATTESTATION GME ATTESTATION My preceptor for this patient encounter was physically present in the building during the encounter and was fully available. As needed, all aspects of the patient interview, examination, medical decision making process, and medical care plan development were reviewed and approved by the preceptor. Preceptor is aware and concurs with the plan as stated in the body of this note and will attest to such by his/her cosignature. ATTENDING NOTE I, Lashawn Saba, have both independently examined this patient as well as reviewed the documentation. I have discussed in detail with the resident the findings and plan of treatment as documented in the residents documentation. I will continue to follow the patient and offer further guidance to the patients care as necessary during this hospital stay. MELECIO MARIA DO Sep 27, 2016 13:28 LASHAWN SABA MD Oct 01, 2016 17:30
--- NOTE | 2016-09-27 13:54 | IPN ---
DATE: 09/26/2016 Mr. Damon is seen this morning on his bedside during hemodialysis. His is present and she reports that he does not sleep well at night. He has been confused and disoriented. There is no dyspnea, chest pain, nausea, or vomiting. On physical exam, temperature 97.2 degrees Fahrenheit, heart rate 106 per minute, respiratory rate 18 per minute. Blood pressure 154/87 mmHg and oxygen saturation 94% on room air. Head is atraumatic. Ears, nose and throat are unremarkable. He is edentulous and without any thrush or ulcers. Heart sounds are tachycardic and irregular. Lungs have moderate bilateral air entry with poor inspiratory effort. Abdomen is soft and nontender. Urostomy is draining clear urine. There is only a small amount of urine in the bag. Extremities have no cyanosis or clubbing. He has about a trace of leg edema. Skin has no rash or ulcers. Neurologically, he remains confused and disoriented. Today's labs shows a WBC count of 23.2, hemoglobin 9.3 and hematocrit 30.3. Platelets are 504,000. Sodium 140 and potassium 4.9. BUN 86 and creatinine 6.98. Glucose 282. Calcium 8.4. PROBLEMS: 1. Oliguric acute renal failure. The patient remains dialysis dependent and is currently being dialyzed. He is tolerating dialysis treatment well. His volume status is well compensated and electrolytes are within normal range. 2. Sepsis. The patient remains afebrile and continues with antibiotics. All recent blood cultures have been negative. 3. Anemia. This is related to acute renal failure. The patient will be given 200 mcg of Aranesp during dialysis today. 4. Metastatic bladder cancer, status post cystectomy. The patient's wishes to get oncology evaluation done locally here as the patient is not likely to be transferred right away. I conveyed this to Dr. Cleaning. 5. Encephalopathy. Probably related to his multiple chronic comorbid conditions and acute renal failure. The patient seems to be gradually improving. He will be dialyzed for three and a half hours today.
--- NOTE | 2016-09-27 13:57 | REP ---
CT CHEST WITH CONTRAST: 09/27/2016 COMPARISON: Noncontrast CT 09/18/2016. CLINICAL HISTORY: Lung carcinoma. Evaluate for pneumonia. There are numerous metastatic lesions throughout both lungs size 4 cm to less than 1 cm. Bilateral effusions are noted, new on the right, larger on the left, the study 8 days ago. Compressive atelectatic changes in both lower lung zones due to the effusions. I cannot discern a demonstrable difference in the size, number of metastatic lesions during this short interval. I do not see air bronchograms that would clearly define an acute pneumonia in areas without compressive atelectasis. Heart size unchanged. There are multiple mediastinal nodes, some hilar nodes, but the axilla and supraclavicular regions are intact. There is an indwelling right jugular catheter with tip in the SVC. Tracheal airway intact. There are again noted to be degenerative changes in the spine along with sternotomy wires. Medial clavicles, scapulae, and spine without acute findings. There is a right lateral rib fracture, #6 in the mid axillary line, not definitely visible on the previous study. There is no expansion to suggest a definite pathologic fracture. The upper abdomen will be discussed in detail on the CT abdomen/pelvis this date. IMPRESSION: 1. Innumerable metastatic lesions throughout both lungs up to 4 cm in size and grossly unchanged. 2. New right and increased left pleural effusions, small in size but with some compressive atelectasis now seen adjacent to both in the lower lung zones. I do not see other areas of compressive atelectasis or consolidation with air bronchograms. No pericardial effusion or thickening. There are small mediastinal nodes. 3. New right lateral 6th rib fracture with resorption along the fracture line not visible on previous CT of the displaced rib fracture. Signed by Soham Hawkins MD 09/27/2016 07:03 P
--- NOTE | 2016-09-27 13:58 | REP ---
CT ABDOMEN AND PELVIS WITH CONTRAST: 09/27/2016 CLINICAL HISTORY: Evaluate for intra-abdominal source of infection. No known metastatic malignancy. TECHNIQUE: Scanning through the abdomen and pelvis after a bolus of 100 mL Isovue 370 and oral Gastrografin mixture per our protocol. Lung bases show the bilateral pleural effusions new on the right larger on the left than last week. Multiple small and large metastatic masses throughout both lungs. Heart not grossly enlarged. There is no hiatal hernia. No definite pericardial thickening or effusion. There are liver nodules with a 3.4 cm lesion in the caudate lobe, 11 mm lesion anteriorly in the right hepatic lobe on image 30. Another subtle 11 mm lesion on image 26 near the subcapsular region and inferiorly in the right hepatic lobe, a 2.4 cm lesion is seen. No other significant liver lesions. There is no splenomegaly or focal splenic lesion nor gross hepatomegaly. Gallbladder shows no calcified stone or mass. Pancreas grossly intact without focal lesion. The patient has a ileostomy in the right upper quadrant of the abdomen through the right rectus muscle resection. There is no hydronephrosis. Kidney function is symmetric without stone. Ureters reimplanted into a medial bladder anterior to the iliac vessels in the right mid abdomen. Small bowel loops are grossly intact. There is some inflammatory change along the left colon wall. Fluid in the lateral conal fascia on both sides of the abdomen and in the pelvis. I could not exclude some mild colitis on the left colon. Stomach collapsed without hiatal hernia. There is no perforation or free air evident in the abdomen or pelvis. In the deep pelvis, trace amount of free fluid. Bladder is absent. Abdominal portion of colon is distended with stool and liquid. Small bowel loops mostly fluid-filled not abnormally dilated. No ventral or inguinal hernia nor inguinal adenopathy. Bone windows show lumbar and thoracic spine with some degenerative changes greatest in the lower thoracic region with disc space narrowing and vacuum phenomenon and compression deformity or spondylolysis. Visualized ribs intact. CT PELVIS: The bony hips, pelvis, sacrum, SI joints and lumbosacral junction without acute bony finding. Vascular calcification iliac and femoral arteries noted. Pelvic free fluid seen. Small bowel loops intact. The colon shows evidence of colitis on the left side to the proximal sigmoid with a few scattered diverticula in the sigmoid without diverticulitis. Small bowel loops intact. No ventral or inguinal hernia. IMPRESSION: 1. Metastatic lesions in the liver, similar to that on the MRI liver 09/22/2016 and some new ascites in the abdomen and pelvis which is not present 10 days ago. 2. No gallstone in the pancreas. Adrenal glands and kidneys grossly intact. 3. Status post cystectomy with neobladder and ileostomy right abdomen without signs of obstruction. 4. The pancreas, aorta, small bowel loops grossly intact. No obstruction, mass or free air. 5. Colitis left colon is suggested. No ventral or inguinal hernia. Signed by Soham Hawkins MD 09/27/2016 07:04 P
--- NOTE | 2016-09-27 16:29 | ECGEPIP ---
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 LA conduction disturbance? Low voltages, slow precordial R-wave progression; Body habitus versus pulmonary disease. Incomplete LBBB. Small inferior Q waves. Nonspecific ST/T-wave abnormalities Increased heart rate and repolarization abnormality from 09/18/16 Clinical correlation advised. Rule out acute myocardial ischemia. Electronically Signed On 09-27-2016 16:29:56 EDT by Tam Connolly
--- NOTE | 2016-09-27 16:38 | ECGEPIP ---
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 Low voltages, incomplete RBBB, slow precordial R-wave progression, and persistent S waves V5 and V6; body habitus versus pulmonary disease Could not rule out prior septal injury. Mild diffuse repolarization abnormalities Improved with slower heart rate from earlier this same day Electronically Signed On 09-27-2016 16:37:54 EDT by Tam Connolly
[2016-09-27] MEDS ORDERED: MEROPENEM INJ 2 GM in NS 100 ML IV SCH (17:00)
[2016-09-27] MEDS ORDERED: WARFARIN SOD 4 MG TAB PO SCH (17:00)
[2016-09-27] MEDS ORDERED: MEROPENEM INJ 500 MG in D5W MINI-BAG PLUS 100 ML IV SCH (18:00)
[2016-09-27 20:00] VITALS: BP 119/61
[2016-09-27 20:58] VITALS: BP 116/65
--- NOTE | 2016-09-27 22:00 | IPN ---
DATE: 09/27/2016 Mr. Damon is seen this morning on his bedside. He is currently sitting in the chair. He is much better oriented and able to answer most of the questions appropriately though still at times he seems somewhat confused. The patient denies any dyspnea, chest pain, nausea, vomiting, fever or chills. He did have a low grade fever last night and became tachycardiac. This morning his chest x-ray did show bilateral infiltrates. His white cell count has also increased to 44,000 this morning. PHYSICAL EXAMINATION: The patient looks nontoxic, without any acute distress sitting in the chair. Temperature is 98.3 degrees Fahrenheit, heart rate 115 per minute and respiratory rate 22 per minute. Blood pressure 106/74 mmHg and oxygen saturation 93% on 3 liters oxygen. This is a new change as he was not on oxygen until yesterday. His head is atraumatic. There is no oral thrush or ulcers. Neck is supple and JVD is not abnormally distended sitting upright. Heart sounds are tachycardiac and irregular. Lungs with slightly diminished breath sounds at bases. Bilateral fine rales are audible. Abdomen is soft and nontender. Bowel sounds are present and urostomy is draining clear urine. Extremities have no cyanosis or clubbing. There is trace of leg edema. Today's labs show WBC count 39,000 this morning and a repeat one is 44.5 thousand. Hemoglobin is 9.0 and hematocrit 28.2. Sodium is 142 and potassium 3.8. BUN 58 and creatinine 5.21. A lactic acid level is 2.1. Earlier his lactic acid level was 3.2. Total CPK is 39 and troponin is 0.80. PROBLEMS: 1. Oliguric acute renal failure. The patient has been dialysis dependent and he was dialyzed yesterday. We will try to dialyze him again today in view of worsening hypoxemia and possible volume overload. 2. Leukocytosis and shortness of breath. Concerned about possibility of infection. I have discussed with Dr. Saba and have requested to get a CT scan of abdomen, pelvis and chest with IV contrast. I have also recommended to start antifungal antibiotic in view of worsening leukocytosis while the patient was already on broad-spectrum antibiotics. In order to correct his volume status, we are going to arrange hemodialysis later this afternoon and will try to remove about 2 liters of fluid if tolerated. He is tachycardiac and somewhat hypotensive so he might not tolerate fluid removal very well. 3. Anemia, only slight worsening but no significant change. At this point we will monitor without any need for transfusion. 4. Metastatic bladder cancer, status post cystectomy. The patient's family has requested oncology consultation locally here. However, the patient is currently not stable for any chemotherapy. His prognosis remains guarded.
[2016-09-28] VITALS: BP 115/60
[2016-09-28 04:00] VITALS: BP 139/92
[2016-09-28] MEDS: oxyCODONE 5MG TAB PO PRN (04:55)
[2016-09-28] MEDS: SLF 3 ML SYR IV SCH ×3 (04:56→22:15)
[2016-09-28] MEDS: LEVOTHYROXINE 50MCG TABLET (0.05MG) PO SCH (04:56)
[2016-09-28] MEDS: IPRATROPIUM 0.5MG/ALBUTEROL 2.5MG INH SOL UD 3ML (DUONEB)(J7620) NEB PRN (05:10)
[2016-09-28 06:20] LABS: INR 2.56
[2016-09-28 06:23] LABS: ADD MANUAL DIFFER YES; MEAN CORPUSCULAR HEMOGLOBIN 25.4 pg (27.0-33.0); MEAN CORPUSCULAR HGB CONC 31.1 g/dl (32.0-36.5); MEAN CORPUSCULAR VOLUME 81.5 fl (80.0-96.0); PLATELET COUNT, AUTOMATED 357 k/mm3 (150-450); RED CELL DISTRIBUTION WIDTH 19.2 % (11.5-14.5); WHITE BLOOD COUNT 27.7 K/mm3 (4.0-10.0)
[2016-09-28 06:33] LABS: ALBUMIN 1.8 GM/DL (3.2-5.2); ALBUMIN/GLOBULIN RATIO 0.45 (1.00-1.93); BILIRUBIN,TOTAL 0.6 MG/DL (0.2-1.0); CALCIUM LEVEL 8.4 MG/DL (8.8-10.2); CREATININE FOR GFR 4.34 MG/DL (0.70-1.30); GLOMERULAR FILTRATION RATE 14.6 (>49); MAGNESIUM LEVEL 2.3 MG/DL (1.8-2.4); POTASSIUM SERUM 4.1 MEQ/L (3.5-5.1); TOTAL PROTEIN 5.8 GM/DL (6.4-8.2)
[2016-09-28 07:24] LABS: ANISOCYTOSIS 2+; HYPOCHROMASIA 2+; POIKILOCYTOSIS 1+
[2016-09-28] MEDS: IPRATROPIUM 0.5MG/ALBUTEROL 2.5MG INH SOL UD 3ML (DUONEB)(J7620) NEB SCH (08:00)
[2016-09-28 08:16] VITALS: BP 127/65
--- NOTE | 2016-09-28 08:43 | REP ---
AP PORTABLE CHEST: 09/28/2016. Comparison: 09/27/2016, portable chest and CT, 09/20/2016 portable chest. History: Congestion, dyspnea. Metastatic lung disease. Findings: Sternotomy again noted. There is a right internal jugular dialysis catheter with tip in SVC at the right atrium unchanged. Innumerable masses and nodules throughout both lungs. Hazy opacity in the bases suggesting some atelectasis and/or infiltrate with effusions, certainly on the left, possibly on the right by radiograph but known by CT. There is cardiomegaly. There is some decrease in overall vascular congestion since yesterday. Signed by Soham Hawkins MD 09/28/2016 08:34 A
[2016-09-28] MEDS: METOPROLOL TART 25 MG TABLET PO SCH ×2 (09:00→09:43)
[2016-09-28] MEDS: ATORVASTATIN 20 MG TAB PO SCH ×2 (09:00→09:43)
[2016-09-28] MEDS: predniSONE 20 MG TAB PO SCH ×2 (09:00→09:41)
[2016-09-28] MEDS: FOLIC ACID 1 MG TAB PO SCH ×2 (09:00→09:42)
[2016-09-28] MEDS: ASPIRIN 325 MG TAB PO SCH ×2 (09:00→09:42)
[2016-09-28] MEDS: MULTIVITAMINS/MINERALS THERAP 1 TAB PO SCH ×2 (09:00→09:43)
[2016-09-28] MEDS: SENNA 8.6 MG TAB (SENOKOT) PO SCH ×2 (09:00→09:43)
[2016-09-28] MEDS ORDERED: CEFEPIME HCL 0.5 GM in D5W 50 ML IV SCH (09:00)
[2016-09-28] MEDS ORDERED: methylPREDNISolone INJ 125 MG/2 ML VIAL (J2930) IV SCH (09:00)
[2016-09-28] MEDS: FAMOTIDINE 20 MG TAB PO SCH (09:42)
[2016-09-28] MEDS ORDERED: HEPARIN 1,000 UNITS/ML 10ML VIAL (FOR RADIOLOGY& DIALYSIS ONLY) IV ONE (10:45)
--- NOTE | 2016-09-28 12:46 | IPNPDOC ---
Text Note Date of Service The patient was seen on 09/28/16. NOTE Patient seen and examined at bedside. Still tachycardic in 150s at night. Patient is sleepy during the day. Denied PO medication this morning. Denies any chill, chest pain, sob, abdominal pain, nausea, vomiting, diarrhea, constipation, blood in urine or stool. Denies any other current new complaints. Objective: Vitals: (See below) General: Pleasant elderly male. Appears to be sleepy. Appears to be at baseline mentation. Lying comfortably in bed, AAOx3. NAD. HEENT : NC/AT, edentulous. PERRLA, EOMI, MMM Cardio : RRR, 3/6 systolic murmur, right perma-cath in place, area is C/D/I Pulm : CTA B/L Abdomen: soft, NT, +BS, ileal conduit in place, draining clear urine Ext : No edema, clubbing, or cynosis Skin : Warm and dry Neuro : No gross focal neurological deficit Labs ( See below). Assessment and Plan: 66-year-old male with a past medical history of bladder cancer, status post bladder resection and ileal conduit urinary diversion, lung nodules, which is likely cancer and follows with oncology, noninsulin dependent type 2 diabetes, history of deep vein thrombosis (DVT), factor V Leiden on warfarin at home, coronary artery disease status post coronary artery bypass graft (CABG), presented with: 1. Fever and rigor with leukocytosis likely due to Sepsis vs. Cancer. - fever resolved on 09/22/16 - etiology not clear - sepsis (UTI +/- PNA) vs malignancy related. - +UTI questionable - polymicrobial - possibly colonization given his ilial conduit/urostomy - ID c/s appreciated - Hemo/Onc c/s appreciated - DC'd cefepime and Zyvox yesterday 09/26/16 - Started patient on Levofloxacin today 09/27/16 - Leukocytosis much worsened on 09/27/16, - patient has completed several courses of antimicrobial therapy in the recent past due to fevers and suspected infection - Dr. Gardner will come in and talk to patient and her family regarding the treatment options 2. Elevated BNP and cardiac markers - 09/27/16 Possible demand ischemia. EKG was similar compared to before, possible ACS will continue to trend - Will check with Nephrology if patient should be dialyzed again today. 3. Possible bacteremia. - 03/02 +BCx, non-identifiable organism 4. Acute renal failure - was oliguric - urinary output improving - likely superimposed on CKD - UTI +/- ATN - has had HDs - will continue to monitor renal function off HD - holding nephrotoxic agents. - appreciate nephrology consultation - continue IV antibiotics. - FeNa shows likely prerenal etiology. - continue Steroid. 5. Hyperkalemia - resolved - s/p HD 6. Transaminitis - likely liver failure from Keytruda less likely metastatic cancer - essentially resolved - continue with steroid therapy - d/w patient's oncologist Dr. Levin in [place] and in-house oncology Dr. Gardner - assistance appreciated - Switching patient to Prednisone 90 mg daily on 09/27/16, plan to keep on that dose for a week then start taper per Dr. Gardner - MRCP didn't show duct dilation, however did show a few liver nodules largest 3.2 cm - Holding all hepatotoxic agents. - AMA was normal. - Negative hepatitis panel. 7. Confusion and night time wakefulness - Likely from high dose steroid - Switching to PO steroid and start tapering in a week from 09/27/16 8. Metastatic bladder cancer, s/p radical cystectomy - s/p chemo with complications as per above - oncology c/s appreciated 9. Acute/chronic anemia - iron deficiency complicated with chemotherapy, Keytruda, which was given vs. Sepsis. - Patient received transfusion prior to admission - s/p 2 u PRBC - H/H stable. - Peripheral smear = likely secondary to chronic disease versus malignancy. 10. Hyponatremia - resolved 11. Lactic acidosis - resolved. 12. History of DVT complicated with factor V Leiden. - patient refused taking warfarin since a few days ago before admission. According to patient, "he just doesn't want to take it." - Coumadin 4mg 13. CAD s/p CABG - continue beta debbie with hold parameters. DVT prophylaxis: SCD, theraputic warfarin Code: DNR/DNI Disposition: Condition much improved. Patient's family no longer wants the transfer. 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 Dr. Mitchell recommend to initiate at least discussion of the possibility of hospice due to patient does have metastatic cancer that has a very poor prognosis. We have asked to come back to talk to him. Addendum 09/28/16 17:00 Patient developed a fever T was 104 and was tachy in 150s, confused. Dr. Saba discussed with patient's , sister, brother, they all agreed that it is patient's wish to not undergo any further medical therapy due to extremely poor prognosis. Patient's updated MOL[facility] form for [employer]. All medical therapy was withheld. Comfort measure only care was started. Patient discussed with Dr. Saba. VS,Fishbone, I+O VS, Fishbone, I+O Laboratory Tests 09/28/16 05:46 Red Blood Count 3.37 L, Mean Corpuscular Volume 81.5, Mean Corpuscular Hemoglobin 25.4 L, Mean Corpuscular Hemoglobin Concent 31.1 L, Red Cell Distribution Width 19.2 H, Calcium Level 8.4 L, Aspartate Amino Transf (AST/SGOT ) 17, Alanine Aminotransferase (ALT/SGPT) 43, Alkaline Phosphatase 292 H, Total Bilirubin 0.6, Total Protein 5.8 L, Albumin 1.8 L Vital Signs Date Time Temp Pulse Resp B/P (MAP) Pulse Ox O2 Delivery O2 Flow Rate FiO2 09/28/16 08:16 98.1 102 19 127/65 (85) 98 Nasal Cannula 3.0 09/27/16 01:10 35 I&O- Last 24 Hours up to 6 AM 09/28/16 06:00 Intake Total 290 ml Output Total 2700 ml Balance -2410 ml GME ATTESTATION E ATTESTATION My preceptor for this patient encounter was physically present in the building during the encounter and was fully available. As needed, all aspects of the patient interview, examination, medical decision making process, and medical care plan development were reviewed and approved by the preceptor. Preceptor is aware and concurs with the plan as stated in the body of this note and will attest to such by his/her cosignature. ATTENDING NOTE I, Lashawn Saba, have both independently examined this patient as well as reviewed the documentation. I have discussed in detail with the resident the findings and plan of treatment as documented in the residents documentation. I will continue to follow the patient and offer further guidance to the patients care as necessary during this hospital stay. MELECIO MARIA DO Sep 28, 2016 12:46 LASHAWN SABA MD Oct 01, 2016 17:32
[2016-09-28 14:10] VITALS: BP 150/83
[2016-09-28] MEDS: MORPHINE 2 MG/ML 1ML SYRINGE IV PRN (15:27)
[2016-09-28] MEDS ORDERED: ACETAMINOPHEN 650 MG SUPP PR ONE (15:30)
[2016-09-28] MEDS ORDERED: ACETAMINOPHEN TAB 650MG DOSE (2X325MG) PO PRN (15:30)
[2016-09-28] MEDS ORDERED: CHECK TO SEE IF PATIENT IS RECEIVING DIALYSIS TODAY AND REFER TO THE VANCOMYCIN ORDER XX SCH (16:00)
[2016-09-28] MEDS ORDERED: VANCOMYCIN HCL 1,000 MG, VIAL MATE ADAPTER 1 EACH in D5W 250 ML IV SCH (16:00)
[2016-09-28] MEDS ORDERED: VANCOMYCIN HCL 750 MG, VIAL MATE ADAPTER 1 EACH in D5W 250 ML IV SCH (16:00)
[2016-09-28] MEDS ORDERED: VANCOMYCIN INTERMITTENT/PULSE DOSING BY CLINICAL PHARMACIST PER DOSING PROTOCOL XX SCH (16:30)
[2016-09-28] MEDS ORDERED: IBUPROFEN 600 MG TAB PO ONE (16:30)
--- NOTE | 2016-09-28 16:36 | PHACANCOPD ---
PHARMACY VANCOMYCIN DOSING Pt Demographics Demographics Patient Age:66 , Weight:103.000 , Gender: male Adjusted Body Weight Date: 09/20/16, Adjusted Body Weight: [86.8] Kg Events Past 24 Hours Events Past 24 Hours: YES: Dialysis, NO: Diuretic Therapy, Change in CrCl, Fever, Elevation in WBC, Pending Diagnostics, Pending Procedures, Other Vancomycin Vancomycin indication: BACTEREMIA Vancomycin Target Ranges: 15-20 mcg/ml Vancomycin Load Y/N: No Load Dose Date Time Vancomycin Load Dose: Date: Time: Vancomycin Dose Date: 09/20/16. Current Vancomycin Dose: [1G IV @16] Intermittent Dosing?: Yes Labs Labs Item Value Date Time White Blood Count 39.0 K/mm3 *H 09/27/16 0105 White Blood Count 44.5 K/mm3 *H 09/27/16 0504 White Blood Count 27.7 K/mm3 H 09/28/16 0546 Creatinine 4.34 MG/DL H 09/28/16 0546 White Blood Count 23.2 K/mm3 H 09/26/16 0405 Vital Signs Label Value Date Time Patient Temperature 98.1 degrees F 09/28/16 0816 Temperature Source Temporal 09/28/16 0816 Patient Temperature 98.9 degrees F 09/28/16 1410 Temperature Source Temporal 09/28/16 1410 Micro Microbiology 09/28/16 Blood Culture, Received Pending 09/27/16 Blood Culture - Preliminary, Resulted No growth after 24 hours . All specim... 09/27/16 Blood Culture - Preliminary, Resulted No growth after 24 hours . All specim... 09/20/16 Blood Culture - Final, Complete NO GROWTH AFTER 5 DAYS 09/20/16 Blood Culture - Final, Complete NO GROWTH AFTER 5 DAYS 09/18/16 Blood Culture - Final, Complete 09/18/16 Blood Culture - Final, Complete NO GROWTH AFTER 5 DAYS 09/19/16 Stool Occult Blood (RADHAMES) - Final, Complete 09/19/16 Respiratory Virus Panel (PCR) (RADHAMES) - Final, Complete 09/19/16 MRSA Screen - Final, Complete 09/18/16 Urine Culture - Final, Complete Pseudomonas Aeruginosa Citrobacter Freundii Staphylococcus Haemolyticus Streptococcus Uberis Creatinine Clearance Date:09/20/16. Creatinine Clearance: [23.3ML/MIN.]. Assessment and Plan Maintaining Current Dose?: Yes Reason for dose change: No Dose Change Pharmacist Note Pharmacist Note 09/28/16: Pt. was d/c'd from Vanco on 09/21. They have now decided to restart Vanco. He was dialyized today 09/28, however continuation of HD is still uncertain. An oncologist will be talking with the family to determine continuation of treatment or comfort measures. Pt. currently has very poor renal function. We will start pt with intermittent Vanco dosing. Pt will receive 1G IV Vanco x1 @1700. I have scheduled random troughs for 6am over the next 3 days. We will continue to monitor and dose as appropriate based on random levels and kidney function. Date: 09/20/16. Pharmacist note: PT is a 66 year old male being treated for bacteremia goal trough 15-20mcg/ml. Vancomycin was recently d/c on 09/19 with last dose being 09/19 morning @ 05:00. Pt was previously being treated with 1g [id number] but has had a steady decrease in renal function to a current 23ml/min creatinine clearance. Dosing will be re initiated with 1g iv @16 09/20. A random is schedule to be collected with AM labs to have maintenance to be determined from there. We will continue to monitor and adjust dose as needed. S[facility]ER [facility] Sep 28, 2016 16:36
[2016-09-28] MEDS ORDERED: VANCOMYCIN HCL 1,000 MG, VIAL MATE ADAPTER 1 EACH in D5W 250 ML IV ONE ×6 (17:00)
[2016-09-28] MEDS ORDERED: SCOPOLAMINE 1.5 MG TRANSDERMAL TD PRN (17:15)
[2016-09-28] MEDS ORDERED: MORPHINE 2 MG/ML 1ML SYRINGE IV PRN (17:15)
[2016-09-28] MEDS ORDERED: LORazepam 2 MG/ML VIAL (J2060) IV PRN (17:15)
[2016-09-28] MEDS ORDERED: ACETAMINOPHEN 650 MG SUPP PR PRN (17:15)
[2016-09-29] MEDS: SLF 3 ML SYR IV SCH (06:29)
--- NOTE | 2016-09-29 06:49 | IPN ---
DATE: 09/28/2016 Mr. Damon is seen this morning on his bedside. His family is present in the room and they report that the patient does not sleep well at night. He did take at about 3-hour nap this morning. The patient remains confused at times and disoriented. He does not keep his oxygen on. His CT scan of chest and abdomen, pelvis were done yesterday which showed multiple metastatic lesions in both lungs and liver. I discussed with the patient's family this morning who was already aware of the CT scan findings. PHYSICAL EXAMINATION: Temperature 98.1 degrees Fahrenheit, heart rate 102 per minute and respiratory rate 19 per minute. Blood pressure 127/65 mm of mercury, oxygen saturation 98%. Head is atraumatic. Neck is supple and jugular venous distension (JVD) is moderately elevated. There is no oral thrush or ulcers. Heart sounds are irregular in rhythm and tachycardiac. Lungs with bilateral rales. Abdomen soft and nontender. Bowel sounds are present. Extremities have no cyanosis or clubbing. Today's labs show white blood count (WBC) 27.7, hemoglobin 8.5 and hematocrit 27.4. Sodium 139 and potassium 4.1. BUN 48 and creatinine 4.34. PROBLEMS: 1. Acute renal failure. The patient remains oliguric and has been dialyzed. We will plan to dialyze him again today due to shortness of breath and hypoxemia. Electrolytes are within normal range. 2. Acute pulmonary edema with hypoxemia. The patient did have ultrafiltration yesterday and we removed about 2 liters fluid. Today we will dialyze him again and remove at least 2 liters of extra fluid. 3. Metastatic bladder cancer, status post cystectomy. The patient has widespread metastatic disease in both lungs and liver. His overall prognosis remains poor. I did explain to the family and we will wait for oncology input. 4. Leukocytosis and hypoxemia. Possibly related to sepsis and may have infiltrates in the lungs. At present, he is on meropenem and leukocytosis has started to improve. He was also noticed to have colitis on his CT scan yesterday. 5. Anemia. At this point, the patient does not need a transfusion and anemia is stable so far. Overall his prognosis remains poor and I have discussed with his primary care team and suggested to get a family meeting for making a final decision about plan of care.
[2016-09-29] MEDS ORDERED: LevoFLOXacin 500 MG TABLET PO SCH (09:00)
[2016-09-29] MEDS ORDERED: ONDA4TAB5 PO (10:11)
[2016-09-29] MEDS ORDERED: COUM1TAB19 PO (10:11)
[2016-09-29] MEDS ORDERED: OXYCO5TA PO (10:11)
[2016-09-29] MEDS ORDERED: ACET65SU PR (10:11)
[2016-09-29] MEDS ORDERED: TRAN1.5D2 TD (10:11)
[2016-09-29] MEDS ORDERED: MORP1SOL PO (13:37)
[2016-09-29] MEDS ORDERED: ATRO1OPD PO (13:37)
[2016-09-29] MEDS ORDERED: LORA1TAB12 PO (13:37)
[2016-09-29] MEDS: oxyCODONE 5MG TAB PO PRN (15:05)
--- NOTE | 2016-09-29 18:24 | DSES ---
DATE OF ADMISSION: 09/18/2016 DATE OF DISCHARGE: 09/29/2016 Addendum to the discharge summary from 09/20/2016. The patient stayed in the hospital for a few more days. His condition worsened. On 09/27/2016, the patient spiked another fever of 104, and the patient was started on meropenem intravenously (IV), and he was extremely uncomfortable and was tachycardic with a heart rate in the 150s. At this point, the patient's family was contacted, and the patient's family decided that the patient should be made Comfort Measures Only. The patient's Medical Orders for Life-Sustaining Treatment (MOLST) form was updated and Comfort Measures Only care was initiated. On 09/29/2016, the patient was much more with it, and the patient agrees with Comfort Measures Only and requested home hospice. Therefore, hospice was consulted to set up for home hospice and on 09/29/2016, the patient was discharged home to receive hospice at home. DISCHARGE CONDITION: Guarded. Discharge to home with home hospice. DISCHARGE MEDICATIONS: Including new medications: - acetaminophen 650 mg per rectum every 4 hours as needed - atropine sulfate 1% droplet - lorazepam half a tablet by mouth every 4 hours as needed - Morphine Sulfate in every half mL concentration 0.25 to 1 mg by mouth every 2 hours as needed - Zofran 4 mg one tablet by mouth every 6 hours as needed The rest of his medications were stopped. FOLLOWUP: The patient should followup with primary care provider within 1 week and [facility] will continue care at the patient's home. The patient has been discussed with attending doctor, Dr. Saba. My preceptor for this patient encounter was Dr. Lashawn Saba. The preceptor was physically present in the building during the encounter and was fully available. As needed, all aspects of the patient interview, examination, medical decision making process, and medical care plan development were reviewed and approved by the preceptor. The preceptor is aware and concurs with the plan as stated in the body of this note and will attest to such by his/her cosignature. I, Lashawn Saba, have both independently examined this patient as well as reviewed the documentation. I have discussed in detail with the resident the findings and plan of treatment as documented in the residents documentation. I will continue to follow the patient and offer further guidance to the patients care as necessary during this hospital stay. TETE
--- NOTE | 2016-10-04 17:55 | ROOPDOC ---
[facility] Report Of Operation Report of Operation DATE OF PROCEDURE: 09/23/16 PREPROCEDURE DIAGNOSES: Acute renal failure requiring hemodialysis. POSTPROCEDURE DIAGNOSES: Acute renal failure requiring hemodialysis. PROCEDURE: Ultrasound and fluoroscopic guided right internal jugular vein 19 cm tip to cuff tunneled central venous catheter placement with EvenMore catheter. SURGEON: Dr. Chay Jones MD PRESIDENTIAL SUPPORT SPECIALIST: None INDICATION: Patient is a 66-year-old white male with pneumonia and acute renal failure and who requires access for hemodialysis. Patient will undergo placement of a right internal jugular vein tunneled central venous catheter placement for dialysis access. Risks benefits and alternative treatment options were discussed with the patient. Benefits included but were not limited to access for dialysis. Alternative treatment options included but were not limited to no intervention. Risks included but were not limited to infection, bleeding, pneumothorax, hemothorax, possible need for open surgical intervention, cerebrovascular accident, myocardial infarction, pulmonary embolus , DVT, loss of limb, loss of life and poor outcome. All the patient's questions were answered. Patient accepts these risks and agrees to proceed with right internal jugular vein tunneled central venous catheter placement for hemodialysis access. ANESTHESIA: Local with 10 cc of 2% lidocaine. ESTIMATED BLOOD LOSS: Minimal. IVF: 100 cc FLUOROSCOPIC TIME: 0.1 min. CONTRAST: None COMPLICATIONS: None IMPLANTS: Right internal jugular vein 19 cm tip to cuff tunneled central venous catheter placement with EvenMore catheter. PROCEDURE: Patient was taken to the angiography suite, placed supine on the angiography room table and the patient was prepped and draped in a standard surgical fashion. A time out was performed by myself and the staff in the room confirming the correct patient, procedure and laterality,. Ultrasound was used to evaluate the right internal jugular vein, which was noted to be easily compressible free of thrombus and widely patent. Ultrasound was then used to guide cannulation of the right internal jugular vein with a micro-puncture needle after anesthetizing the overlying skin with 2% lidocaine. The ultrasound guided cannulation was performed using concurrent real-time ultrasound visualization of the needle entry into the right internal jugular vein with permanent recording of the image performed. The micropuncture wire was then advanced to the micropuncture needle which was upsized to a micropuncture sheath. An Amplatz wire was then advanced to the micropuncture sheath under fluoroscopic guidance. The right internal jugular vein was then sequentially dilated under fluoroscopic guidance and an introducer sheath was positioned. A 19 cm tip to cuff catheter was then tunneled through a puncture wound in the right chest and brought out at the puncture wound at the right internal jugular vein entry site after anesthetizing the overlying skin with 2% lidocaine. The catheter was advanced through the introducer sheath and positioned with the tip in the superior vena cava right atrial junction under fluoroscopic guidance. Both ports of the catheter were then aspirated, noted to aspirate easily and then flushed with heparinized saline. The catheter was secured to the anterior chest wall using 2-0 Prolene suture after anesthetizing the overlying skin with 2% lidocaine. The puncture wound in the right neck was closed using a 4-0 Vicryl suture in an inverted interrupted fashion. All instrument, sponge and needle counts were correct at the end of the case. There were no complications. Dr. Jones was present for and directed the entire case. The PermCath is stable for use for hemodialysis access. RADIOLOGIC SUPERVISION AND INTERPRETATION: The initial ultrasound of the right internal jugular vein showed the vein to be widely patent, easily compressible and free of thrombus. Ultrasound was then used to guide cannulation of the right internal jugular vein. The ultrasound guided cannulation was performed using concurrent real-time ultrasound visualization of the needle entry into the right internal jugular vein with permanent recording of the image performed. The right internal jugular vein was sequentially dilated under fluoroscopic guidance. The final fluoroscopic image showed the catheter to be in good position and good alignment with the tip in the superior vena cava right atrial junction, with no pneumothorax or hemothorax present. The tunneled central venous catheter is stable for use for hemodialysis access. Tam Jones MD Oct 04, 2016 17:55
--- NOTE | 2016-10-10 07:28 | IPN ---
DATE: 09/22/2016 Mr. Damon is seen in the morning of September 22, 2016 on his bedside. His is present in the room. The patient remains very weak and mostly bed-bound. The patient has known history of metastatic bladder cancer, status post radical cystectomy and urostomy. He has developed oliguric acute renal failure. His oral intake is poor and he has been treated with IV fluid. The patient denies any dyspnea or chest pain at the time of my visit. He has no vomiting or diarrhea but oral intake is extremely poor. He has no fever or chills at this point. He was admitted with high-grade fever and shivering and chills. He has been treated with multiple antibiotics for urinary tract infection and sepsis. PHYSICAL EXAMINATION: His temperature is 98.7 degrees Fahrenheit, heart rate 96 per minute and respiratory rate 20 per minute. Blood pressure 117/67 mmHg and oxygen saturation 93% on 2 liters oxygen. Intake and output records showed total intake 1460 and output only 350 during last 24 hours. There is minimal amount of urine in the bag. His head is atraumatic. Neck is supple and without jugular venous distention (JVD) or thyroid enlargement. Pupils are equal and reactive to light and sclera is anicteric. Ears, nose and throat are unremarkable. Heart: Sounds are regular and lungs sound clear to auscultation. Abdomen is soft and bowel sounds are present. Urostomy is draining clear urine. Extremities have no cyanosis or clubbing. Skin has no rash or ulcers. Neurologically, he seems to be without any focal deficit though somewhat frail and tremulous. His lab data shows WBC count 16.9, hemoglobin 9.6 and hematocrit 30.6. Platelets 383. Chemistry showed a sodium level of 130, potassium 5.2, chloride 99, CO2 21, BUN 76 and creatinine 6.53. AST 123, ALT 125 and alkaline phosphatase 832. C-reactive protein is 22.9. PROBLEMS: 1. Oliguric acute renal failure most likely related to sepsis and the patient has been oliguric despite IV fluid. I discussed with the patient and his about potential need for dialysis. We will monitor his kidney function for next 24 hours and repeat his chemistry later this afternoon. If his kidney function does not improve then dialysis will be initiated tomorrow morning. The patient and his both understand and they verbalized the understanding. This seems to be agreeable for dialysis. 2. Metabolic acidosis: We will continue with sodium bicarbonate drip at this point and see how he does. His oral intake is poor. I have explained to the patient and his that he is likely to require dialysis due to worsening metabolic acidosis caused by oliguric acute renal failure. 3. Hyperkalemia: This is mild and likely to correct with the improvement in kidney function and metabolic acidosis. At this point we will continue with sodium bicarbonate drip and recheck his chemistry later today. 4. Sepsis and fever: His leukocytosis persists. The patient continues with antibiotics and blood cultures have been negative so far. 5. Is metastatic bladder cancer, status post radical cystectomy. The patient is waiting for oncology consultation. At this point he is not suitable for chemotherapy in view of ongoing sepsis and acute renal failure. His prognosis remains guarded.
== END 2016-09-29 15:34 | disposition hospice, home (50) | DRG 698 ==
LOC: M ED 11:15 → M ED INP 16:31 → M PCU 18:09
PROVIDERS: ADMIT Internal Medicine; ATTEND Internal Medicine
PROC: 30233N1 Transfusion of Nonautologous Red Blood Cells into Peripheral Vein, Percutaneous Approach (ICD-10-PCS; principal; 2016-09-19)
PROC: 05HM33Z Insertion of Infusion Device into Right Internal Jugular Vein, Percutaneous Approach (ICD-10-PCS; 2016-09-23)
DX: T83.518A Infection and inflammatory reaction due to other urinary catheter, initial encounter (principal); A41.9 Sepsis, unspecified organism; J18.9 Pneumonia, unspecified organism; K72.00 Acute and subacute hepatic failure without coma; R65.11 Systemic inflammatory response syndrome (SIRS) of non-infectious origin with acute organ dysfunction; C78.00 Secondary malignant neoplasm of unspecified lung; E87.1 Hypo-osmolality and hyponatremia; N17.9 Acute kidney failure, unspecified; E22.2 Syndrome of inappropriate secretion of antidiuretic hormone; E87.2 Acidosis; D68.2 Hereditary deficiency of other clotting factors; N39.0 Urinary tract infection, site not specified; C78.7 Secondary malignant neoplasm of liver and intrahepatic bile duct; Z66 Do not resuscitate; C67.9 Malignant neoplasm of bladder, unspecified; I25.10 Atherosclerotic heart disease of native coronary artery without angina pectoris; D64.81 Anemia due to antineoplastic chemotherapy; D63.1 Anemia in chronic kidney disease; N18.9 Chronic kidney disease, unspecified; Z86.73 Personal history of transient ischemic attack (TIA), and cerebral infarction without residual deficits; R91.8 Other nonspecific abnormal finding of lung field; K57.30 Diverticulosis of large intestine without perforation or abscess without bleeding; B96.5 Pseudomonas (aeruginosa) (mallei) (pseudomallei) as the cause of diseases classified elsewhere; D50.9 Iron deficiency anemia, unspecified; Z79.899 Other long term (current) drug therapy; Z79.82 Long term (current) use of aspirin; Z93.3 Colostomy status; Z51.5 Encounter for palliative care; Z87.891 Personal history of nicotine dependence; E03.9 Hypothyroidism, unspecified; E11.9 Type 2 diabetes mellitus without complications; Z86.718 Personal history of other venous thrombosis and embolism; E87.5 Hyperkalemia; E78.5 Hyperlipidemia, unspecified; Y84.6 Urinary catheterization as the cause of abnormal reaction of the patient, or of later complication, without mention of misadventure at the time of the procedure